=== PATIENT | female | born 1965 | race Caucasian/White ===

== ENCOUNTER → 2016-05-25 | Outpatient (CLI) | payer BC ==
[~2016-05-25] MED LIST: BUPRTAB51 PO; CALC-214 PO; CHOL100010 PO; CYAN10005 PO; L-ME1CAP PO; OMEGCAP2 PO; SERT-234 PO
== END | disposition home or self-care (01) ==
LOC: C.CPL 16:17
DX: Z01.810 Encounter for preprocedural cardiovascular examination (principal)

== ENCOUNTER 2023-12-31 00:50 | Observation (INO) ==
[2023-12-31] MEDS: ONDANSETRON INJ 2 MG/ML 2 ML VIAL IV STA (01:24)
[2023-12-31] MEDS: SODIUM CHLORIDE 0.9% 1,000 ML IV ONE (01:25)
[2023-12-31 01:30] LABS: Basophils # (auto) 0.04 K/uL (0.00-0.20); Basophils % (auto) 0.4 %; Eosinophils # (auto) 0.04 K/uL (0.00-0.50); Eosinophils % (auto) 0.4 %; Hematocrit (blood only) 39.4 % (37.0-47.0); Hemoglobin 13.7 g/dl (12.0-16.0); Immature Granulocytes # (auto) 0.07 K/uL (0.01-0.20); Immature Granulocytes % (auto) 0.7 %; Lymphocytes # (auto) 1.06 K/uL (1.20-3.40); Lymphocytes % (auto) 10.1 %; Mean Corpuscular Hemoglobin 31.4 pg (25.0-34.0); Mean Corpuscular Hgb Conc 34.8 g/dL (32.0-36.0); Mean Corpuscular Volume 90.2 fL (80.0-100.0); Mean Platelet Volume 9.2 fL (9.4-12.4); Monocytes # (auto) 0.48 K/uL (0.11-0.59); Monocytes % (auto) 4.6 %; Neutrophils # (auto) 8.78 K/uL (1.40-6.50); Neutrophils % (auto) 83.8 %; Platelet Count 319 K/uL (130-400); RDW Coefficient of Variation 12.2 % (11.5-14.5); RDW Standard Deviation 40.6 fL (36.4-46.3); Red Blood Count 4.37 M/uL (4.20-5.40); White Blood Count 10.47 K/ul (4.8-10.8)
--- NOTE | 2023-12-31 01:42 | Emergency Department Note ---
History of Present Illness General Chief complaint: Vomiting Stated complaint: VOMITING Time Seen by Provider: 12/31/23 01:26 History of Present Illness Maximum Pain Intensity: 10 This 58-year-old female presents ER complaining of severe abdominal pain for the past few hours after eating white chili. Patient did make this herself. She has had a gastric bypass 14 years ago. No other abdominal surgeries. She has had vomiting without diarrhea. Patient denies chest pain, dyspnea, fever, cough, congestion, flulike illness. Home Medications Medication Instructions Recorded Confirmed Type cyanocobalamin (vitamin B-12) 1,000 mcg PO QAM 12/07/18 12/31/23 History 1,000 mcg tablet (Vitamin B-12) cholecalciferol (vitamin D3) 1,250 50,000 unit PO WK #12 caps 01/18/23 12/31/23 Rx mcg (50,000 unit) capsule bupropion HCl 150 mg tablet,12 hr 150 mg PO BID #180 ea 01/20/23 12/31/23 Rx sustained-release citalopram 20 mg tablet 20 mg PO HS #90 tabs 01/20/23 12/31/23 Rx Allergies Allergy/AdvReac Type Severity Reaction Status Date / Time hydrocodone Allergy Mild ITCHING Verified 03/23/23 08:57 Past Med/Surg History Problem List (Updated 12/31/23 @ 04:00 by Judie Garcia PA-C) Nausea & vomiting (Acute) Abdominal pain, acute (Acute) Acute hyponatremia (Acute) Chronic knee pain after total replacement of both knee joints Obesity, Class II, BMI 35-39.9 Vitamin D deficiency Restless legs syndrome Depression with anxiety Stress incontinence Hyperlipidemia Obese Iron deficiency Reactive airway disease (Acute) Vitamin D deficiency (Chronic) Depression with anxiety (Chronic) Medical History Sleep apnea Iron deficiency anemia Fibromyalgia Osteoarthritis Depression Anxiety Restless leg syndrome Surgical History History of trigger finger left hand middle finger History of arthroplasty of finger of right hand thumb joint History of arthroscopy of right knee History of total left knee replacement (TKR) History of total right knee replacement (TKR) History of gastric bypass History of esophagogastroduodenoscopy (EGD) History of tooth extraction History of wisdom tooth extraction Family History Grandmother (Maternal) Family hx of colon cancer Colorectal cancer Mother Atrial fibrillation Father COPD (chronic obstructive pulmonary disease) Sister Obesity Brother Arthritis Grandmother (Maternal) Colorectal cancer Other No family history of adverse response to anesthesia Denies family history of Ovarian cancer Breast cancer Social History Smoking Status: Never smoker Second Hand Exposure: Yes (father smoked); Do You Dip or Chew Tobacco: No; Hx Alcohol Use: Yes Alcohol type: beer, wine and hard liquor Alcohol Intake Frequency: Monthly or Less Hx Substance Use: No Preferred Language: Lithuanian Communication Ability: Effective Human Resources Clerk Required: No Beliefs That Will Affect Care: None marital status: Current Living Situation: Spouse current occupational status: employed current occupation: [employer] How many Children do You have: 1 Feels Safe at Home: Yes Childhood Exposure to Second-Hand Smoke: Yes Diet: regular caffeine: Yes Dental Care, Regularly: Yes Physical Activity Frequency: 1-2 Times per Week Seatbelt Use: always Sunscreen Use: No Assistive Devices: Contacts Review of Systems A total of 10 systems reviewed and were otherwise negative Physical Exam Vital Signs Vital Signs - 24 hr 12/31/23 00:52 12/31/23 01:08 12/31/23 01:09 Temperature 36.6 C Temperature Source Temporal Artery Scan Pulse Rate 60 56 L Pulse Rate [Apical] 59 L Respiratory Rate 24 19 17 Respiratory Effort / Characteristics Non-Labored Spontaneous Respiratory Depth Normal Respiratory Pattern Blood Pressure 164/92 H Blood Pressure [Left Arm] 158/118 H Blood Pressure Mean 116 Blood Pressure Mean [Left Arm] 131 Blood Pressure Position [Left Arm] Pulse Oximetry 100 100 100 Oxygen Delivery Method Room Air Room Air Room Air Sepsis Recent Fever Within 48 Hours No Sepsis New/Unexplained Change in Mental Status N/A Sepsis Action Taken by Nursing No Action Required 12/31/23 03:00 Temperature Temperature Source Pulse Rate Pulse Rate [Apical] 57 L Respiratory Rate 18 Respiratory Effort / Characteristics Non-Labored Spontaneous Respiratory Depth Normal Respiratory Pattern Regular Blood Pressure Blood Pressure [Left Arm] 152/90 H Blood Pressure Mean Blood Pressure Mean [Left Arm] 110 Blood Pressure Position [Left Arm] Sitting Pulse Oximetry 96 Oxygen Delivery Method Room Air Sepsis Recent Fever Within 48 Hours Sepsis New/Unexplained Change in Mental Status Sepsis Action Taken by Nursing VITALS: Vitals are noted on the nurse's note and reviewed by myself. Vital signs stable. GENERAL: Pleasant patient, in no acute distress, nondiaphoretic, well-developed well-nourished. SKIN: Capillary reflex less than 2 seconds. HEENT: Normocephalic. PERRLA. EOMI. Nares patent. Mucous membranes moist. Neck is supple without nuchal rigidity. HEART: Regular rate and rhythm LUNGS: Clear to auscultation bilaterally without wheezes, rales or rhonchi. No retractions or accessory muscle use. ABDOMEN: Positive bowel sounds x 4. Normal tympanic percussion. Soft, tender to palpation mid abdomen, without masses or organomegaly. Giles sign negative. No guarding or rebound tenderness. no CVA tenderness MUSCULOSKELETAL: No gross musculoskeletal defects. NEURO: Patient was alert and oriented to person place and time. No focal neurological deficits. Course Administered Medications Sodium Chloride (Nss) 1,000 mls @ 125 mls/hr IV .Q8H JENN Stop: 01/30/24 03:14 Last Admin: 12/31/23 03:47 Dose: 125 mls/hr Documented By: ANTHONY Discontinued Medications Dicyclomine HCl (Dicyclomine Hcl 10 Mg/Ml 2 Ml Amp/Vial) 20 mg IM NOW ONE Stop: 12/31/23 01:36 Last Admin: 12/31/23 02:07 Dose: 20 mg Documented By: JED Sodium Chloride (Nss) 1,000 mls @ 999 mls/hr IV .Q1H1M ONE Stop: 12/31/23 02:20 Last Infusion: 12/31/23 02:57 Dose: Infused Documented By: Admin: 12/31/23 01:25 Dose: 999 mls/hr Documented By: JED Famotidine (Pepcid 20mg Iv Push) 20 mg in 5 mls @ 2.5 mls/min IV NOW STA Stop: 12/31/23 01:36 Last Admin: 12/31/23 02:07 Dose: 2.5 mls/min Documented By: JED Acetaminophen (Ofirmev) 1,000 mg in 100 mls @ 400 mls/hr IV NOW STA Stop: 12/31/23 01:49 Last Infusion: 12/31/23 02:17 Dose: Infused Documented By: Admin: 12/31/23 02:07 Dose: 400 mls/hr Documented By: JED Ioversol (Optiray 320 100ml) 100 ml IV ONCE ONE Stop: 12/31/23 02:06 Last Admin: 12/31/23 02:06 Dose: 93 ml Documented By: ALYSON Ondansetron HCl (Ondansetron Inj 2 Mg/Ml 2 Ml Vial) 4 mg IV NOW STA Stop: 12/31/23 01:21 Last Admin: 12/31/23 01:24 Dose: 4 mg Documented By: JED Medical Decision Making Medical Records Attestation: I reviewed the patient's medical records. Home Medications Current Medication List: was personally reviewed by me Laboratory Data Attestation: I reviewed the patient's lab results. 12/31/23 01:13 12/31/23 01:13 Lab Results 12/31/23 12/31/23 12/31/23 Range/Units 01:12 01:13 03:35 WBC 10.47 (4.8-10.8) K/ul RBC 4.37 (4.20-5.40) M/uL Hgb 13.7 (12.0-16.0) g/dl Hct 39.4 (37.0-47.0) % MCV 90.2 (80.0-100.0) fL MCH 31.4 (25.0-34.0) pg MCHC 34.8 (32.0-36.0) g/dL RDW Std Deviation 40.6 (36.4-46.3) fL RDW Coeff of Zahida 12.2 (11.5-14.5) % Plt Count 319 (130-400) K/uL MPV 9.2 L (9.4-12.4) fL Immature Gran % (Auto) 0.7 % Neut % (Auto) 83.8 % Lymph % (Auto) 10.1 % Forrest % (Auto) 4.6 % Eos % (Auto) 0.4 % Baso % (Auto) 0.4 % Neut # (Auto) 8.78 H (1.40-6.50) K/uL Lymph # (Auto) 1.06 L (1.20-3.40) K/uL Forrest # (Auto) 0.48 (0.11-0.59) K/uL Eos # (Auto) 0.04 (0.00-0.50) K/uL Baso # (Auto) 0.04 (0.00-0.20) K/uL Immature Gran # (Auto) 0.07 (0.01-0.20) K/uL Sodium 130 L (136-145) mmol/L Potassium 3.7 (3.5-5.1) mmol/L Chloride 93 L (98-107) mmol/L Carbon Dioxide 24 (21-32) mmol/L Anion Gap 13 H (3-11) BUN 13 (6-23) mg/dl Creatinine 0.66 (0.6-1.2) mg/dl Est Cr Clr Drug Dosing 101.4 ml/min Est GFR ( Amer) 112.9 ml/min Est GFR (Non-Af Amer) 97.4 ml/min BUN/Creatinine Ratio 19.7 (10-20) Glucose 141 H (70-99(Fasting)) mg/dl Osmolality 273 L (280-300) mOsm/kg Lactate 0.9 (0.4-2.0) mmol/L Calcium 10.3 (8.6-10.3) mg/dl Magnesium 1.9 (1.7-2.4) mg/dl Total Bilirubin 0.7 (0.2-1.0) mg/dl AST 25 (13-39) U/L ALT 18 (7-52) U/L Alkaline Phosphatase 127 H (34-104) U/L Total Protein 7.9 (6.0-8.3) gm/dl Albumin 5.0 (3.4-5.0) gm/dl Globulin 2.9 (2.5-4.0) gm/dl Albumin/Globulin Ratio 1.7 (0.9-2) Lipase 20 (11-82) U/L HCG, Qual Negative (Negative) Urine Color Urine Appearance (Clear) Urine pH (4.5-7.5) Ur Specific [place] (1.000-1.030) Urine Protein (Negative) Urine Glucose (UA) (Negative) Urine Ketones (Negative) Urine Blood (Negative) Urine Nitrite (Negative) Urine Bilirubin (Negative) Urine Urobilinogen (Negative) Ur Leukocyte Esterase (Negative) 12/31/23 Range/Units 03:44 WBC (4.8-10.8) K/ul RBC (4.20-5.40) M/uL Hgb (12.0-16.0) g/dl Hct (37.0-47.0) % MCV (80.0-100.0) fL MCH (25.0-34.0) pg MCHC (32.0-36.0) g/dL RDW Std Deviation (36.4-46.3) fL RDW Coeff of Zahida (11.5-14.5) % Plt Count (130-400) K/uL MPV (9.4-12.4) fL Immature Gran % (Auto) % Neut % (Auto) % Lymph % (Auto) % Forrest % (Auto) % Eos % (Auto) % Baso % (Auto) % Neut # (Auto) (1.40-6.50) K/uL Lymph # (Auto) (1.20-3.40) K/uL Forrest # (Auto) (0.11-0.59) K/uL Eos # (Auto) (0.00-0.50) K/uL Baso # (Auto) (0.00-0.20) K/uL Immature Gran # (Auto) (0.01-0.20) K/uL Sodium (136-145) mmol/L Potassium (3.5-5.1) mmol/L Chloride (98-107) mmol/L Carbon Dioxide (21-32) mmol/L Anion Gap (3-11) BUN (6-23) mg/dl Creatinine (0.6-1.2) mg/dl Est Cr Clr Drug Dosing ml/min Est GFR ( Amer) ml/min Est GFR (Non-Af Amer) ml/min BUN/Creatinine Ratio (10-20) Glucose (70-99(Fasting)) mg/dl Osmolality (280-300) mOsm/kg Lactate (0.4-2.0) mmol/L Calcium (8.6-10.3) mg/dl Magnesium (1.7-2.4) mg/dl Total Bilirubin (0.2-1.0) mg/dl AST (13-39) U/L ALT (7-52) U/L Alkaline Phosphatase (34-104) U/L Total Protein (6.0-8.3) gm/dl Albumin (3.4-5.0) gm/dl Globulin (2.5-4.0) gm/dl Albumin/Globulin Ratio (0.9-2) Lipase (11-82) U/L HCG, Qual (Negative) Urine Color Yellow Urine Appearance Clear (Clear) Urine pH 8.5 H (4.5-7.5) Ur Specific [place] 1.017 (1.000-1.030) Urine Protein Negative (Negative) Urine Glucose (UA) Negative (Negative) Urine Ketones 1+ H (Negative) Urine Blood Negative (Negative) Urine Nitrite Negative (Negative) Urine Bilirubin Negative (Negative) Urine Urobilinogen Negative (Negative) Ur Leukocyte Esterase Negative (Negative) Imaging Data Attestation: I personally reviewed and interpreted this imaging study as follows: Radiologist's Impression: Abdomen/Pelvis CT 12/31/23 01:35 Exam(s): CT ABDOMEN + PELVIS With Contrast IV Amt: 93 MLOPTIRAY 320 EXAM: CT Abdomen and Pelvis With Intravenous Contrast CLINICAL HISTORY: Reason for exam: mid abd pain. TECHNIQUE: Axial computed tomography images of the abdomen and pelvis with intravenous contrast. CTDI is 27.28 mGy and DLP is 1366.12 mGy-cm. Automated exposure control was utilized for the study. A dose lowering technique was utilized adhering to the principles of ALARA. CONTRAST: Patient received 93 ML OPTIRAY 320 of IV contrast COMPARISON: No relevant prior studies available. FINDINGS: Lung bases: No consolidation. There are calcifications noted the lung bases compatible with old granulomatous disease. The heart is not enlarged but contains coronary artery calcifications. ABDOMEN: Liver: No mass. Gallbladder and bile ducts: No calcified stones. No ductal dilation. Pancreas: No mass. No ductal dilation. Spleen: No splenomegaly. Adrenals: No mass. Kidneys and ureters: No solid mass. No hydronephrosis. Stomach and bowel: There are postoperative changes involving the bowel. There is thickening of the distal esophageal wall. There is a small hiatal hernia. Stomach is distended containing fluid. There are distended loops of proximal and mid small bowel containing air and fluid. There is air and stool noted in the colon.. PELVIS: Appendix: Unremarkable CT scan appearance noted the appendix.. Bladder: No calculi are noted within the bladder.. Reproductive: Unremarkable as visualized. ABDOMEN and PELVIS: Intraperitoneal space: No free air. No significant fluid collection. Bones/joints: There are degenerative changes in the spine.. Soft tissues: Unremarkable. Vasculature: No abdominal aortic aneurysm. Lymph nodes: No enlarged lymph nodes. IMPRESSION: Stomach is distended containing fluid. There are distended loops of proximal and mid small bowel containing air and fluid. There is a small hiatal hernia. There is thickening of the distal esophageal wall. See discussion above. Electronically signed by: Justen Aly MD 12/31/23 03:47 AM MDM Narrative Prior records/ancillary studies reviewed. Triage Nursing notes reviewed. Additional history obtained from family. The patient's history was concerning for abdominal pain. Differential diagnosis: Etiologies such as appendicitis, diverticulitis, PUD, biliary pathology, UTI, pancreatitis, obstruction, mesenteric ischemia, aortic pathology, infections, inflammatory bowel disease, renal colic, as well as others were entertained. Physical examination findings: As above. ER treatment provided: An order was placed for continuous cardiac monitoring. The monitor shows a rate of 60-100 with a sinus rhythm per my Independent interpretation. IV fluids, Pepcid, Zofran, Bentyl and Tylenol were ordered On reassessment the patient felt better. Diagnostics interpreted by me: The labs Independently Interpreted by myself revealed hyponatremia and osmolarity levels were ordered No worrisome leukocytosis, stable H&H Negative lactic Imaging studies: CT was reviewed and read by radiology as above Consultation: A consultation was placed with the surgeon. The case was discussed and diagnostics were reviewed. He recommends medical admission Medicine was consulted and the case is discussed. Patient will be admitted to the medical service. Exam and history seem consistent with possible partial small bowel obstruction. Surgery and medicine were consulted. Surgery recommends medical admission. Medicine was consulted and case discussed. Patient will be admitted to the medical service. Patient was not vomiting so no NG tube was placed. Stable labs. She is agreeable treatment plan of admission. By the evaluation outlined above emergent etiologies such as appendicitis, diverticulitis, PUD, biliary pathology, UTI, pancreatitis, mesenteric ischemia, aortic pathology, inflammatory bowel disease, renal colic, as well as others were deemed relatively unlikely. The pt informed about the findings as listed above. All questions were answered and pleased with the treatment. The chart was completed utilizing [employer] voice recognition software. Grammatical errors, random word insertions, pronoun errors, and incomplete sentences are an occassional consequence of this system due to software limitations, ambient noise, and hardware issues. Any formal questions or concerns about the content, text, or information contained within the body of this dictation should be directly addressed to the physician industrial hire sales assistant for clarification. Impression & Plan Abdominal pain, acute, Acute hyponatremia, Nausea & vomiting Discharge Plan Visit Data Chief Complaint: Vomiting Stated Complaint: VOMITING ED Provider: Bobby Camarena ED Midlevel Provider: Judie Garcia Discharge Problem: Abdominal pain, acute, Acute hyponatremia, Nausea & vomiting Patient Disposition: Admitted As Inpatient Condition: Good Forms Stand Alone Forms: My [employer] Prescriptions Prescriptions: No Action cholecalciferol (vitamin D3) 1,250 mcg (50,000 unit) capsule 50,000 unit PO WK Qty: 12 3RF bupropion HCl 150 mg tablet sustained-release 12 hr 150 mg PO BID Qty: 180 3RF citalopram 20 mg tablet 20 mg PO HS Qty: 90 3RF cyanocobalamin (vitamin B-12) [Vitamin B-12] 1,000 mcg Tablet 1,000 mcg PO QAM Referrals Referrals: Sanjeev Weinberg MD [Primary Care Provider] -
[2023-12-31 01:47] LABS: Albumin Globulin Ratio 1.7 (0.9-2); BUN Creatinine Ratio 19.7 (10-20); Bilirubin,Total 0.7 mg/dl (0.2-1.0); Calcium 10.3 mg/dl (8.6-10.3); Creatinine Clr Calc Pharmacy 101.4 ml/min; Est GFR (African American) 112.9 ml/min; Est GFR (Non-African American) 97.4 ml/min; Globulin 2.9 gm/dl (2.5-4.0); Potassium 3.7 mmol/L (3.5-5.1); Total Protein 7.9 gm/dl (6.0-8.3)
[2023-12-31 01:48] LABS: Pregnancy Test, Serum Negative (Negative)
[2023-12-31 01:54] LABS: Magnesium 1.9 mg/dl (1.7-2.4)
[2023-12-31] MEDS: OPTIRAY 320 100ml IV ONE (02:06)
[2023-12-31] MEDS: FAMOTIDINE 20MG IV PUSH 20 MG/5 ML SYR IV STA (02:07)
[2023-12-31] MEDS: ACETAMINOPHEN 1,000 MG/100 ML VIAL IV STA (02:07)
[2023-12-31] MEDS: DICYCLOMINE HCL 10 MG/ML 2 ML AMP/VIAL IM ONE (02:07)
[2023-12-31] MEDS: SODIUM CHLORIDE 0.9% 1,000 ML IV SCH (03:47)
--- NOTE | 2023-12-31 03:48 | CT Scan Report ---
Exam(s): CT ABDOMEN + PELVIS With Contrast IV Amt: 93 MLOPTIRAY 320 EXAM: CT Abdomen and Pelvis With Intravenous Contrast CLINICAL HISTORY: Reason for exam: mid abd pain. TECHNIQUE: Axial computed tomography images of the abdomen and pelvis with intravenous contrast. CTDI is 27.28 mGy and DLP is 1366.12 mGy-cm. Automated exposure control was utilized for the study. A dose lowering technique was utilized adhering to the principles of ALARA. CONTRAST: Patient received 93 ML OPTIRAY 320 of IV contrast COMPARISON: No relevant prior studies available. FINDINGS: Lung bases: No consolidation. There are calcifications noted the lung bases compatible with old granulomatous disease. The heart is not enlarged but contains coronary artery calcifications. ABDOMEN: Liver: No mass. Gallbladder and bile ducts: No calcified stones. No ductal dilation. Pancreas: No mass. No ductal dilation. Spleen: No splenomegaly. Adrenals: No mass. Kidneys and ureters: No solid mass. No hydronephrosis. Stomach and bowel: There are postoperative changes involving the bowel. There is thickening of the distal esophageal wall. There is a small hiatal hernia. Stomach is distended containing fluid. There are distended loops of proximal and mid small bowel containing air and fluid. There is air and stool noted in the colon.. PELVIS: Appendix: Unremarkable CT scan appearance noted the appendix.. Bladder: No calculi are noted within the bladder.. Reproductive: Unremarkable as visualized. ABDOMEN and PELVIS: Intraperitoneal space: No free air. No significant fluid collection. Bones/joints: There are degenerative changes in the spine.. Soft tissues: Unremarkable. Vasculature: No abdominal aortic aneurysm. Lymph nodes: No enlarged lymph nodes. IMPRESSION: Stomach is distended containing fluid. There are distended loops of proximal and mid small bowel containing air and fluid. There is a small hiatal hernia. There is thickening of the distal esophageal wall. See discussion above. Electronically signed by: Justen Aly MD 12/31/23 03:47 AM
[2023-12-31 03:56] LABS: Appearance Urine Clear (Clear); Bilirubin Urine Negative (Negative); Blood Urine Negative (Negative); Color Urine Yellow; Glucose Urine UA Negative (Negative); Ketones Urine 1+ (Negative); Leukocyte Esterase Urine Negative (Negative); Nitrite Urine Negative (Negative); Protein Urine Negative (Negative); Specific Gravity Urine 1.017 (1.000-1.030); Urobilinogen Urine Negative (Negative); pH Urine 8.5 (4.5-7.5)
--- NOTE | 2023-12-31 04:12 | History & Physical Report ---
Date of Service December 31, 2023 Assessment & Plan (1) Small bowel obstruction: Plan: -Patient with nausea vomiting after a couple hours of eating white chili. She also is having abdominal pain. The symptoms resolved with Zofran, Bentyl, and IV Tylenol. -Abdominal pelvis CT showed distended loops of proximal and mid small bowel containing air-fluid. Small hiatal hernia. Thickening of the distal esophageal wall -ED provider reached out to surgery who recommends medical admit. -Surgery consulted. -Do not see the need for NG tube at this time as patient's nausea vomiting is stopped. -Zofran as needed. IV Tylenol for pain, has an allergy to hydrocodone, will hold off on any as patient's abdominal pain is stable at time of admission. -Strict n.p.o. -LR at 125. (2) Vitamin D deficiency: Plan: -Holding home medication due to n.p.o. status. (3) Depression with anxiety: Plan: -Holding home medication due to n.p.o. status (4) Acute hyponatremia: Plan: -Sodium of 130 in the ED. -Patient did state that she sometimes has short-term memory issues, though this has been worked up by her PCP and had neuropsych testing which was negative. -Continue on LR. -CMP on morning labs. Plan Fluids: LR at 125 Nutrition: N.p.o. Code status: full code DVT ppx: SCDs Consults: Surgery Dispo: med/surg History of Present Illness Chief Complaint: abd pain, poss SBO Primary Care Provider: Sanjeev Weinberg MD Patient is a 58-year-old with past medical history of depression, obesity, iron deficiency, and vitamin D deficiency, and history of gastric bypass 14 years ago who presents to the hospital with abdominal pain and possible small bowel obstruction. Patient was eating white chili for dinner and started to have diffuse abdominal pain with nausea and vomiting. This started to occur around 730 p.m. Patient then took some Tums which helped slightly. Her last bowel movement was formed at 10:30 PM. Denies any hematochezia or hematemesis. States that this was a large formed bowel movement. Denies any diarrhea. Denies any fevers, chills, chest pain, dysuria. Patient does state that she has some trouble remembering some episodes. She has had some memory issues in the past that has been worked up by her PCP with neuropsych testing being negative. Allergies Allergy/AdvReac Type Severity Reaction Status Date / Time hydrocodone Allergy Mild ITCHING Verified 03/23/23 08:57 Home Medications Medication Instructions Recorded Confirmed Type cyanocobalamin (vitamin B-12) 1,000 mcg PO QAM 12/07/18 12/31/23 History 1,000 mcg tablet (Vitamin B-12) cholecalciferol (vitamin D3) 1,250 50,000 unit PO WK #12 caps 01/18/23 12/31/23 Rx mcg (50,000 unit) capsule bupropion HCl 150 mg tablet,12 hr 150 mg PO BID #180 ea 01/20/23 12/31/23 Rx sustained-release citalopram 20 mg tablet 20 mg PO HS #90 tabs 01/20/23 12/31/23 Rx Past Med/Surg History Problem List (Updated 12/31/23 @ 04:42 by Charlie Scott, DO) Small bowel obstruction Nausea & vomiting (Acute) Abdominal pain, acute (Acute) Acute hyponatremia (Acute) Chronic knee pain after total replacement of both knee joints Obesity, Class II, BMI 35-39.9 Vitamin D deficiency Restless legs syndrome Depression with anxiety Stress incontinence Hyperlipidemia Obese Iron deficiency Reactive airway disease (Acute) Vitamin D deficiency (Chronic) Depression with anxiety (Chronic) Medical History Sleep apnea Iron deficiency anemia Fibromyalgia Osteoarthritis Depression Anxiety Restless leg syndrome Surgical History History of trigger finger left hand middle finger History of arthroplasty of finger of right hand thumb joint History of arthroscopy of right knee History of total left knee replacement (TKR) History of total right knee replacement (TKR) History of gastric bypass History of esophagogastroduodenoscopy (EGD) History of tooth extraction History of wisdom tooth extraction Family History Grandmother (Maternal) Family hx of colon cancer Colorectal cancer Mother Atrial fibrillation Father COPD (chronic obstructive pulmonary disease) Sister Obesity Brother Arthritis Grandmother (Maternal) Colorectal cancer Other No family history of adverse response to anesthesia Denies family history of Ovarian cancer Breast cancer Social History Smoking Status: Never smoker Second Hand Exposure: Yes (father smoked); Do You Dip or Chew Tobacco: No; Hx Alcohol Use: Yes Alcohol type: beer, wine and hard liquor Alcohol Intake Frequency: Monthly or Less Hx Substance Use: No Preferred Language: Slovenian Communication Ability: Effective Director Process Engineering Required: No Beliefs That Will Affect Care: None marital status: Current Living Situation: Spouse current occupational status: employed current occupation: [employer] How many Children do You have: 1 Feels Safe at Home: Yes Childhood Exposure to Second-Hand Smoke: Yes Diet: regular caffeine: Yes Dental Care, Regularly: Yes Physical Activity Frequency: 1-2 Times per Week Seatbelt Use: always Sunscreen Use: No Assistive Devices: Contacts Review of Systems Review of Systems: All systems reviewed & are unremarkable except as noted in Subjective Physical Exam Physical Exam: Constitutional: well-appearing, no acute distress HEENT: NCAT, no conjunctival injection CV: regular rhythm, no murmur appreciated, extremities well-perfused, no LE edema Resp: CTABL, no wheezes/rales/rhonchi appreciated, no increased work of breathing GI: soft, nondistended, diffuse abdominal tenderness, BS normoactive MSK: no gross deformities appreciated Skin: warm, dry, no rash appreciated Neuro: alert, oriented, no focal neurologic deficit appreciated Results & Data Results & Data Vital Signs (Past 12 Hours) Vital Signs Temp Pulse Pulse Resp BP BP Pulse Ox 12/31/23 03:00 57 L 18 152/90 H 96 12/31/23 01:09 59 L 17 158/118 H 100 12/31/23 01:08 56 L 19 100 12/31/23 00:52 36.6 C 60 24 164/92 H 100 O2 Del Method 12/31/23 03:00 Room Air 12/31/23 01:09 Room Air 12/31/23 01:08 Room Air 12/31/23 00:52 Room Air Supervising Physician Co-Signing Physician Notes Attending addendum: I have physically seen this patient, have supervised the medical residents activities, and agree with the H&P unless as otherwise noted. Assessment and Plan: Small bowel obstruction/severe abdominal pain/distended stomach with fluid/history of gastric bypass 14 years ago- NPO Zofran 4 mg IV every 6 hours as needed Acetaminophen 1 g IV every 8 hours as needed for mild pain or fever LR at 125 mL/h Status post normal saline 1 L bolus from the ED From the ED also received the following: Zofran 4 mg IV, famotidine 20 mg IV, Bentyl 20 mg IM, and Tylenol 1 g IV Pantoprazole 40 mg IV daily to address thickening of the distal esophageal wall Consult general surgery Hyponatremia- Sodium 130 on admission Likely associated with decreased oral intake IV fluids as noted above, recheck laboratories in the a.m. Depression with anxiety- For now, while n.p.o., hold bupropion and citalopram If any issues develop, could be given individual dosings of lorazepam 0.5 mg IV Resident Activity Tracking Resident Involvement: Resident Care Provided Care Provided: Adult Hospital Medicine
--- NOTE | 2023-12-31 06:00 | Billing Data ---
Date of Service December 31, 2023 Coding Level of Care Code 25966 INT INP/OBS CARE
[2023-12-31] MEDS: LACTATED RINGER'S 1,000 ML IV SCH (06:04)
[2023-12-31] MEDS: ONDANSETRON INJ 2 MG/ML 2 ML VIAL IV PRN (06:13)
[2023-12-31] MEDS: ACETAMINOPHEN 1,000 MG/100 ML VIAL IV PRN (06:42)
[2023-12-31] MEDS: PANTOprazole 40 MG in SYRINGE 0 ML IV SCH (10:37)
--- NOTE | 2023-12-31 13:47 | Surgery Consultation ---
Date of Consultation December 31, 2023 Assessment & Plan (1) Small bowel obstruction: History of Ale-en-Y gastric bypass, now with partial small bowel obstruction. She appears to be feeling better and is feeling hungry. We will wait till she has better return of bowel function before advancing her diet. No surgical intervention at this time If she starts to have more meaningful return of bowel function, we may advance her to clear liquids KUB tomorrow Surgical follow, call with questions or concerns (2) History of gastric bypass: (3) Obese: (4) Hyperlipidemia: History of Present Illness Attending Physician: Saravanan Martinez MD History of Present Illness 58-year-old female with history of Ale-en-Y gastric bypass presented with abdominal pain. Started after eating homemade white chicken chili for lunch and for dinner. She thought maybe the sour cream was old. She started having nausea and vomiting and felt bloated. This is not happened to her before. No history of other bowel obstructions or internal hernia. Allergies Allergy/AdvReac Type Severity Reaction Status Date / Time hydrocodone Allergy Mild ITCHING Verified 03/23/23 08:57 Home Medications Medication Instructions Recorded Confirmed Type cyanocobalamin (vitamin B-12) 1,000 mcg PO QAM 12/07/18 12/31/23 History 1,000 mcg tablet (Vitamin B-12) cholecalciferol (vitamin D3) 1,250 50,000 unit PO WK #12 caps 01/18/23 12/31/23 Rx mcg (50,000 unit) capsule bupropion HCl 150 mg tablet,12 hr 150 mg PO BID #180 ea 01/20/23 12/31/23 Rx sustained-release citalopram 20 mg tablet 20 mg PO HS #90 tabs 01/20/23 12/31/23 Rx Patient History Medical History Sleep apnea Iron deficiency anemia Fibromyalgia Osteoarthritis Depression Anxiety Restless leg syndrome Surgical History History of trigger finger left hand middle finger History of arthroplasty of finger of right hand thumb joint History of arthroscopy of right knee History of total left knee replacement (TKR) History of total right knee replacement (TKR) History of gastric bypass History of esophagogastroduodenoscopy (EGD) History of tooth extraction History of wisdom tooth extraction Family History Grandmother (Maternal) Family hx of colon cancer Colorectal cancer Mother Atrial fibrillation Father COPD (chronic obstructive pulmonary disease) Sister Obesity Brother Arthritis Grandmother (Maternal) Colorectal cancer Other No family history of adverse response to anesthesia Denies family history of Ovarian cancer Breast cancer Social History Smoking Status: Never smoker Second Hand Exposure: No; Do You Dip or Chew Tobacco: No; Hx Alcohol Use: Yes Alcohol type: beer, wine and hard liquor Alcohol Intake Frequency: Monthly or Less Hx Substance Use: No Preferred Language: Vietnamese Communication Ability: Effective Automation Specialist Required: No Beliefs That Will Affect Care: None marital status: Current Living Situation: Spouse current occupational status: employed current occupation: [employer] How many Children do You have: 1 Feels Safe at Home: Yes Childhood Exposure to Second-Hand Smoke: Yes Diet: regular caffeine: Yes Dental Care, Regularly: Yes Physical Activity Frequency: 1-2 Times per Week Seatbelt Use: always Sunscreen Use: No Assistive Devices: Contacts Review of Systems Review of Systems: All systems reviewed & are unremarkable except as noted in HPI & below Physical Exam Constitutional: WD/WN, vitals as above Respiratory: normal respiratory effort, lungs clear to auscultation Cardiovascular: RRR, no murmur, no edema Gastrointestinal (Abdomen): normal bowel sounds, soft, nontender, no hepatosplenomegaly Inspection/Auscultation: + abdominal surgical scar Results & Data Vital Signs (Past 12 Hours) Vital Signs Temp Pulse Pulse Resp BP Pulse Ox O2 Del Method 12/31/23 09:10 Room Air 12/31/23 07:16 36.7 C 61 20 113/71 95 Room Air 12/31/23 05:55 36.9 C 60 18 164/93 H 95 Room Air 12/31/23 05:55 36.9 C 60 18 164/93 H 95 Room Air 12/31/23 05:00 61 18 141/79 H 92 Room Air 12/31/23 03:00 57 L 18 152/90 H 96 Room Air Diagnostic Findings Personally viewed and interpreted the CT scan agree with the assessment of possible small bowel obstruction. This appears to involve the remnant stomach. There is no obvious evidence of internal hernia on the CT. Exam(s): CT ABDOMEN + PELVIS With Contrast IV Amt: 93 MLOPTIRAY 320 EXAM: CT Abdomen and Pelvis With Intravenous Contrast CLINICAL HISTORY: Reason for exam: mid abd pain. TECHNIQUE: Axial computed tomography images of the abdomen and pelvis with intravenous contrast. CTDI is 27.28 mGy and DLP is 1366.12 mGy-cm. Automated exposure control was utilized for the study. A dose lowering technique was utilized adhering to the principles of ALARA. CONTRAST: Patient received 93 ML OPTIRAY 320 of IV contrast COMPARISON: No relevant prior studies available. FINDINGS: Lung bases: No consolidation. There are calcifications noted the lung bases compatible with old granulomatous disease. The heart is not enlarged but contains coronary artery calcifications. ABDOMEN: Liver: No mass. Gallbladder and bile ducts: No calcified stones. No ductal dilation. Pancreas: No mass. No ductal dilation. Spleen: No splenomegaly. Adrenals: No mass. Kidneys and ureters: No solid mass. No hydronephrosis. Stomach and bowel: There are postoperative changes involving the bowel. There is thickening of the distal esophageal wall. There is a small hiatal hernia. Stomach is distended containing fluid. There are distended loops of proximal and mid small bowel containing air and fluid. There is air and stool noted in the colon.. PELVIS: Appendix: Unremarkable CT scan appearance noted the appendix.. Bladder: No calculi are noted within the bladder.. Reproductive: Unremarkable as visualized. ABDOMEN and PELVIS: Intraperitoneal space: No free air. No significant fluid collection. Bones/joints: There are degenerative changes in the spine.. Soft tissues: Unremarkable. Vasculature: No abdominal aortic aneurysm. Lymph nodes: No enlarged lymph nodes. IMPRESSION: Stomach is distended containing fluid. There are distended loops of proximal and mid small bowel containing air and fluid. There is a small hiatal hernia. There is thickening of the distal esophageal wall. See discussion above. Electronically signed by: Justen Aly MD 12/31/23 03:47 AM PG Care Time/CCT Total # of Minutes Spent Total Time Spent with Patient: Total time spent is greater than 50% in coordination of care (as documented) at patient's floor/unit and/or counseling patient: Coding Level of Care Code 90500 OFFICE CONSULT LVL M Diagnoses Small bowel obstruction K56.609 History of gastric bypass Z98.84 Class 2 obesity due to excess calories without serious comorbidity with body mass index (BMI) of 36.0 to 36.9 in adult E66.09; Z68.36 Obesity type: due to excess calories Obesity classification: adult class 2 (BMI 35 - 39.9) Serious obesity comorbidity presence: without serious comorbidity Body mass index: BMI 36.0-36.9 Pure hypercholesterolemia E78.00 Hyperlipidemia type: pure hypercholesterolemia (3) Obese Obesity type: due to excess calories Obesity classification: adult class 2 (BMI 35 - 39.9) Serious obesity comorbidity presence: without serious comorbidity Body mass index: BMI 36.0-36.9 Qualified Code(s): E66.09 - Other obesity due to excess calories; Z68.36 - Body mass index [BMI] 36.0-36.9, adult (4) Hyperlipidemia Hyperlipidemia type: pure hypercholesterolemia Qualified Code(s): E78.00 - Pure hypercholesterolemia, unspecified
[2023-12-31] MEDS: HYDROmorphone INJ 0.5 MG/0.5 ML SYR IV STA (14:23)
[2023-12-31] MEDS: buPROPion HCl 75 MG TABLET PO ONE (15:09)
--- NOTE | 2023-12-31 17:36 | Hospitalist Progress Note ---
Date of Service December 31, 2023 Assessment & Plan (1) Small bowel obstruction: Plan: Patient with nausea vomiting after a couple hours of eating white chili. She also is having abdominal pain. The symptoms resolved with Zofran, Bentyl, and IV Tylenol. - History of Ale-en-Y gastric bypass surgery approximately 16 years ago. - Abdominal pelvis CT showed distended loops of proximal and mid small bowel containing air-fluid. Small hiatal hernia. Thickening of the distal esophageal wall - Will defer NG tube placement at this time given nausea/vomiting resolved - General Surgery consulted > No surgical intervention at this time. > Continue n.p.o. status until more meaningful return of bowel function, and then advance to clear liquids. > KUB scheduled for 12/31 - Zofran as needed. IV Tylenol for pain, has an allergy to hydrocodone, will hold off on any as patient's abdominal pain is stable. - Continue IV fluids at 125 mls/hr (2) Vitamin D deficiency: Plan: Takes vitamin D3 and vitamin B12 supplementation at home -Continue to hold while n.p.o. status (3) Depression with anxiety: Plan: Takes bupropion and citalopram at home -Resumed bupropion per patient's request -Continue to hold citalopram until diet is advanced to clear liquids (4) Acute hyponatremia: Plan: Sodium of 130 in the ED. -Patient did state that she sometimes has short-term memory issues, though this has been worked up by her PCP and had neuropsych testing which was negative. -Continue on LR. -CMP on morning labs. Plan Updated multiple family members at bedside Resumed bupropion DVT ppx: SCDs CODE STATUS: Full code Admission and Anticipated Discharge Date Admission Date: December 31, 2023 Supervising Physician Co-Signing Physician Notes Attending Attestation - Chart reviewed, care plan d/w MANUELA Carrillo. I agree w/ the katz components of her documentation. SBO - appreciate gen surg input & recs. Cont conservative Rx. Saravanan Martinez MD Subjective Patient seen and evaluated at bedside with multiple family members. She reports that she is hungry and has a minor headache which she attributes to being hungry. She denies any abdominal pain, nausea, vomiting. She denies passing any gas or having a bowel movement at this time. We discussed maintaining n.p.o. status for today and waiting to advance to clear liquids until more bowel function returns. She is agreeable. She asked for her Wellbutrin to be resumed. No additional complaints or concerns at this time. Physical Exam Physical Exam: General: No acute distress, nondiaphoretic, well-developed, well-nourished. Skin: The skin was without rashes, erythema, edema, or bruising. Cardiac: Regular rate and rhythm without murmurs gallops or rubs. Pulm: Clear to auscultation bilaterally without wheezes, rales or rhonchi. No respiratory distress. 94% on room air. Abdominal: Soft, nontender, nondistended. Hypoactive bowel sounds. Neuro: A&O x3. No focal neurological deficits. Results & Data Results & Data Vital Signs (Past 12 Hours) Vital Signs Temp Pulse Resp BP Pulse Ox O2 Del Method 12/31/23 16:26 98.8 F 71 18 125/80 94 Room Air 12/31/23 09:10 Room Air 12/31/23 07:16 98.1 F 61 20 113/71 95 Room Air 12/31/23 05:55 98.4 F 60 18 164/93 H 95 Room Air 12/31/23 05:55 98.4 F 60 18 164/93 H 95 Room Air Laboratory Results Reviewed CBC Reviewed CMP Reviewed UA Diagnostic Findings Abdomen/Pelvis CT 12/31/23 01:35 Exam(s): CT ABDOMEN + PELVIS With Contrast IV Amt: 93 MLOPTIRAY 320 EXAM: CT Abdomen and Pelvis With Intravenous Contrast CLINICAL HISTORY: Reason for exam: mid abd pain. TECHNIQUE: Axial computed tomography images of the abdomen and pelvis with intravenous contrast. CTDI is 27.28 mGy and DLP is 1366.12 mGy-cm. Automated exposure control was utilized for the study. A dose lowering technique was utilized adhering to the principles of ALARA. CONTRAST: Patient received 93 ML OPTIRAY 320 of IV contrast COMPARISON: No relevant prior studies available. FINDINGS: Lung bases: No consolidation. There are calcifications noted the lung bases compatible with old granulomatous disease. The heart is not enlarged but contains coronary artery calcifications. ABDOMEN: Liver: No mass. Gallbladder and bile ducts: No calcified stones. No ductal dilation. Pancreas: No mass. No ductal dilation. Spleen: No splenomegaly. Adrenals: No mass. Kidneys and ureters: No solid mass. No hydronephrosis. Stomach and bowel: There are postoperative changes involving the bowel. There is thickening of the distal esophageal wall. There is a small hiatal hernia. Stomach is distended containing fluid. There are distended loops of proximal and mid small bowel containing air and fluid. There is air and stool noted in the colon.. PELVIS: Appendix: Unremarkable CT scan appearance noted the appendix.. Bladder: No calculi are noted within the bladder.. Reproductive: Unremarkable as visualized. ABDOMEN and PELVIS: Intraperitoneal space: No free air. No significant fluid collection. Bones/joints: There are degenerative changes in the spine.. Soft tissues: Unremarkable. Vasculature: No abdominal aortic aneurysm. Lymph nodes: No enlarged lymph nodes. IMPRESSION: Stomach is distended containing fluid. There are distended loops of proximal and mid small bowel containing air and fluid. There is a small hiatal hernia. There is thickening of the distal esophageal wall. See discussion above. Electronically signed by: Justen Aly MD 12/31/23 03:47 AM PG Care Time/CCT Total # of Minutes Spent Total Time Spent with Patient: Total time spent is greater than 50% in coordination of care (as documented) at patient's floor/unit and/or counseling patient: Coding Level of Care Code 91861 SUB INP/OBS CARE 3/50MIN Diagnoses Small bowel obstruction K56.609 Vitamin D deficiency E55.9 Depression with anxiety F41.8 Acute hyponatremia E87.1
[2023-12-31] MEDS: buPROPion SR 150 MG TABCR PO SCH (20:06)
[2023-12-31] MEDS: SENNA 8.6 MG TAB PO ONE (20:07)
[2023-12-31] MEDS: KETOROLAC TROMETHAMINE 15 MG/ML VIAL IV ONE (21:47)
[2023-12-31] MEDS: PROCHLORPERAZINE 5 MG in SYRINGE 4 ML IV ONE (22:25)
[2024-01-01 06:11] LABS: Basophils # (auto) 0.02 K/uL (0.00-0.20); Basophils % (auto) 0.3 %; Eosinophils # (auto) 0.16 K/uL (0.00-0.50); Eosinophils % (auto) 2.5 %; Hematocrit (blood only) 33.3 % (37.0-47.0); Hemoglobin 11.1 g/dl (12.0-16.0); Immature Granulocytes # (auto) 0.03 K/uL (0.01-0.20); Immature Granulocytes % (auto) 0.5 %; Lymphocytes # (auto) 1.41 K/uL (1.20-3.40); Lymphocytes % (auto) 22.4 %; Mean Corpuscular Hemoglobin 31.5 pg (25.0-34.0); Mean Corpuscular Hgb Conc 33.3 g/dL (32.0-36.0); Mean Corpuscular Volume 94.6 fL (80.0-100.0); Mean Platelet Volume 9.3 fL (9.4-12.4); Monocytes # (auto) 0.41 K/uL (0.11-0.59); Monocytes % (auto) 6.5 %; Neutrophils # (auto) 4.26 K/uL (1.40-6.50); Neutrophils % (auto) 67.8 %; Platelet Count 251 K/uL (130-400); RDW Coefficient of Variation 12.7 % (11.5-14.5); RDW Standard Deviation 43.6 fL (36.4-46.3); Red Blood Count 3.52 M/uL (4.20-5.40); White Blood Count 6.29 K/ul (4.8-10.8)
[2024-01-01 06:33] LABS: Albumin Globulin Ratio 1.7 (0.9-2); Albumin Level 3.6 gm/dl (3.4-5.0); BUN Creatinine Ratio 17.2 (10-20); Bilirubin,Total 0.5 mg/dl (0.2-1.0); Calcium 8.6 mg/dl (8.6-10.3); Creatinine Clr Calc Pharmacy 113.8 ml/min; Est GFR (African American) 117.8 ml/min; Est GFR (Non-African American) 101.6 ml/min; Globulin 2.1 gm/dl (2.5-4.0); Magnesium 1.8 mg/dl (1.7-2.4); Potassium 4.2 mmol/L (3.5-5.1); Total Protein 5.7 gm/dl (6.0-8.3)
--- NOTE | 2024-01-01 09:00 | Hospitalist Progress Note ---
Date of Service January 01, 2024 Assessment & Plan (1) Small bowel obstruction: Plan: Patient with nausea vomiting after a couple hours of eating white chili. She also is having abdominal pain. The symptoms resolved with Zofran, Bentyl, and IV Tylenol. - History of Ale-en-Y gastric bypass surgery approximately 16 years ago. - Abdominal pelvis CT showed distended loops of proximal and mid small bowel containing air-fluid. Small hiatal hernia. Thickening of the distal esophageal wall - Will defer NG tube placement at this time given nausea/vomiting resolved - General Surgery consulted > No surgical intervention at this time. > KUB 12/31 consistent with partial small bowel obstruction. > Continues to clinically improve. Was advanced to full liquid diet and has been well tolerating this. - Zofran as needed. IV Tylenol for pain, has an allergy to hydrocodone, will hold off on any as patient's abdominal pain is stable. - Patient reports lower abdominal gas pains. This is likely benign and just from her bowels waking back up. RN reported that she had an episode of emesis in the evening. Patient began complaining of abdominal pain and nausea again. Toradol and Compazine x1 ordered. Diet downgraded to clear liquids. If abdomi nal pain, nausea, or vomiting persists, further downgrade to NPO. (2) Vitamin D deficiency: Plan: Takes vitamin D3 and vitamin B12 supplementation at home (3) Depression with anxiety: Plan: Continue bupropion and citalopram (4) Acute hyponatremia: Plan: Sodium of 130 on admission. -Patient did state that she sometimes has short-term memory issues, though this has been worked up by her PCP and had neuropsych testing which was negative. -Continue on LR while NPO -Acute hyponatremia resolved, suspect secondary to decreased PO intake/emesis prior to admission Plan Updated at bedside Ordered Toradol and Compazine Downgraded diet to clears Resumed citalopram DVT ppx: SCDs CODE STATUS: Full code Admission and Anticipated Discharge Date Admission Date: December 31, 2023 Supervising Physician Co-Signing Physician Notes Attending Attestation - Chart reviewed, care plan d/w MANUELA Carrillo. I agree w/ the katz components of her documentation. Again appreciate general surgery recommendations & assistance. Not tolerating diet advancement unfortunately. Cont conservative Rx. Saravanan Martinez MD Subjective Patient seen and evaluated in bedside chair with her present. She has been advanced to full liquid diet and reports to be tolerating it okay. She reported some increased gas/bloating, but denies any abdominal pain, nausea, or vomiting. She notes that she walked laps around the hallways which did help alleviate her bloating sensation. She did have a bowel movement yesterday and continues to pass gas. No additional complaints or concerns at this time. Physical Exam Physical Exam: General: No acute distress, nondiaphoretic, well-developed, well-nourished. Skin: The skin was without rashes, erythema, edema, or bruising. Cardiac: Regular rate and rhythm without murmurs gallops or rubs. Pulm: Clear to auscultation bilaterally without wheezes, rales or rhonchi. No respiratory distress. 95% on room air. Abdominal: Soft, nontender, nondistended. Bowel sounds present. Neuro: A&O x3. No focal neurological deficits. Results & Data Results & Data Vital Signs (Past 12 Hours) Vital Signs Temp Pulse Pulse Resp BP Pulse Ox O2 Del Method 01/01/24 08:51 Room Air 01/01/24 07:51 98.8 F 67 14 135/85 97 Room Air 01/01/24 07:12 98.6 F 62 16 144/81 H 95 Room Air 12/31/23 22:26 138/85 Laboratory Results Reviewed CBC Reviewed CMP PG Care Time/CCT Total # of Minutes Spent Total Time Spent with Patient: Total time spent is greater than 50% in coordination of care (as documented) at patient's floor/unit and/or counseling patient: Coding Level of Care Code 71879 SUB INP/OBS CARE 3/50MIN Diagnoses Small bowel obstruction K56.609 Vitamin D deficiency E55.9 Depression with anxiety F41.8 Acute hyponatremia E87.1
--- NOTE | 2024-01-01 10:41 | XRay Report ---
XR KUB/Abdomen 1 view CLINICAL HISTORY: eval bowel/gas pattern TECHNIQUE: 1 view of the abdomen was obtained. Comparison: Comparison is made to CT abdomen pelvis 12/31/2023 FINDINGS: Lung bases are unremarkable. Degenerative changes are seen in the visualized skeleton. Gas dilated lo ops of small bowel measure up to 50 mm. A moderate amount of stool is noted within the large bowel. IMPRESSION: Findings compatible with small bowel obstruction versus ileus. ACT 112: Negative or not required by law. Electronically signed by: Kota Hanna M.D. 01/01/2024 10:40 AM
--- NOTE | 2024-01-01 10:59 | Surgery Progress Note ---
Date of Service January 01, 2024 Assessment & Plan (1) Small bowel obstruction: Plan: Pt with history of RYGB here with concern for SBO WBC 6.2, Vitals stable Reports feeling improvement in pain Did experience nausea yesterday s/p dinner, but tolerating clears this AM thus far KUB read as ongoing SBO vs ileus Continue on clears for now, if worsening n/v back down to npo Admission and Anticipated Discharge Date Admission Date: December 31, 2023 Supervising Physician Co-Signing Physician Notes Patient seen and examined, labs and imaging reviewed, agree with above. History of Ale-en-Y gastric bypass, admitted with small bowel obstruction. She has had a bowel movement and is passing flatus. She had 1 episode of cramping yesterday after clear liquids but this is improved. She is now tolerating clear liquids without incident. On exam she is afebrile with stable vitals, abdomen soft, nondistended, nontender. KUB personally viewed and interpreted agree with the assessment of dilated small bowel up to 4.5 cm consistent with a partial small bowel obstruction. At this point she is clinically improving, we will advance her to full liquids and see how she does. Subjective Patient feeling well this AM. Had an episode of nausea yesterday after dinner, but feels better this AM and tolerated bfast without issues. + BM documented Physical Exam Physical Exam: awake/alert, no distress Gastrointestinal (Abdomen): Inspection/Auscultation: abdomen not distended Percussion/Palpation: abdomen soft; abdomen nontender Results & Data Vital Signs (Past 12 Hours) Vital Signs Temp Pulse Pulse Resp BP Pulse Ox O2 Del Method 01/01/24 08:51 Room Air 01/01/24 07:51 98.8 F 67 14 135/85 97 Room Air 01/01/24 07:12 98.6 F 62 16 144/81 H 95 Room Air PG Care Time/CCT Total # of Minutes Spent Total Time Spent with Patient: Total time spent is greater than 50% in coordination of care (as documented) at patient's floor/unit and/or counseling patient: Coding Level of Care Code 31112 SUB INP/OBS CARE 1/25MIN Diagnoses Small bowel obstruction K56.609
[2024-01-01] MEDS: ACETAMINOPHEN 325 MG TAB PO PRN (14:18)
[2024-01-01] MEDS: KETOROLAC TROMETHAMINE 15 MG/ML VIAL IV ONE (18:33)
[2024-01-01] MEDS: PROCHLORPERAZINE 5 MG in SYRINGE 4 ML IV ONE (20:08)
[2024-01-01] MEDS: CITALOPRAM 20 MG TAB PO SCH (20:19)
[2024-01-02 06:50] LABS: Hematocrit (blood only) 33.3 % (37.0-47.0); Hemoglobin 11.1 g/dl (12.0-16.0); Mean Corpuscular Hemoglobin 31.6 pg (25.0-34.0); Mean Corpuscular Hgb Conc 33.3 g/dL (32.0-36.0); Mean Corpuscular Volume 94.9 fL (80.0-100.0); Mean Platelet Volume 9.1 fL (9.4-12.4); Platelet Count 231 K/uL (130-400); RDW Coefficient of Variation 12.5 % (11.5-14.5); Red Blood Count 3.51 M/uL (4.20-5.40); White Blood Count 6.94 K/ul (4.8-10.8)
[2024-01-02 07:27] LABS: BUN Creatinine Ratio 15.5 (10-20); Calcium 8.4 mg/dl (8.6-10.3); Creatinine Clr Calc Pharmacy 113.8 ml/min; Est GFR (African American) 117.8 ml/min; Est GFR (Non-African American) 101.6 ml/min; Potassium 4.1 mmol/L (3.5-5.1)
--- NOTE | 2024-01-02 10:16 | Surgery Progress Note ---
Date of Service January 02, 2024 Assessment & Plan (1) Small bowel obstruction: Plan: History of Ale-en-Y gastric bypass, with partial small bowel obstruction. She seems to continue to be improving, however given these intermittent episodes she may have an internal hernia that causes intermittent obstruction. We will see how she does, if her symptoms continue to repeatedly recur, she may need diagnostic laparoscopy. If they occur as an outpatient, and she can follow-up with her bariatric surgeon Continue clear liquids, can trial full liquids this afternoon if she tolerates No surgical intervention indicated at this time Surgery will follow (2) History of gastric bypass: Admission and Anticipated Discharge Date Admission Date: December 31, 2023 Subjective History of Ale-en-Y gastric bypass admitted with partial small bowel obstruction. She tolerated clears and full liquids for lunch, however after dinner of full liquids and andrzej roxana she developed retching. She is improved this morning and is trialing clears. No pain. Physical Exam Constitutional: WD/WN, vitals as above Gastrointestinal (Abdomen): normal bowel sounds, soft, nontender, no hepatosplenomegaly Inspection/Auscultation: + abdominal surgical scar Results & Data Vital Signs (Past 12 Hours) Vital Signs Temp Pulse Pulse Resp BP Pulse Ox O2 Del Method 01/02/24 07:40 36.7 C 60 14 133/81 95 Room Air 01/02/24 07:19 37.1 C 60 16 137/84 96 Room Air PG Care Time/CCT Total # of Minutes Spent Total Time Spent with Patient: Total time spent is greater than 50% in coordination of care (as documented) at patient's floor/unit and/or counseling patient: Coding Level of Care Code 91671 SUB INP/OBS CARE 2/35MIN Diagnoses Small bowel obstruction K56.609 History of gastric bypass Z98.84
--- NOTE | 2024-01-02 11:03 | Hospitalist Progress Note ---
Date of Service January 02, 2024 Assessment & Plan (1) Small bowel obstruction: Plan: Patient with nausea vomiting after a couple hours of eating white chili. She also is having abdominal pain. The symptoms resolved with Zofran, Bentyl, and IV Tylenol. - History of Ale-en-Y gastric bypass surgery approximately 16 years ago. - Abdominal pelvis CT showed distended loops of proximal and mid small bowel containing air-fluid. Small hiatal hernia. Thickening of the distal esophageal wall - Will defer NG tube placement at this time given nausea/vomiting resolved - KUB 12/31 consistent with partial small bowel obstruction. - Patient well-tolerated advancement to full liquids for lunch 12/31, however in the evening developed abdominal pain and had 1 episode of emesis. Diet downgraded to clear liquids at that time. - Continue clear liquid diet for now. If abdominal pain, nausea, or vomiting persist, further downgrade to NPO. - General Surgery on consult - No surgical intervention at this time. > Seems to be improving, however given these intermittent episodes she may have an internal hernia that causes intermittent obstruction. > If her symptoms continue to repeatedly recur, she may need diagnostic laparoscopy. If they occur as an outpatient, then she can follow-up with her bariatric surgeon. - Zofran as needed. IV Tylenol for pain, has an allergy to hydrocodone, will hold off on any as patient's abdominal pain is stable. (2) Vitamin D deficiency: Plan: Takes vitamin D3 and vitamin B12 supplementation at home (3) Depression with anxiety: Plan: Continue bupropion and citalopram (4) Acute hyponatremia: Plan: Sodium of 130 on admission. -Patient did state that she sometimes has short-term memory issues, though this has been worked up by her PCP and had neuropsych testing which was negative. -Continue on LR while NPO -Acute hyponatremia resolved, suspect secondary to decreased PO intake/emesis prior to admission Plan Updated at bedside Diet advanced back to full liquids DVT ppx: SCDs CODE STATUS: Full code Admission and Anticipated Discharge Date Admission Date: December 31, 2023 Supervising Physician Co-Signing Physician Notes Attending Attestation - Chart reviewed, care plan d/w MANUELA Carrillo. I agree w/ the katz components of her documentation. Appreciate general surgery recommendations & assistance. Defer SBO management to them. Labs/vitals remain stable. Saravanan Martinez MD Subjective Patient seen and evaluated at bedside with her . She reports that she is feeling better today. She well tolerated full liquids for lunch yesterday, however in the evening she began experiencing abdominal pain and had 1 episode of emesis. She was downgraded to clear liquids at that time. She was evaluated by general surgery this morning, who advanced her diet back to full liquids for lunch today. Will monitor how it is tolerated. She denies any abdominal pain, bloating, nausea, vomiting currently. No additional complaints or concerns at t his time. Physical Exam Physical Exam: General: No acute distress, nondiaphoretic, well-developed, well-nourished. Skin: The skin was without rashes, erythema, edema, or bruising. Cardiac: Regular rate and rhythm without murmurs gallops or rubs. Pulm: Clear to auscultation bilaterally without wheezes, rales or rhonchi. No respiratory distress. 98% on room air. Abdominal: Soft, nontender, nondistended. Bowel sounds present. Neuro: A&O x3. No focal neurological deficits. Results & Data Results & Data Vital Signs (Past 12 Hours) Vital Signs Temp Pulse Pulse Resp BP Pulse Ox O2 Del Method 01/02/24 07:40 98.1 F 60 14 133/81 95 Room Air 01/02/24 07:19 98.8 F 60 16 137/84 96 Room Air Laboratory Results Reviewed CBC Reviewed BMP PG Care Time/CCT Total # of Minutes Spent Total Time Spent with Patient: Total time spent is greater than 50% in coordination of care (as documented) at patient's floor/unit and/or counseling patient: Coding Level of Care Code 73333 SUB INP/OBS CARE 2/35MIN Diagnoses Small bowel obstruction K56.609 Vitamin D deficiency E55.9 Depression with anxiety F41.8 Acute hyponatremia E87.1
[2024-01-03 07:04] LABS: Hemoglobin 11.6 g/dl (12.0-16.0); Mean Corpuscular Hemoglobin 31.4 pg (25.0-34.0); Mean Corpuscular Hgb Conc 33.1 g/dL (32.0-36.0); Mean Corpuscular Volume 94.6 fL (80.0-100.0); Mean Platelet Volume 9.4 fL (9.4-12.4); Platelet Count 255 K/uL (130-400); RDW Coefficient of Variation 12.4 % (11.5-14.5); RDW Standard Deviation 43.4 fL (36.4-46.3); White Blood Count 6.52 K/ul (4.8-10.8)
[2024-01-03 07:27] LABS: BUN Creatinine Ratio 9.2 (10-20); Calcium 8.6 mg/dl (8.6-10.3); Creatinine Clr Calc Pharmacy 101.6 ml/min; Est GFR (African American) 113.4 ml/min; Est GFR (Non-African American) 97.9 ml/min; Potassium 3.7 mmol/L (3.5-5.1)
--- NOTE | 2024-01-03 10:57 | Surgery Progress Note ---
Date of Service January 03, 2024 Assessment & Plan (1) Small bowel obstruction: Plan: History of Ale-en-Y gastric bypass, with partial small bowel obstruction. She seems to continue to be improving, however given these intermittent episodes she may have an internal hernia that causes intermittent obstruction. We will see how she does, if her symptoms continue to repeatedly recur, she may need diagnostic laparoscopy. If they occur as an outpatient, and she can follow-up with her bariatric surgeon Advance to low fiber diet No surgical intervention indicated at this time Surgery will follow (2) History of gastric bypass: Admission and Anticipated Discharge Date Admission Date: December 31, 2023 Subjective History of Ale-en-Y gastric bypass admitted with partial small bowel obstruction. She tolerated full liquids yesterday, no abdominal cramping, continues to have flatus and bowel movements. Physical Exam Constitutional: WD/WN, vitals as above Respiratory: normal respiratory effort, lungs clear to auscultation Cardiovascular: RRR, no murmur, no edema Gastrointestinal (Abdomen): normal bowel sounds, soft, nontender, no hepatosplenomegaly Inspection/Auscultation: + abdominal surgical scar Results & Data Vital Signs (Past 12 Hours) Vital Signs Temp Pulse Resp BP Pulse Ox O2 Del Method 01/03/24 08:07 Room Air 01/03/24 07:58 37.4 C 74 18 146/85 H 97 Room Air PG Care Time/CCT Total # of Minutes Spent Total Time Spent with Patient: Total time spent is greater than 50% in coordination of care (as documented) at patient's floor/unit and/or counseling patient: Coding Level of Care Code 18184 SUB INP/OBS CARE 2/35MIN Diagnoses Small bowel obstruction K56.609 History of gastric bypass Z98.84
--- NOTE | 2024-01-03 11:52 | Hospitalist Progress Note ---
Date of Service January 03, 2024 Assessment & Plan (1) Small bowel obstruction: Plan: Patient with nausea vomiting after a couple hours of eating white chili. She also is having abdominal pain. The symptoms resolved with Zofran, Bentyl, and IV Tylenol. - History of Ale-en-Y gastric bypass surgery approximately 16 years ago. - Abdominal pelvis CT showed distended loops of proximal and mid small bowel containing air-fluid. Small hiatal hernia. Thickening of the distal esophageal wall - Will defer NG tube placement at this time given nausea/vomiting resolved - KUB 12/31 consistent with partial small bowel obstruction. - Patient well-tolerated advancement to full liquids for lunch 12/31, however in the evening developed abdominal pain and had 1 episode of emesis. Diet downgraded to clear liquids at that time. - Advance to low fiber diet 01/02. If abdominal pain, nausea, or vomiting occurs, downgrade to liquids. > Continue inpatient hospitalization overnight for further monitoring given lack of tolerance for diet advancement previously during this hospital stay. > If low fiber diet is well-tolerated for lunch and dinner, patient can be discharged home 01/03. - Continues to have flatus and bowel movements (last BM 01/01). - General Surgery on consult - No surgical intervention at this time. > Seems to be improving, however given these intermittent episodes she may have an internal hernia that causes intermittent obstruction. > If her symptoms continue to repeatedly recur, she may need diagnostic laparoscopy. If they occur as an outpatient, then she can follow-up with her bariatric surgeon. - Zofran as needed. IV Tylenol for pain, has an allergy to hydrocodone, will hold off on any as patient's abdominal pain is stable. (2) Vitamin D deficiency: Plan: Takes vitamin D3 and vitamin B12 supplementation at home (3) Depression with anxiety: Plan: Continue bupropion and citalopram (4) Acute hyponatremia: Plan: Sodium of 130 on admission. -Patient did state that she sometimes has short-term memory issues, though this has been worked up by her PCP and had neuropsych testing which was negative. -Continue on LR while NPO -Acute hyponatremia resolved, suspect secondary to decreased PO intake/emesis prior to admission Plan Diet advanced back to low fiber DVT ppx: SCDs CODE STATUS: Full code Admission and Anticipated Discharge Date Admission Date: December 31, 2023 Supervising Physician Co-Signing Physician Notes Attending Attestation - Chart reviewed, care plan d/w MANUELA Carrillo. I agree w/ the katz components of her documentation. Diet advanced to low fiber. Discharge hopefully tomorrow. Saravanan Martinez MD Subjective Patient seen and evaluated at bedside. She reports that she is feeling well. She well tolerated the full liquid diet yesterday. She did have a bowel movement yesterday and continues to pass gas. Denies any abdominal pain, nausea, bloating at this time. She does note that she had some nausea last evening, which was alleviated with Zofran. Her diet has been advanced to low fiber for lunch today. We discussed even if this is well-tolerated, continue inpatient stay overnight to monitor given her lack of tolerance with diet advancement previously and this hospital stay. She is agreeable to this. If diet is well-tolerated for lunch and dinner tonight, she can be discharged t omorrow morning. No additional complaints or concerns at this time. Physical Exam Physical Exam: General: No acute distress, nondiaphoretic, well-developed, well-nourished. Skin: The skin was without rashes, erythema, edema, or bruising. Cardiac: Regular rate and rhythm without murmurs gallops or rubs. Pulm: Clear to auscultation bilaterally without wheezes, rales or rhonchi. No respiratory distress. 97% on room air. Abdominal: Soft, nontender, nondistended. Bowel sounds present. Neuro: A&O x3. No focal neurological deficits. Results & Data Results & Data Vital Signs (Past 12 Hours) Vital Signs Temp Pulse Resp BP Pulse Ox O2 Del Method 01/03/24 08:07 Room Air 01/03/24 07:58 99.3 F 74 18 146/85 H 97 Room Air Laboratory Results Reviewed CBC Reviewed BMP PG Care Time/CCT Total # of Minutes Spent Total Time Spent with Patient: Total time spent is greater than 50% in coordination of care (as documented) at patient's floor/unit and/or counseling patient: Coding Level of Care Code 10977 SUB INP/OBS CARE 2/35MIN Diagnoses Small bowel obstruction K56.609 Vitamin D deficiency E55.9 Depression with anxiety F41.8 Acute hyponatremia E87.1
[2024-01-04 05:48] LABS: Hematocrit (blood only) 35.4 % (37.0-47.0); Mean Corpuscular Hemoglobin 32.3 pg (25.0-34.0); Mean Corpuscular Hgb Conc 33.9 g/dL (32.0-36.0); Mean Corpuscular Volume 95.2 fL (80.0-100.0); Mean Platelet Volume 9.1 fL (9.4-12.4); Platelet Count 259 K/uL (130-400); RDW Coefficient of Variation 12.5 % (11.5-14.5); RDW Standard Deviation 43.7 fL (36.4-46.3); Red Blood Count 3.72 M/uL (4.20-5.40); White Blood Count 7.67 K/ul (4.8-10.8)
[2024-01-04 06:02] LABS: BUN Creatinine Ratio 14.5 (10-20); Calcium 8.8 mg/dl (8.6-10.3); Creatinine Clr Calc Pharmacy 86.9 ml/min; Est GFR (African American) 100.2 ml/min; Est GFR (Non-African American) 86.5 ml/min; Potassium 3.9 mmol/L (3.5-5.1)
[2024-01-04 07:43] VITALS: BP 159/98; PULSE 72; RESP 16; TEMP 99.3; O2SAT 95
--- NOTE | 2024-01-04 08:38 | Hospitalist Progress Note ---
Date of Service January 04, 2024 Assessment & Plan (1) Small bowel obstruction: Plan: Patient with nausea vomiting after a couple hours of eating white chili. She also is having abdominal pain. The symptoms resolved with Zofran, Bentyl, and IV Tylenol. - History of Ale-en-Y gastric bypass surgery approximately 16 years ago. - Abdominal pelvis CT showed distended loops of proximal and mid small bowel containing air-fluid. Small hiatal hernia. Thickening of the distal esophageal wall - Will defer NG tube placement at this time given nausea/vomiting resolved - KUB 12/31 consistent with partial small bowel obstruction. - Patient well-tolerated advancement to full liquids for lunch 12/31, however in the evening developed abdominal pain and had 1 episode of emesis. Diet downgraded to clear liquids at that time. - Advance to low fiber diet 01/02. If abdominal pain, nausea, or vomiting occurs, downgrade to liquids. > Continue inpatient hospitalization overnight for further monitoring given lack of tolerance for diet advancement previously during this hospital stay. > If low fiber diet is well-tolerated for lunch and dinner, patient can be discharged home 01/03. - Continues to have flatus and bowel movements (last BM 01/01). - General Surgery on consult - No surgical intervention at this time. > Seems to be improving, however given these intermittent episodes she may have an internal hernia that causes intermittent obstruction. > If her symptoms continue to repeatedly recur, she may need diagnostic laparoscopy. If they occur as an outpatient, then she can follow-up with her bariatric surgeon. - Zofran as needed. IV Tylenol for pain, has an allergy to hydrocodone, will hold off on any as patient's abdominal pain is stable. EValuated this morning, washed up in the bathroom. Had some lower cramping last night but dissappated. Continues passing gas, ambulating. Seen by general surgery, discussed possible dc today and low fiber diet. She reports has been having blueberries/strawberries and increased salads-- to hold off for now x 2 weeks, then advance as tolerated. Will discuss w/ supervising provider and possible dc if no issues after lunch with outpatient GI follow up. She reports hasn't had issues w/ gastric bypass in ~17 yrs and was to have c-scope in Dec which was cancelled and she doesn't rememebr who with. Will contact navigator to assist with arranging but discussed possible dc after lunch if no issues. (2) Vitamin D deficiency: Plan: Takes vitamin D3 and vitamin B12 supplementation at home (3) Depression with anxiety: Plan: Continue bupropion and citalopram (4) Acute hyponatremia: Plan: Sodium of 130 on admission. -Patient did state that she sometimes has short-term memory issues, though this has been worked up by her PCP and had neuropsych testing which was negative. -Continue on LR while NPO -Acute hyponatremia resolved, suspect secondary to decreased PO intake/emesis prior to admission Plan Diet advanced back to low fiber DVT ppx: SCDs CODE STATUS: Full code Admission and Anticipated Discharge Date Admission Date: December 31, 2023 Subjective EValuated this morning, washed up in the bathroom. Had some lower cramping last night but dissappated. Continues passing gas, ambulating. Seen by general surgery, discussed possible dc today and low fiber diet. She reports has been having blueberries/strawberries and increased salads-- to hold off for now x 2 weeks, then advance as tolerated. Will discuss w/ supervising provider and possible dc if no issues after lunch with outpatient GI follow up. She reports hasn't had issues w/ gastric bypass in ~17 yrs and was to have c-scope in Dec which was cancelled and she doesn't rememebr who with. Will contact navigator to assist with arranging but discussed possible dc after lunch if no issues. Results & Data Results & Data Vital Signs (Past 12 Hours) Vital Signs Temp Pulse Resp BP BP Pulse Ox O2 Del Method 01/04/24 07:43 37.4 C 72 16 159/98 H 95 Room Air 01/03/24 21:50 37.0 C 58 L 18 149/91 H 98 Room Air PG Care Time/CCT Total # of Minutes Spent Total Time Spent with Patient: Total time spent is greater than 50% in coordination of care (as documented) at patient's floor/unit and/or counseling patient: Coding Diagnoses Small bowel obstruction K56.609 Vitamin D deficiency E55.9 Depression with anxiety F41.8 Acute hyponatremia E87.1
--- NOTE | 2024-01-04 08:57 | Surgery Progress Note ---
Date of Service January 04, 2024 Assessment & Plan (1) Small bowel obstruction: Plan: pt reports feeling full/bloating tolerating low fiber no n/v +flatus , has had 2 BMs while here but none for past 2 days encouraged ambulation continue low fiber diet should f/u o/p with a bariatric surgeon on d/c general surgery will sign off at this time, stable for d/c from our standpoint call with questions /concerns Admission and Anticipated Discharge Date Admission Date: December 31, 2023 Supervising Physician Co-Signing Physician Notes this case was discussed with the surgical [employer]AM[employer]ANT [employer]RO[employer], I agree with this plan Subjective pt reports some bloating but no n/v and tolerating low fiber passing flatus no BM Review of Systems Gastrointestinal: + bloating; no abdominal pain, no nausea and no vomiting Physical Exam Constitutional: cooperative and comfortable; no acute distress Respiratory: normal respiratory effort and able to speak in complete sentences; no respiratory distress Gastrointestinal (Abdomen): Inspection/Auscultation: abdomen not distended Percussion/Palpation: abdomen soft; abdomen nontender and no guarding Results & Data Vital Signs (Past 12 Hours) Vital Signs Temp Pulse Resp BP BP Pulse Ox O2 Del Method 01/04/24 07:43 99.3 F 72 16 159/98 H 95 Room Air 01/03/24 21:50 98.6 F 58 L 18 149/91 H 98 Room Air Results CBC w Diff Results: RBC 3.72 M/uL (4.20-5.40) L 01/04/24 WBC 7.67 K/ul (4.8-10.8) 01/04/24 Hgb 12.0 g/dl (12.0-16.0) 01/04/24 Hct 35.4 % (37.0-47.0) L 01/04/24 MCV 95.2 fL (80.0-100.0) 01/04/24 MCH 32.3 pg (25.0-34.0) 01/04/24 MCHC 33.9 g/dL (32.0-36.0) 01/04/24 RDW Standard Deviation 43.7 fL (36.4-46.3) 01/04/24 RDW Coefficient of Variation 12.5 % (11.5-14.5) 01/04/24 Plt Count 259 K/uL (130-400) 01/04/24 MPV 9.1 fL (9.4-12.4) L 01/04/24 Neutrophils (%) (Auto) 67.8 % 01/01/24 Lymphocytes (%) (Auto) 22.4 % 01/01/24 Monocytes # (Auto) 0.41 K/uL (0.11-0.59) 01/01/24 Eosinophils # (Auto) 0.16 K/uL (0.00-0.50) 01/01/24 Immature Granulocyte % (Auto) 0.5 % 01/01/24 Neutrophils # (Auto) 4.26 K/uL (1.40-6.50) 01/01/24 Lymphocytes # (Auto) 1.41 K/uL (1.20-3.40) 01/01/24 Monocytes # (Auto) 0.41 K/uL (0.11-0.59) 01/01/24 Eosinophils # (Auto) 0.16 K/uL (0.00-0.50) 01/01/24 Basophils # (Auto) 0.02 K/uL (0.00-0.20) 01/01/24 Immature Granulocyte # (Auto) 0.03 K/uL (0.01-0.20) 4 PG Care Time/CCT Total # of Minutes Spent Total Time Spent with Patient: Total time spent is greater than 50% in coordination of care (as documented) at patient's floor/unit and/or counseling patient: Coding Level of Care Code 25180 SUB INP/OBS CARE 05/13MIN Diagnoses Small bowel obstruction K56.609
--- NOTE | 2024-01-04 11:00 | XRay Report ---
KUB HISTORY: Small bowel obstruction. Follow-up. COMPARISON: KUB 01/01/2024. FINDINGS: Persistent dilatation of the small bowel within the midabdomen measuring up to 5 cm in diam eter. This is similar to the prior study. [id number] fecal retention is noted. Suture material within the left upper quadrant again noted. No renal calculi. No ureteral calculi. Calcifications in the deep pelvis likely represent phleboliths. No pneumoperitoneum or pneumatosis. IMPRESSION: No significant change in the dilated loops of small bowel consistent with a persistent small bowel ob struction. ACT 112: Negative or not required by law. Electronically signed by: Jacky Walter M.D. 01/04/2024 10:59 AM
--- NOTE | 2024-01-04 11:19 | Discharge Summary ---
Discharge Summary Date of Service January 04, 2024 Principal Dx & Hospital Course #1 = Principal Diagnosis (1) Small bowel obstruction: Patient with nausea vomiting after a couple hours of eating white chili and thought maybe she had food poisoning and improvement in abdominal discomfort with vomiting. History of Ale-en-Y gastric bypass surgery approximately 16-17 yrs ago at [facility] (reports has not required any follow up) Sx resolved with Zofran, Bentyl, and IV Tylenol on admission CTAP abdomen/pelvis obtained and noted distended loops of proximal and mid small bowel containing air-fluid. Small hiatal hernia. Thickening of the distal esophageal wall Given n/v resolved at time of admission, NGT deferred KUB 12/31 consistent with partial SBO General surgery consulted, conservative treatment IVF, bowel rest, pain control and patient advanced to low fiber diet 01/02 with tolerance and +BS throughout however no BM since 01/01 however did discuss given KUB appears w/ distended loops but again patient w/ good bowel sounds/no pain and able to discharge on low fiber diet. Given intermittent episodes could have internal hernia that causes intermittent obstruction and recs to have outpt f/u with bariatric surgeon Patient was already prior liz for c-scope with Dr Puga this month which was cancelled and rec'd to have her re-schedule and can have outpt ref to bariatric in follow up (or sooner if navigator able to arrange at discharge) Patient had been eating lots of blueberries, strawberries, salads recently as well and was encouraged to continue low fiber diet x 2 weeks, ambulation and OTC softener to prevent issues. Discussed s/sx to return to ER sooner if needed (2) Vitamin D deficiency: Vitamin D3 and vitamin B12 supplementation at home (3) Depression with anxiety: Continued bupropion and citalopram (4) Acute hyponatremia: Sodium of 130 on admission, LR continued and hyponatremia resolved Apparently w/ short term memory issues -- consideration to check TSH in f/u if not obtained recently but apparently has been worked up by PCP and neuropsych testing whichw as negative Notes For Next Care Provider Consider outpt ref to bariatric surgeon if needed for intermittent/possible internal hernia Consideration for TSH check if not done recently Ensure re-scheduled for c-scope Medication Changes From Visit None Admission HPI Per Admitting Provider Patient is a 58-year-old with past medical history of depression, obesity, iron deficiency, and vitamin D deficiency, and history of gastric bypass 14 years ago who presents to the hospital with abdominal pain and possible small bowel obstruction. Patient was eating white chili for dinner and started to have diffuse abdominal pain with nausea and vomiting. This started to occur around 730 p.m. Patient then took some Tums which helped slightly. Her last bowel movement was formed at 10:30 PM. Denies any hematochezia or hematemesis. States that this was a large formed bowel movement. Denies any diarrhea. Denies any fevers, chills, chest pain, dysuria. Patient does state that she has some trouble remembering some episodes. She has had some memory issues in the past that has been worked up by her PCP with neuropsych testing being negative. Admission Exam Per Admitting Provider Constitutional: well-appearing, no acute distress HEENT: NCAT, no conjunctival injection CV: regular rhythm, no murmur appreciated, extremities well-perfused, no LE edema Resp: CTABL, no wheezes/rales/rhonchi appreciated, no increased work of breathing GI: soft, nondistended, diffuse abdominal tenderness, BS normoactive MSK: no gross deformities appreciated Skin: warm, dry, no rash appreciated Neuro: alert, oriented, no focal neurologic deficit appreciated Discharge Exam General: 58yo female sitting up in chair HEENT: head atraumatic, normocephalic, mmm, trachea midline Resp: even/unlabored, no w/c/r, on room air CV: RRR, no significant m/r/g, no pitting edema GI: +BS throughout (maybe SLIGHTLY hypoactive LUQ) but soft, NONTENDER : no javed MSK/Neuro: nonfocal, no slurred speech/confusion, answering questions appropriately Psych: AOx3, cooperative with exam Discharge Plan Discharge Items Patient Disposition: Home - Self-Care Reason For Visit: ABD PAIN, POSS SBO Discharge Diagnosis: Small bowel obstruction Condition on Discharge: Good Goals: You have been hospitalized for an acute medical problem. During your stay at [facility], we have made an effort to correct the problem that brought you to the hospital while keeping you as comfortable as possible. Medications were used to bring your condition under control and your discharge instructions will include directions for any medications you should take after leaving the hospital. Please make sure you see your Primary Care Provider as part of your follow up plan. Activity: As commented below Non-emergency contact: Primary Care Provider, Specialist and Soil Expert Call non-emergency contact if: you have any medication questions, your symptoms worsen, your pain is concerning for you, you have a fever and your temperature is above 101.5 Follow-up/Referrals: Arik Puga DO [Physician] - Sanjeev Weinberg MD [Primary Care Provider] - 01/13/24 2:00 pm Diet: Low Fiber Addtl Attending Provider Instructions: You have been hospitalized for abdominal pain and found to have evidence for small bowel obstruction. General surgery was consulted and we were able to manage conservatively with bowel rest and slow advancement to low fiber diet and should be continued on low fiber diet along with over the counter once daily stool softener/laxative like miralax to help keep you regular. You should have outpatient follow up with GI for colonoscopy and we are working on sending information for referral for outpatient bariatric follow up but may be needing to be completed by GI/primary care if not able to arrange prior to discharge for any ongoing issues regarding prior gastric bypass and hiatal hernia. Please avoid high fiber foods like fruits/veggies/salads for now and then can advance as tolerated once bowels back to baseline. Please follow up with primary care in the next 7-10 days to monitor your progress. Please return to the ER with any increased abdominal pain, fever/chills, inability to keep up with oral hydration or for any other symptoms concerning for you. It has been a pleasure being a part of the medical team providing for you while you have been in the hospital. Take care! Pending Studies at Discharge: No Stand-Alone Forms: My [facility] EATON, Smoking Cessation Medications and DC Order Prescriptions: Continued cholecalciferol (vitamin D3) 1,250 mcg (50,000 unit) capsule 50,000 unit PO WK Qty: 12 3RF bupropion HCl 150 mg tablet sustained-release 12 hr 150 mg PO BID Qty: 180 3RF citalopram 20 mg tablet 20 mg PO HS Qty: 90 3RF cyanocobalamin (vitamin B-12) [Vitamin B-12] 1,000 mcg Tablet 1,000 mcg PO QAM Discharge Orders: Discharge Order (Routine); Ordered 09/17/24 Ordered By: Marilyn Hoover/Other Patient Handouts: Low-Fiber Diet Admission Data Admit Date/Time: 12/31/23 04:36 Attending Provider: Stella Lau Admit Provider: Charlie Scott Primary Care Provider: Sanjeev Weinberg Other Providers: Arian Coleman; David Lane; Garry Richter; Michel Mancilla; Dain Paredes; Kamala Rajan; Yandel Rod; Jer Dey; Princess Jason; Eladio Coelho; Antonio Muñoz; Tejinder Hennessy Other Interventions: Discharge Summary Assessment (RN) Last Done: 01/04/24 12:18 Hospital Stay Data Consultations 12/31/23 03:54 ED Decision to Admit Stat 12/31/23 05:54 Consult General Surgery Routine Diagnostic Imagining Performed Abdomen/Pelvis CT 12/31/23 01:35 Exam(s): CT ABDOMEN + PELVIS With Contrast IV Amt: 93 MLOPTIRAY 320 EXAM: CT Abdomen and Pelvis With Intravenous Contrast CLINICAL HISTORY: Reason for exam: mid abd pain. TECHNIQUE: Axial computed tomography images of the abdomen and pelvis with intravenous contrast. CTDI is 27.28 mGy and DLP is 1366.12 mGy-cm. Automated exposure control was utilized for the study. A dose lowering technique was utilized adhering to the principles of ALARA. CONTRAST: Patient received 93 ML OPTIRAY 320 of IV contrast COMPARISON: No relevant prior studies available. FINDINGS: Lung bases: No consolidation. There are calcifications noted the lung bases compatible with old granulomatous disease. The heart is not enlarged but contains coronary artery calcifications. ABDOMEN: Liver: No mass. Gallbladder and bile ducts: No calcified stones. No ductal dilation. Pancreas: No mass. No ductal dilation. Spleen: No splenomegaly. Adrenals: No mass. Kidneys and ureters: No solid mass. No hydronephrosis. Stomach and bowel: There are postoperative changes involving the bowel. There is thickening of the distal esophageal wall. There is a small hiatal hernia. Stomach is distended containing fluid. There are distended loops of proximal and mid small bowel containing air and fluid. There is air and stool noted in the colon.. PELVIS: Appendix: Unremarkable CT scan appearance noted the appendix.. Bladder: No calculi are noted within the bladder.. Reproductive: Unremarkable as visualized. ABDOMEN and PELVIS: Intraperitoneal space: No free air. No significant fluid collection. Bones/joints: There are degenerative changes in the spine.. Soft tissues: Unremarkable. Vasculature: No abdominal aortic aneurysm. Lymph nodes: No enlarged lymph nodes. IMPRESSION: Stomach is distended containing fluid. There are distended loops of proximal and mid small bowel containing air and fluid. There is a small hiatal hernia. There is thickening of the distal esophageal wall. See discussion above. Electronically signed by: Justen Aly MD 12/31/23 03:47 AM KUB X-Ray 01/01/24 06:00 XR KUB/Abdomen 1 view CLINICAL HISTORY: eval bowel/gas pattern TECHNIQUE: 1 view of the abdomen was obtained. Comparison: Comparison is made to CT abdomen pelvis 12/31/2023 FINDINGS: Lung bases are unremarkable. Degenerative changes are seen in the visualized skeleton. Gas dilated loops of small bowel measure up to 50 mm. A moderate amount of stool is noted within the large bowel. IMPRESSION: Findings compatible with small bowel obstruction versus ileus. ACT 112: Negative or not required by law. Electronically signed by: Kota Hanna M.D. 01/01/2024 10:40 AM KUB X-Ray 01/04/24 09:02 KUB HISTORY: Small bowel obstruction. Follow-up. COMPARISON: KUB 01/01/2024. FINDINGS: Persistent dilatation of the small bowel within the midabdomen measuring up to 5 cm in diameter. This is similar to the prior study. [id number] fecal retention is noted. Suture material within the left upper quadrant again noted. No renal calculi. No ureteral calculi. Calcifications in the deep pelvis likely represent phleboliths. No pneumoperitoneum or pneumatosis. IMPRESSION: No significant change in the dilated loops of small bowel consistent with a persistent small bowel obstruction. ACT 112: Negative or not required by law. Electronically signed by: Jacky Walter M.D. 01/04/2024 10:59 AM Discharge Instructions Given to Patient (Per Discharging Provider) You have been hospitalized for abdominal pain and found to have evidence for small bowel obstruction. General surgery was consulted and we were able to manage conservatively with bowel rest and slow advancement to low fiber diet and should be continued on low fiber diet along with over the counter once daily stool softener/laxative like miralax to help keep you regular. You should have outpatient follow up with GI for colonoscopy and we are working on sending information for referral for outpatient bariatric follow up but may be needing to be completed by GI/primary care if not able to arrange prior to discharge for any ongoing issues regarding prior gastric bypass and hiatal hernia. Please avoid high fiber foods like fruits/veggies/salads for now and then can advance as tolerated once bowels back to baseline. Please follow up with primary care in the next 7-10 days to monitor your progress. Please return to the ER with any increased abdominal pain, fever/chills, inability to keep up with oral hydration or for any other symptoms concerning for you. It has been a pleasure being a part of the medical team providing for you while you have been in the hospital. Take care! Total Time Total Time Spent Total Time Spent (In Minutes): 40 Coding Level of Care Code 94640 INP/OBS DISCH >30 MIN Diagnoses Small bowel obstruction K56.609 Vitamin D deficiency E55.9 Depression with anxiety F41.8 Acute hyponatremia E87.1
== END 2024-01-04 14:14 | disposition home or self-care (01) | DRG 389 ==
LOC: ED 00:50 → INTOOBSV 04:36 → SUATTDRO 04:36 → 3E 04:36

== ENCOUNTER 2024-06-09 08:06 | Observation (INO) ==
--- NOTE | 2024-05-09 14:03 | PAT Medication Instructions ---
Medication Instructions Date of Service May 09, 2024 Home Medications Medication Instructions Recorded citalopram 20 mg tablet 20 mg PO HS #90 tabs 02/09/24 bupropion HCl 150 mg tablet,12 hr 150 mg PO BID #180 ea 04/13/24 sustained-release acetaminophen 325 mg tablet 975 mg PO Q6H PRN Pain thiamine HCl (vitamin B1) 50 mg tablet 100 mg PO QAM citalopram 20 mg tablet 20 mg PO HS phytonadione (vitamin K1) 100 mcg tablet 100 mcg PO QAM vitamin A palmitate 3,000 mcg (10,000 unit) tablet 3,000 mcg PO QAM zinc 10 mg tablet 10 mg PO QAM bupropion HCl 150 mg tablet,12 hr sustained-release 150 mg PO BID ascorbic acid (vitamin C) 1,000 mg tablet (Vitamin C) 1 g PO DAILY PRN Cold Symptoms calcium 600 mg capsule 600 mg PO QAM cholecalciferol (vitamin D3) 1,250 mcg (50,000 unit) tablet 1,250 mcg PO Q7D cyanocobalamin (vitamin B-12) 1,000 mcg tablet (Vitamin B-12) 1,000 mcg PO Q3D ferrous sulfate 325 mg (65 mg iron) tablet (Iron (ferrous sulfate)) 325 mg PO QAM hydroxychloroquine 200 mg tablet 200 mg PO BID levomefolate calcium 15 mg tablet 15 mg PO QAM magnesium 1 tab PO QAM ASK your prescriber and surgeon hydroxychloroquine 200 mg tablet 200 mg PO BID STOP taking 2 weeks before surgery (or as soon as possible if surgery is within 2 weeks) phytonadione (vitamin K1) 100 mcg tablet 100 mcg PO QAM DO NOT take the morning of surgery thiamine HCl (vitamin B1) 50 mg tablet 100 mg PO QAM vitamin A palmitate 3,000 mcg (10,000 unit) tablet 3,000 mcg PO QAM zinc 10 mg tablet 10 mg PO QAM ascorbic acid (vitamin C) 1,000 mg tablet (Vitamin C) 1 g PO DAILY PRN Cold Symptoms calcium 600 mg capsule 600 mg PO QAM cholecalciferol (vitamin D3) 1,250 mcg (50,000 unit) tablet 1,250 mcg PO Q7D cyanocobalamin (vitamin B-12) 1,000 mcg tablet (Vitamin B-12) 1,000 mcg PO Q3D ferrous sulfate 325 mg (65 mg iron) tablet (Iron (ferrous sulfate)) 325 mg PO QAM levomefolate calcium 15 mg tablet 15 mg PO QAM magnesium 1 tab PO QAM Take morning of surgery With a small sip of water, OTHERWISE NOTHING TO EAT OR DRINK AFTER MIDNIGHT: acetaminophen 325 mg tablet 975 mg PO Q6H PRN Pain (if needed) bupropion HCl 150 mg tablet,12 hr sustained-release 150 mg PO BID Take evening before surgery acetaminophen 325 mg tablet 975 mg PO Q6H PRN Pain (if needed) citalopram 20 mg tablet 20 mg PO HS bupropion HCl 150 mg tablet,12 hr sustained-release 150 mg PO BID ascorbic acid (vitamin C) 1,000 mg tablet (Vitamin C) 1 g PO DAILY PRN Cold Symptoms (if needed) Other Notes If you have any questions please call us at [phone] or [phone] or [phone] or [phone]
--- NOTE | 2024-05-15 08:34 | Anesthesiology Consultation ---
Date of Service May 15, 2024 Assessment & Plan (1) Encounter for pre-operative examination: - Infectious disease screening: Per assessment on 05/15/24- No known recent infectious disease contacts or current infectious disease symptoms. - Outpatient joint assessment: Pt currently scheduled for inpatient pathway. If surgeon requests review for outpatient joint pathway, patient is not recommended candidate for outpatient joint program from anesthesia standpoint based on available information. Chart Review Chart Review: Acceptable Risk for Surgery and Patient seen in Pre Admission Testing Teaching & Discussion Pre-Anesthesia Teaching/Discussion Notes: Instructed NPO after midnight before surgery,except medications with 15 cc of water. Medication instructions provided according to the PAT guidelines. History Surgery Operation Date: 06/09/24 08:50 Proposed Procedures p Right Total Knee Revision - Brett Nelson MD Height/Weight Height: 5 ft 2 in Weight: 81.9 kg Allergies Allergy/AdvReac Type Severity Reaction Status Date / Time hydrocodone Allergy Mild Itching Verified 05/10/24 12:39 Medications Home Medications Medication Instructions Recorded Confirmed Last Taken acetaminophen 325 mg tablet 975 mg PO Q6H PRN Pain 01/17/24 05/01/24 Unknown thiamine HCl (vitamin B1) 50 mg 100 mg PO QAM 01/17/24 05/01/24 Unknown tablet phytonadione (vitamin K1) 100 mcg 100 mcg PO QAM 02/09/24 05/01/24 Unknown tablet vitamin A palmitate 3,000 mcg 3,000 mcg PO QAM 02/09/24 05/01/24 Unknown (10,000 unit) tablet zinc 10 mg tablet 10 mg PO QAM 03/13/24 05/01/24 Unknown bupropion HCl 150 mg tablet,12 hr 150 mg PO BID #180 ea 04/13/24 05/01/24 Unknown sustained-release ascorbic acid (vitamin C) 1,000 mg 1 g PO DAILY PRN Cold Symptoms 05/01/24 05/01/24 Unknown tablet (Vitamin C) calcium 600 mg capsule 600 mg PO QAM 05/01/24 05/01/24 Unknown cholecalciferol (vitamin D3) 1,250 1,250 mcg PO Q7D 05/01/24 05/01/24 Unknown mcg (50,000 unit) tablet cyanocobalamin (vitamin B-12) 1,000 mcg PO Q3D 05/01/24 05/01/24 Unknown 1,000 mcg tablet (Vitamin B-12) ferrous sulfate 325 mg (65 mg 325 mg PO QAM 05/01/24 05/01/24 Unknown iron) tablet (Iron (ferrous sulfate)) hydroxychloroquine 200 mg tablet 200 mg PO BID 05/01/24 05/01/24 Unknown levomefolate calcium 15 mg tablet 15 mg PO QAM 05/01/24 05/01/24 Unknown magnesium 1 tab PO QAM 05/01/24 05/01/24 Unknown duloxetine 30 mg capsule,delayed 30 mg PO DAILY 05/15/24 05/15/24 Unknown release (Cymbalta) Past Medical History Medical History Anxiety Chronic knee pain after total replacement of both knee joints Depression Fibromyalgia History of COVID-19 2019, no residual symptoms History of reactive airway disease No issues x years, no recent issues or inhalers Hx of colonic polyps Hx of hyperlipidemia Iron deficiency anemia Obesity, Class II, BMI 35-39.9 Osteoarthritis Restless leg syndrome Rheumatoid arthritis Recently started Plaquenil Sleep apnea Possible remote hx, "believe to have it prior to gastric bypass, after testing felt her issues were from restless legs, never had to have a device" Small bowel obstruction Hx (12/2023) Exercise / Class Metabolic Activity III < 4 Walking/Shop/Light housework Past Family History Family History Grandmother (Maternal) Family hx of colon cancer Colorectal cancer Mother Atrial fibrillation Father COPD (chronic obstructive pulmonary disease) Sister Obesity Brother Arthritis Grandmother (Maternal) Colorectal cancer Other No family history of adverse response to anesthesia Denies family history of Ovarian cancer Breast cancer Past Surgical History Surgical History History of arthroplasty of finger of left hand left thumb History of arthroplasty of finger of right hand thumb joint History of arthroscopy of right knee History of esophagogastroduodenoscopy (EGD) History of tooth extraction History of total left knee replacement (TKR) History of total right knee replacement (TKR) History of trigger finger left hand middle finger History of wisdom tooth extraction Hx of colonoscopy Hx of gastric bypass 2007, Ale-en-Y bypass S/P small bowel resection + umbilical hernia repair, [facility] (12/2023) Past Anesthesia History No Family Hx of Anesthesia Complications and Other (Awareness with previous knee replacements) History of PONV No Hx of PONV and No Hx of Motion Sickness Social History Smoking Status: Never smoker Do You Dip or Chew Tobacco: No Hx Alcohol Use: Yes Alcohol type: beer, wine and hard liquor alcohol intake frequency: holidays/special occasions only Hx Substance Use: No substance use type: does not use Review of Systems Patient denies chest pain, shortness of breath, fever, chills, cough, wheezing, palpitations. Physical Exam Vital Signs BP 106/62 P 81 TEMP 98.8 SP02 99%RA RESP 16 Physical Full cervical extension range of motion. Full TMJ range of motion. TMD > 3.5 finger breaths Mallampati Score I Dentition: missing sides, + crown Lungs: clear throughout to auscultation Cardiac: regular rate and rhythm, no murmurs noted Spine: normal Carotid arteries: negative bruit Extremities: no LE edema Lab Results Anesthesia Preop Results Results Anesthesia Widget: WBC 4.93 K/ul (4.8-10.8) 05/15/24 Hgb 12.6 g/dl (12.0-16.0) 05/15/24 Hct 38.9 % (37.0-47.0) 05/15/24 Plt 301 K/uL (130-400) 05/15/24 Na 139 mmol/L (136-145) 05/15/24 K 4.8 mmol/L (3.5-5.1) 05/15/24 Cl 106 mmol/L (98-107) 05/15/24 CO2 30 mmol/L (21-32) 05/15/24 BUN 10 mg/dl (6-23) 05/15/24 Creat 0.76 mg/dl (0.6-1.2) 05/15/24 Glucose Level 67 mg/dl (70-99(Fasting)) L 05/15/24 PT 10.6 Seconds (9.0-12.0) 05/15/24 PTT 26 Seconds (21-31) 05/15/24 INR 1.0 (0.9-1.1) 05/15/24 Blood Type A Negative 05/15/24 Antibody Screen NEGATIVE 05/15/24 Testing Electrocardiogram Date: 01/13/24 NSR at 91bpm. Leftward axis. Poor R wave progression. Cannot r/o anterior infarct, age undetermined. (PRWP noted on comparison ECG from 01/16/2019). Chest X-Ray Date: 05/15/24 FINDINGS: Lung volumes are normal. Lungs are clear. There is no pneumothorax or pleural effusion. Cardiac size is normal. Mediastinal contours are normal. There is no evidence for pulmonary edema. Suspected distal right clavicular resection. IMPRESSION: No acute cardiopulmonary findings. Cervical Spine X-ray Date: 05/15/24 FINDINGS: Lung volumes are normal. Lungs are clear. There is no pneumothorax or pleural effusion. Cardiac size is normal. Mediastinal contours are normal. There is no evidence for pulmonary edema. Suspected distal right clavicular resection.
--- NOTE | 2024-06-02 13:59 | History & Physical Report ---
Date of Service June 02, 2024 Assessment & Plan (1) Chronic knee pain after total replacement of both knee joints: 58-year-old female status post bilateral knee replacements in 2006 with fairly obvious loosening of the tibial tray is in both knees. There is just developed over the past year. There is no signs of infection. She has had gastric bypass surgery in the relatively recent bowel obstruction but recovered from this. Her symptoms been progressive over the past year. Plan: We discussed treatment options with the patient and she is would like to proceed with revision surgery. I think she is probably getting both knees revised in the future but the right knee is the worst. Organ to take her to the operating room do right revision arthroplasty. We may just revise the tibia depending on what we find but most likely will revise both implants. There is cements of revision arthroplasty were explained and patient understands. Informed consent was obtained. Likely put some vancomycin in her cement. She is planning on being discharged to home with home health using [facility] program. Will use aspirin for DVT prophylaxis. (2) Aseptic loosening of prosthetic knee: (3) Loose total knee arthroplasty: History of Present Illness Chief Complaint: . Bilateral knee pain and discomfort after total knee replacement Primary Care Provider: Sanjeev Weinberg MD . The patient is a 58-year-old female who presents for follow-up and treatment of her knees. She had both of her knees replaced by Dr. Decker shot back in 2006. She did quite well until just about a year ago when she did start develop increased pain discomfort in both knees right side a bit worse than the left. She saw Dr. Mukherjee and had an extensive evaluation which she really did not show much. 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 She had a bone scan which showed a slightly increased uptake in the right compared to the left. I had seen her back then and the x-rays look pretty normal. Over time she has had persistent pain discomfort and swelling. X-rays now show obvious loosening of the tibial tray is in the right side worse than the left. She presents for definitive treatment. Pains become more disabling. She has an infectious workup which has been negative. Patient does have history of gastric bypass surgery many years ago and lost some weight and then gained some back. She had a bowel obstruction about 5 months ago and now recovered from this. No history of infection. Allergies Allergy/AdvReac Type Severity Reaction Status Date / Time hydrocodone Allergy Mild Itching Verified 05/10/24 12:39 Home Medications Medication Instructions Recorded Confirmed Type acetaminophen 325 mg tablet 975 mg PO Q6H PRN Pain 01/17/24 05/01/24 History thiamine HCl (vitamin B1) 50 mg 100 mg PO QAM 01/17/24 05/01/24 History tablet phytonadione (vitamin K1) 100 mcg 100 mcg PO QAM 02/09/24 05/01/24 History tablet vitamin A palmitate 3,000 mcg 3,000 mcg PO QAM 02/09/24 05/01/24 History (10,000 unit) tablet zinc 10 mg tablet 10 mg PO QAM 03/13/24 05/01/24 History bupropion HCl 150 mg tablet,12 hr 150 mg PO BID #180 ea 04/13/24 05/01/24 Rx sustained-release ascorbic acid (vitamin C) 1,000 mg 1 g PO DAILY PRN Cold Symptoms 05/01/24 05/01/24 History tablet (Vitamin C) calcium 600 mg capsule 600 mg PO QAM 05/01/24 05/01/24 History cholecalciferol (vitamin D3) 1,250 1,250 mcg PO Q7D 05/01/24 05/01/24 History mcg (50,000 unit) tablet cyanocobalamin (vitamin B-12) 1,000 mcg PO Q3D 05/01/24 05/01/24 History 1,000 mcg tablet (Vitamin B-12) ferrous sulfate 325 mg (65 mg 325 mg PO QAM 05/01/24 05/01/24 History iron) tablet (Iron (ferrous sulfate)) hydroxychloroquine 200 mg tablet 200 mg PO BID 05/01/24 05/01/24 History levomefolate calcium 15 mg tablet 15 mg PO QAM 05/01/24 05/01/24 History magnesium 1 tab PO QAM 05/01/24 05/01/24 History duloxetine 30 mg capsule,delayed 30 mg PO DAILY 05/15/24 05/15/24 History release (Cymbalta) Past Med/Surg History Problem List (Updated 06/03/24 @ 08:55 by Brett Nelson MD) 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 Acute hyponatremia (Acute) Chronic knee pain after total replacement of both knee joints Restless legs syndrome Hyperlipidemia Iron deficiency Reactive airway disease (Acute) Vitamin D deficiency (Chronic) Depression with anxiety (Chronic) Encounter for pre-operative examination Medical History Hx of colonic polyps Obesity, Class II, BMI 35-39.9 History of COVID-19 2019, no residual symptoms History of reactive airway disease No issues x years, no recent issues or inhalers Hx of hyperlipidemia Chronic knee pain after total replacement of both knee joints Rheumatoid arthritis Recently started Plaquenil Small bowel obstruction Hx (12/2023) Sleep apnea Possible remote hx, "believe to have it prior to gastric bypass, after testing felt her issues were from restless legs, never had to have a device" Iron deficiency anemia Fibromyalgia Osteoarthritis Depression Anxiety Restless leg syndrome Surgical History Hx of colonoscopy Hx of gastric bypass 2007, Ale-en-Y bypass S/P small bowel resection + umbilical hernia repair, [facility] (12/2023) History of arthroplasty of finger of left hand left thumb History of trigger finger left hand middle finger History of arthroplasty of finger of right hand thumb joint History of arthroscopy of right knee History of total left knee replacement (TKR) History of total right knee replacement (TKR) History of esophagogastroduodenoscopy (EGD) History of tooth extraction History of wisdom tooth extraction Family History Grandmother (Maternal) Family hx of colon cancer Colorectal cancer Mother Atrial fibrillation Father COPD (chronic obstructive pulmonary disease) Sister Obesity Brother Arthritis Grandmother (Maternal) Colorectal cancer Other No family history of adverse response to anesthesia Denies family history of Ovarian cancer Breast cancer Social History Smoking Status: Never smoker Second Hand Exposure: Yes (hx growing up); Do You Dip or Chew Tobacco: No; Tobacco Cessation Education Requested by Patient: No Hx Alcohol Use: Yes Alcohol type: beer, wine and hard liquor Alcohol Intake Frequency: Monthly or Less Hx Substance Use: No Preferred Language: Turkish Communication Ability: Effective Hand Booked Folder And Stitcher Required: No Beliefs That Will Affect Care: None marital status: Current Living Situation: Spouse current occupational status: employed current occupation: [employer] How many Children do You have: 1 Other Information That Helps Us Care for You: No Feels Safe at Home: Yes Safety Concerns: Feels Safe At This Time Childhood Exposure to Second-Hand Smoke: Yes Diet: regular caffeine: Yes Dental Care, Regularly: Yes Physical Activity Frequency: 1-2 Times per Week Seatbelt Use: always Sunscreen Use: No Assistive Devices: Contacts Review of Systems All systems reviewed & are unremarkable except as noted in HPI & below. Physical Exam . Physical examination reveals a pleasant middle-age female but looks to be in reasonably good health. Examination of both knees reveal patient walks with a bit of a antalgic gait. She limps clearly on the right side more so than the left. Examination of the right knee reveals a well-healed incision. Got a moderate- sized soft tissue envelope. Small to moderate-sized knee effusion. Range of motion 0-1 20. No gross instability. No pain with hip motion. Examination left knee reveals a similar soft tissue envelope. Fairly neutral alignment to her knee. Equivocal effusion. Range of motion 0-1 20. No instability. Constitutional WD/WN, vitals as above Neck trachea midline, no thyromegaly Respiratory normal respiratory effort, lungs clear to auscultation Cardiovascular RRR, no murmur, no edema Gastrointestinal (Abdomen) normal bowel sounds, soft, nontender, no hepatosplenomegaly Results & Data Results & Data Laboratory Results . He did pretty extensive lab workup. Her white cell count is normal. Hemoglobin hematocrit are normal. Sed rate is normal at 8 and CRP is less than 0.50 We did aspirate her knee back in March. White cell count was 1166 with 58% polys. Crystal analysis was negative. Cultures are negative. Diagnostic Findings . [facility] scan [facility] was reviewed from July 07 of last year. It shows increased uptake in the tibia on both knees right side a bit worse than the left. Otherwise not too specific. X-rays of both knees were reviewed. She has obvious positioning of the tibia x- rays more so in the right than the left. This is progressed over the past year compared to previous films at [facility]. Femoral implants look to be still be a fixed PG Care Time/CCT Total # of Minutes Spent Total Time Spent with Patient: Total time spent is greater than 50% in coordination of care (as documented) at patient's floor/unit and/or counseling patient: Coding Level of Care Code None Diagnoses Chronic knee pain after total replacement of both knee joints M25.561; M25.562; G89.28; Z96.653 Aseptic loosening of prosthetic knee T84.038A; Z96.659 Loose total knee arthroplasty T84.038A; Z96.659
[~2024-06-09 08:06] MED LIST changes: +BUPIVACAINE 0.25% PF 30 ML VIAL ONE; +BUPIVACAINE 0.5 % 5 MG/1 ML PF 10ML VIAL ONE; -BUPRTAB51 PO; -CALC-214 PO; -CHOL100010 PO; -CYAN10005 PO; -L-ME1CAP PO; -OMEGCAP2 PO; -SERT-234 PO
--- NOTE | 2024-06-09 08:36 | History & Physical Bridge Note ---
Date of Service June 09, 2024 History & Physical Bridge Note I have examined the patient, reviewed the History & Physical and in the interval since the performance of the History & Physical I have noted the following changes of clinical significance: no changes noted
[2024-06-09] MEDS: dexAMETHasone**PF** 10 MG/ML VIAL IV SCH (09:11)
[2024-06-09] MEDS: ACETAMINOPHEN 500 MG TAB PO SCH ×2 (09:11→22:10)
[2024-06-09] MEDS: METOCLOPRAMIDE HCL 10 MG TABLET PO SCH (09:11)
[2024-06-09] MEDS: CeleBREX 200 MG CAP PO SCH (09:11)
[2024-06-09] MEDS: LR 500ML BOLUS, THEN 15ML/HR IV SCH (09:11)
[2024-06-09] MEDS: FAMOTIDINE 20 MG TAB PO SCH (09:11)
[2024-06-09] MEDS: LR 60ML/HR IV SCH (09:12)
[2024-06-09] MEDS ORDERED: MIDAZOLAM HCL 1 MG/ML 2ML VIAL ONE ×3 (09:34→12:21)
[2024-06-09] MEDS ORDERED: fentaNYL citrate PF 100 MCG/2 ML VIAL ONE ×2 (09:35→13:36)
[2024-06-09] MEDS ORDERED: ePHEDrine sulfate 50 MG/ML AMP ONE (09:36)
[2024-06-09] MEDS ORDERED: PROPOFOL IV EMULSION 10 MG/ML 20 ML VIAL IV ONE ×4 (09:37→13:53)
[2024-06-09] MEDS ORDERED: LIDOCAINE 2% 2 ML VIAL/AMP(20MG/ML) INFIL ONE (09:37)
[2024-06-09] MEDS ORDERED: ONDANSETRON INJ 2 MG/ML 2 ML VIAL ONE (09:37)
[2024-06-09] MEDS ORDERED: ePHEDrine sulfate 50 MG/ML AMP IV PRN (10:57)
[2024-06-09] MEDS ORDERED: fentaNYL citrate PF 100 MCG/2 ML VIAL IV PRN (10:57)
[2024-06-09] MEDS ORDERED: ATROPINE SULFATE 0.1 MG/ML 10ML SYR IV PRN (10:57)
[2024-06-09] MEDS ORDERED: ONDANSETRON INJ 2 MG/ML 2 ML VIAL IV PRN (10:57)
[2024-06-09] MEDS: TRANEXAMIC ACID 1,000 MG **IV Intra-op IV SCH (11:18)
[2024-06-09] MEDS: ceFAZolin 2000MG 2,000 MG/15 ML SYR IV SCH ×2 (11:33→20:02)
[2024-06-09] MEDS: VANCOMYCIN HCL 1000MG/20ML VIAL ONE (12:24)
[2024-06-09] MEDS: ORTHO JOINT ANESTHETIC ONE (12:24)
[2024-06-09] MEDS ORDERED: DexMEDEtomidine HCL IV 100 MCG/ML VIAL IV ONE (13:40)
[2024-06-09] MEDS: ROPIV 0.5% 246mg, Ketorolac 30mg, EPINEPHrine 0.5mg in NSS INFIL SCH (13:46)
--- NOTE | 2024-06-09 14:44 | Operative Report ---
PG Post Operative Report Pre & Post Diagnosis Operation Date: 06/09/24 10:40 Pre-Op Diagnosis: Aseptic loosening of right total knee replacement. Post-Op Diagnosis: Aseptic loosening of right total knee replacement. I identified the patient and participated in the time-out.: Yes Procedure Operation Date: 06/09/24 10:40 Actual Procedures p Right Total Knee Revision(Right) - Brett Nelson MD Surgeon Brett Nelson MD Pyrometer Temperature Regulator Paco Singh PA-C Estimated Blood Loss 100 Findings Consistent with Post-Op Diagnosis Operative findings revealed severe extensive synovitis. She had obvious gross loosening of the tibial tray. The femoral component was not grossly loose. Some moderate polyethylene wear. Patella was well-fixed. There was some slight wear in the patella but not felt bad enough to revise. Specimens Right knee synovium sent for frozen section which revealed 0 polys per high- power field. Synovium also sent for pathology. Joint fluid sent for stat Gram stain aerobic anaerobic culture. Anesthesia Type Spinal MAC Complications none Disposition Accompanied Patient To Recovery: No Indications Patient is a 58-year-old female who is now about 17 years out from bilateral knee replacement. She did quite well until about a year ago when she started developing pain discomfort and swelling of both knees. She went through extensive evaluation. There is no signs of infection. Over time it became obvious that her tibial tray was loose on the right side and likely on the left as well. She underwent an infectious workup which was negative. The patient indicated for revision knee arthroplasty. Description of Procedure Operative implants consists of: 1 Biomet Vanguard 360 size 62.5 right posterior stabilized revision femoral component with a 17 mm x 80 mm offset stem with a 2.5 mm offset with 5 mm distal augments on both sides and 5 mm posterior augments on both sides. 2. Biomet Vanguard 360 size 67 tibial revision tray with a 13 mm x 80 mm offset stem with a 5 mm offset and a small cruciate wing. 3. 22 mm posterior stabilized polyethylene bearing. Patient was taken the operating, identified, placed on the operating table in the supine position. All conductors were appropriately padded. IV antibiotics fibra anesthesia team. A spinal anesthetic been implemented holding area. Grier catheter was placed in sterile fashion. Right Tetrick was then placed to the right lower extremity was then prepped and draped in usual sterile fashion. The right leg was elevated and exsanguinated with use of an Esmarch and a turn was placed at 300 mmHg. An anterior approach to the right knee was then performed using the previous incision site. Sharp dissection was Through subcutaneous tissue directly down to the extensor mechanism. A medial parapatellar arthrotomy incision was made. We did sample the fluid and sent it off for stat Gram stain aerobic anaerobic culture. Subperiosteal dissection was carried out medially. I did an extensive synovectomy of the entire knee joint. She had extensive synovitis. The synovium was sent for a frozen section which revealed 0 polys per high-power field. We elected proceed with revision surgery. The patella was subluxated laterally and the knee was flexed. The polyethylene was removed. The tibial tray was grossly loose and removed without difficulty. With the use of osteotomes as well as the anterior cruciate ligament saw blade the femur was loosened from the distal femur and then removed without incident. I examined the patella was well-fixed. There was some wear but I did not think it was bad enough to warrant revision. We elected to proceed with revision beginning with the tibia. His cement was very Carefully chipped away from the proximal tibia and tibial metaphyseal region. I then reamed up to a size 13. The IM cutting guide was placed in the tibia was then sized to a size 67 and prepared for a 13 mm offset stem with a 5 mm offset. This was assembled and sit nicely. Side limit probably medial side we excepted that. Attention drawn the femur. This femur was entered with a sharp drill. Intramedullary canal was suction. I then reamed up to a size 17. Reamer was left in place and the distal femoral cutting block was placed. We are cut to make a freshen up cut on both sides of the distal femur. The femur was then sized to a size 62.5. The AP cutting block was pinned in place. The anterior cut, anterior chamfer, posterior cut, posterior chamfer cuts were made. The femur was then assembled and placed on the distal femur. The box cutting guide was used and the box cut was made. After trialing the with different inserts we elect to place a 5 mm augment distally on both sides of the femur as well as posterior 5 mm augments. With these in place the knee was well-balanced in flexion extension with a 22 mm insert. We elect to place these implants. All trial implants were removed. A triple batch of Palacos G cement was mixed with 2 g of vancomycin. We then cemented the implants in place. A 22 mm insert was placed. The knee was brought out into full extension till cement hardened. Final cement check was then performed. The pericapsular tissues were injected with 100 cc of Ortho mix. The tourniquet was let down for final tourniquet time 124 minutes. Hemostasis assured use electrocautery. Extensor Meclomen closed with combination 1 PDS suture #1 Vicryl suture in a [id number] fashion. Extensor Meclomen checked found to be intact with subcutaneous tissue then closed with 2-0 Dexon suture in a buried interrupted fashion skin was closed skin caryn. Leg was then cleaned and dried and a sterile dressing with Xeroform, 4 fours, sterile cast padding, Kevin bandage were applied. Patient then transferred to the recovery room in stable condition. Patient tolerated procedure well and there were no complications. Paco Singh, my physician drug safety assistant, was present for the entire procedure. His assistance was essential and required for appropriate patient positioning, prepping and draping, surgical exposure, performing the technical details of the operation, placement the implants, closure of the wound, and placement of the sterile bandage. I attest to the content of the Intraoperative Record and any orders documented therein. Any exceptions are noted below.
--- NOTE | 2024-06-09 15:00 | Anesthesiology Progress Note ---
Date of Service June 09, 2024 Anesthesia Post Procedure Vital Signs Vital Signs: Temp Pulse Pulse Resp BP BP Pulse Ox 06/09/24 14:55 74 17 125/72 97 06/09/24 14:45 81 18 128/77 93 06/09/24 14:35 37.1 C 85 16 114/75 96 06/09/24 09:08 37.3 C 71 20 147/87 H 96 O2 Del Method O2 Flow Rate 06/09/24 14:55 Room Air 06/09/24 14:45 Room Air 06/09/24 14:35 Oxymask 4 06/09/24 09:08 Room Air Transfer of Care Handoff Completed per policy Notes Mental Status: alert / awake / arousable Patient Amnestic to Procedure: Yes Nausea / Vomiting: adequately controlled Pain: adequately controlled Airway Patency, RR, SpO2: stable & adequate BP & HR: stable & adequate Hydration State: stable & adequate Neuraxial Anesthesia: was administered and sensory block is resolving Anesthetic Complications: no major complications apparent and Pt Satisfied with anesthetic care
--- NOTE | 2024-06-09 15:44 | XRay Report ---
XR knee RT 1 or 2V routine CLINICAL HISTORY: Postoperative evaluation. COMPARISON: Right knee radiograph April 06, 2024. FINDINGS: Alignment of the revision right knee arthroplasty is anatomic. There is no periprosthetic fracture or unexpected radiopaque foreign body. There are skin caryn. IMPRESSION: Expected findings following revision right knee arthroplasty. ACT 112: Negative or not required by law. Electronically signed by: Bret Soto M.D. 06/09/2024 3:43 PM
[2024-06-09] MEDS ORDERED: HYDROmorphone INJ 0.5 MG/0.5 ML SYR IV PRN (16:02)
[2024-06-09] MEDS ORDERED: bisacodyL 10 MG SUPP PR PRN (16:02)
[2024-06-09] MEDS ORDERED: NON-FORMULARY MEDICATION (Ascorbic Acid (Vitamin C) [Vitamin C] 1,000 mg Tablet) PO PRN (16:02)
[2024-06-09] MEDS ORDERED: NO NSAIDS SCH (16:02)
[2024-06-09] MEDS ORDERED: NALOXONE HCL 0.4 MG/1 ML VIAL/CARP IV PRN (16:02)
[2024-06-09] MEDS ORDERED: ALUMINUM/MAGNESIUM SUSP 30 ML UDC PO PRN (16:02)
[2024-06-09] MEDS: ASCORBIC ACID 500 MG TAB PO SCH (17:26)
[2024-06-09] MEDS: oxyCODONE HCL IR 5 MG TAB (IMMEDIATE RELEASE) PO PRN (19:32)
[2024-06-09] MEDS: TRANEXAMIC ACID / 0.7% NACL 1,000 MG/100 ML BAG IV SCH (20:02)
[2024-06-09] MEDS: DOCUSATE SODIUM 100 MG CAP PO SCH (20:02)
[2024-06-09] MEDS: buPROPion SR 150 MG TABCR PO SCH (20:02)
[2024-06-09] MEDS: SENNA 8.6 MG TAB PO SCH (20:02)
[2024-06-09] MEDS: ASPIRIN 81 MG ECTAB PO SCH (20:02)
[2024-06-09] MEDS: HYDROXYCHLOROQUINE SULFATE 200 MG TAB PO SCH (20:02)
[2024-06-09] MEDS ORDERED: SENNA 8.6 MG TAB PO SCH (21:00)
[2024-06-10] MEDS: LACTATED RINGER'S 500 ML IV ONE (06:57)
[2024-06-10 07:00] LABS: Hematocrit (blood only) 26.9 % (37.0-47.0); Hemoglobin 8.9 g/dl (12.0-16.0); Mean Corpuscular Hemoglobin 29.6 pg (25.0-34.0); Mean Corpuscular Hgb Conc 33.1 g/dL (32.0-36.0); Mean Corpuscular Volume 89.4 fL (80.0-100.0); Mean Platelet Volume 9.8 fL (9.4-12.4); Platelet Count 275 K/uL (130-400); RDW Coefficient of Variation 16.4 % (11.5-14.5); RDW Standard Deviation 53.9 fL (36.4-46.3); Red Blood Count 3.01 M/uL (4.20-5.40); White Blood Count 12.06 K/ul (4.8-10.8)
[2024-06-10 07:10] LABS: BUN Creatinine Ratio 17.3 (10-20); Calcium 8.4 mg/dl (8.6-10.3); Creatinine Clr Calc Pharmacy 74.9 ml/min; Potassium 3.9 mmol/L (3.5-5.1)
--- NOTE | 2024-06-10 07:44 | Orthopedic Progress Note ---
Date of Service June 10, 2024 Assessment & Plan (1) Status post revision of total replacement of right knee: Plan: 58-year-old female postop day 1 from a revision arthroplasty for aseptic loosening. That she is doing quite well. She is a bit hypotensive when she first got up but I think this will improve as time goes on. Her pain is well- controlled. She is neurologically intact. There is not much blood loss. She is slightly anemic but currently acutely anemic. She is healthy and should not need blood transfusion. Encourage p.o. intake. Plan: 1. DVT prophylaxis including thigh-high teds, SCDs, baby aspirin twice a day. 2. PT/OT. Weightbearing as tolerated. Right lower extremity. 3. Pain control doing well with current pain regimen. 4. Disposition. Plan to discharge to home with some home health. (2) Aseptic loosening of prosthetic knee: (3) Loose total knee arthroplasty: Admission and Anticipated Discharge Date Admission Date: June 09, 2024 Subjective 58-year-old female postop day 1 from revision right total knee arthroplasty for aseptic loosening. She is doing well this morning. Got a little dizzy when she first got up and was a bit hypotensive. They given some fluid. She is feeling fine now. No chest pain or shortness of breath. Knee pain is well-controlled. Physical Exam Physical Exam: Physical examination was a pleasant middle-age female. Lying bed looks completely comfortable. Examination of the right leg reveals the dressing be clean dry and intact. She can dorsiflex and plantarflex her foot appropriately. She can do a good straight leg raise. Respiratory: normal respiratory effort, lungs clear to auscultation Cardiovascular: RRR, no murmur, no edema Gastrointestinal (Abdomen): normal bowel sounds, soft, nontender, no hepatosplenomegaly Results & Data Vital Signs (Past 12 Hours) Vital Signs Temp Pulse Resp BP Pulse Ox O2 Del Method 06/10/24 06:58 36.6 C 53 L 16 83/53 L 99 Room Air 06/10/24 06:54 87/54 L 06/10/24 06:43 86/55 L 06/10/24 06:36 67/45 L 06/10/24 03:00 36.6 C 71 16 109/63 95 Room Air 06/09/24 23:00 36.7 C 65 16 110/68 96 Room Air Laboratory Results Hemoglobin is 8.9 hematocrit is 26.9. Electrolytes are stable.
[2024-06-10] MEDS ORDERED: VITAMIN A PALMITATE PO SCH (09:00)
[2024-06-10] MEDS ORDERED: NON-FORMULARY MEDICATION (Calcium 600 mg Capsule) PO SCH (09:00)
[2024-06-10] MEDS ORDERED: NON-FORMULARY MEDICATION (Zinc 10 mg Tablet) PO SCH (09:00)
[2024-06-10] MEDS ORDERED: LEVOMEFOLATE CALCIUM 15 MG PO SCH (09:00)
[2024-06-10] MEDS ORDERED: NON-FORMULARY MEDICATION (Magnesium Tablet) PO SCH (09:00)
[2024-06-10] MEDS ORDERED: PHYTONADIONE 100 MCG PO SCH (09:00)
[2024-06-10] MEDS: CYANOCOBALAMIN (B-12) 500 MCG TABLET PO SCH (09:22)
[2024-06-10] MEDS: DULoxetine HCL 30 MG CAP PO SCH (09:22)
[2024-06-10] MEDS: THIAMINE HCL 100 MG TAB PO SCH (09:22)
[2024-06-10] MEDS: FERROUS SULFATE 325 MG TAB PO SCH (09:22)
[2024-06-10] MEDS: MULTIVITAMIN TAB PO SCH (09:23)
[2024-06-10] MEDS: ONDANSETRON INJ 2 MG/ML 2 ML VIAL IV PRN (22:01)
--- NOTE | 2024-06-11 07:46 | Orthopedic Progress Note ---
Date of Service June 11, 2024 Assessment & Plan (1) Status post revision of total replacement of right knee: Plan: 58-year-old female postop day 2 from a revision knee arthroplasty. And generally she is doing quite well. Pains controlled. She is neurologically intact. Biggest issue is just trouble mobilizing. She has been getting a little hypotensive and dizzy. Hemoglobin and hematocrit are fine. Asymptomatic otherwise. This should clear with time. Plan: 1. DVT prophylaxis including thigh-high teds, SCDs, aspirin twice a day. 2. PT/OT. Weight-bear as tolerated. Right total knee protocol. 3. Pain control. Doing fine with current pain regimen. 4. Hypotension/dizziness. Will continue to try and mobilize her today. Encourage p.o. intake. This should clear up over time. 5. Disposition. Plan to discharge home with some home health once medically stable. Admission and Anticipated Discharge Date Admission Date: June 09, 2024 Subjective 58-year-old female postop day 2 from revision total knee arthroplasty. She has had some problems with mobilizing. She is been getting lightheaded and hypotensive with mobilization. Really did not do too well in therapy yesterday. Pains controlled. Otherwise doing fine. No chest pain or shortness of breath. Not feeling dizzy or lightheaded currently. Only struggling when going from lying to a standing position. Physical Exam Physical Exam: Physical exam shows a pleasant middle-aged female. She is lying in bed looks completely comfortable. Examination of the right leg reveals leg to be well aligned. Dressings clean dry and intact. She can dorsiflex and plantarflex her foot appropriately. She can do a good straight leg raise. Results & Data Vital Signs (Past 12 Hours) Vital Signs Temp Pulse Resp BP Pulse Ox O2 Del Method 06/11/24 07:33 37.4 C 77 18 97/68 L 97 Room Air Laboratory Results Culture results. No growth
[2024-06-11] MEDS: METOCLOPRAMIDE HCL INJ 5 MG/ML 2 ML VIAL IV PRN (12:33)
[2024-06-11] MEDS: MAGNESIUM HYDROXIDE SUSP 30 ML UDC PO PRN (12:37)
[2024-06-11] MEDS ORDERED: ONDANSETRON INJ 2 MG/ML 2 ML VIAL IV PRN (19:35)
--- NOTE | 2024-06-11 19:52 | Hospitalist Consultation ---
Date of Consultation June 11, 2024 Assessment & Plan (1) Abdominal pain: (2) Nausea & vomiting: (3) Status post revision of total replacement of right knee: Plan 58 yo female PMHx RLS, HLD, anxiety/depression, gastric bypass, SOB s/p bowel resection, POD 2 s/p R total knee revision. #Abdominal Pain/Nausea/Vomiting STAT CT AP w/ IV con ordered - demonstrates repeat SBO CBC, CMP, Mag, Coags, lactate ordered - reassuring Zofran PRN Pain control per post-op regimen Maintain NPO status Can convert pain control to IV if unable to tolerate PO Surgery consulted - if N/V returns despite antiemetics, place NG tube Start LR @ 80cc/hr Feel appropriate to maintain med/surg level of care If patient were to decompensate and require surgical intervention would require transfer due to complex intra-abdominal pathology Otherwise continue management per primary team Please contact with questions Supervising Physician Co-Signing Physician Notes Attending addendum: I have physically seen this patient, have supervised the medical residents activities, and agree with the H&P unless as otherwise noted. Assessment and Plan: The patient is a 50-year-old female with past medical history including RLS, hyperlipidemia, anxiety with depression, gastric bypass, shortness of breath, status post bowel resection, who is postop day 2 status post right total knee revision. [facility] hospitalist service consulted due to concerns regarding orthostasis, nausea, vomiting abdominal pain. Pain began earlier in the day, and now is accompanied by nausea and vomiting Unable to tolerate oral intake throughout the day Patient does have flatulence, but no BM today History of SBO status post bowel resection last fall Patient notes dizziness upon standing\\ #Abdominal pain/nausea/vomiting- Stat CT scan abdomen pelvis with IV contrast ordered demonstrates repeat small bowel obstruction CBC with differential, chemistry profile, magnesium, coags and lactate ordered Zofran 4 mg IV every 6 hours as needed Minimize narcotics post op at this time Continue n.p.o. status Consult general surgery NG tube to low intermittent suction symptoms persistent LR 80 mL/h Antibiotics as noted History of Present Illness Reason for Consultation: orthostasis, nausea, vomiting, abdominal pain Requesting Physician: Dr. Nelson Attending Physician: Brett Nelson MD History of Present Illness 58 yo female PMHx RLS, HLD, anxiety/depression, gastric bypass, SOB s/p bowel resection POD 2 s/p R total knee revision. Hospitalist service is asked to evaluate the patient for orthostasis, nausea, vomiting and abdominal pain. Pt has had abdominal pain since earlier in the day today now accompanied by nausea and vomiting. She has largely been unable to tolerate her diet today. Does endorse flatulence but no bowel movement today. She has a history of SBO s/p bowel resection last fall and states this feels similar. She has been intermittenly hypotensive throughout the day, unable to stand without significant dizziness. She is able to sit up in bed without difficulty. At time of evaluation VSS, pt alert and oriented. Allergies Allergy/AdvReac Type Severity Reaction Status Date / Time hydrocodone Allergy Mild Itching Verified 06/09/24 09:03 Home Medications Medication Instructions Recorded Confirmed Type acetaminophen 325 mg tablet 975 mg PO Q6H PRN Pain 01/17/24 06/09/24 History thiamine HCl (vitamin B1) 50 mg 100 mg PO QAM 01/17/24 06/09/24 History tablet phytonadione (vitamin K1) 100 mcg 100 mcg PO QAM 02/09/24 06/09/24 History tablet vitamin A palmitate 3,000 mcg 3,000 mcg PO QAM 02/09/24 06/09/24 History (10,000 unit) tablet zinc 10 mg tablet 10 mg PO QAM 03/13/24 06/09/24 History bupropion HCl 150 mg tablet,12 hr 150 mg PO BID #180 ea 04/13/24 06/09/24 Rx sustained-release ascorbic acid (vitamin C) 1,000 mg 1 g PO DAILY PRN Cold Symptoms 05/01/24 06/09/24 History tablet (Vitamin C) calcium 600 mg capsule 600 mg PO QAM 05/01/24 06/09/24 History cholecalciferol (vitamin D3) 1,250 1,250 mcg PO Q7D 05/01/24 06/09/24 History mcg (50,000 unit) tablet cyanocobalamin (vitamin B-12) 1,000 mcg PO Q3D 05/01/24 06/09/24 History 1,000 mcg tablet (Vitamin B-12) ferrous sulfate 325 mg (65 mg 325 mg PO QAM 05/01/24 06/09/24 History iron) tablet (Iron (ferrous sulfate)) hydroxychloroquine 200 mg tablet 200 mg PO BID 05/01/24 06/09/24 History levomefolate calcium 15 mg tablet 15 mg PO QAM 05/01/24 06/09/24 History magnesium 1 tab PO QAM 05/01/24 06/09/24 History duloxetine 30 mg capsule,delayed 30 mg PO DAILY 05/15/24 06/09/24 History release (Cymbalta) acetaminophen 500 mg tablet 1,000 mg (2 x 500 mg) PO TID pain 06/07/24 06/09/24 Rx (Tylenol Extra Strength) 30 days #180 tabs aspirin 81 mg tablet,delayed 81 mg PO BID 45 days #90 tabs 06/07/24 06/09/24 Rx release (Kalli Low Dose Aspirin) cefadroxil 500 mg capsule 500 mg PO BID 7 days #14 caps 06/07/24 06/09/24 Rx ondansetron 4 mg disintegrating 4 mg PO Q8 PRN nausea #20 tabs 06/07/24 06/09/24 Rx tablet oxycodone 5 mg tablet 5 - 10 mg (1 - 2 x 5 mg) PO Q6 PRN 06/07/24 06/09/24 Rx pain #40 tabs sennosides 8.6 mg tablet (Senokot) 8.6 mg PO BID prevent constipation 06/07/24 06/09/24 Rx 14 days #28 tabs Patient History Medical History Hx of colonic polyps Obesity, Class II, BMI 35-39.9 History of COVID-19 2019, no residual symptoms History of reactive airway disease No issues x years, no recent issues or inhalers Hx of hyperlipidemia Chronic knee pain after total replacement of both knee joints Rheumatoid arthritis Recently started Plaquenil Small bowel obstruction Hx (12/2023) Sleep apnea Possible remote hx, "believe to have it prior to gastric bypass, after testing felt her issues were from restless legs, never had to have a device" Iron deficiency anemia Fibromyalgia Osteoarthritis Depression Anxiety Restless leg syndrome Surgical History Hx of colonoscopy Hx of gastric bypass 2007, Ale-en-Y bypass S/P small bowel resection + umbilical hernia repair, [facility] (12/2023) History of arthroplasty of finger of left hand left thumb History of trigger finger left hand middle finger History of arthroplasty of finger of right hand thumb joint History of arthroscopy of right knee History of total left knee replacement (TKR) History of total right knee replacement (TKR) History of esophagogastroduodenoscopy (EGD) History of tooth extraction History of wisdom tooth extraction Family History Grandmother (Maternal) Family hx of colon cancer Colorectal cancer Mother Atrial fibrillation Father COPD (chronic obstructive pulmonary disease) Sister Obesity Brother Arthritis Grandmother (Maternal) Colorectal cancer Other No family history of adverse response to anesthesia Denies family history of Ovarian cancer Breast cancer Social History Smoking Status: Never smoker Second Hand Exposure: Yes (hx growing up); Do You Dip or Chew Tobacco: No; Tobacco Cessation Education Requested by Patient: No Hx Alcohol Use: Yes Alcohol type: beer, wine and hard liquor Alcohol Intake Frequency: Monthly or Less Hx Substance Use: No Preferred Language: [place] Communication Ability: Effective Lens Maker Required: No Beliefs That Will Affect Care: None marital status: Current Living Situation: Spouse current occupational status: employed current occupation: [employer] How many Children do You have: 1 Other Information That Helps Us Care for You: No Feels Safe at Home: Yes Safety Concerns: Feels Safe At This Time Childhood Exposure to Second-Hand Smoke: Yes Diet: regular caffeine: Yes Dental Care, Regularly: Yes Physical Activity Frequency: 1-2 Times per Week Seatbelt Use: always Sunscreen Use: No Assistive Devices: Cane and Walker Review of Systems Review of Systems: reviewed, per HPI Physical Exam Physical Exam: Constitutional: well-appearing, no acute distress HEENT: NCAT, no conjunctival injection CV: extremities well-perfused, no LE edema Resp: no increased work of breathing GI: soft, nondistended, +TTP MSK: no gross deformities appreciated Skin: warm, dry, no rash appreciated Neuro: alert, oriented, no focal neurologic deficit appreciated Results & Data Results & Data Vital Signs (Past 12 Hours) Vital Signs Temp Pulse Resp BP Pulse Ox O2 Del Method 06/11/24 19:37 36.2 C L 70 20 162/92 H 98 Room Air 06/11/24 14:43 37.0 C 65 18 143/85 H 95 Room Air Resident Activity Tracking Resident Involvement: Resident Care Provided Care Provided: Adult Hospital Medicine
[2024-06-11 20:29] LABS: Basophils # (auto) 0.02 K/uL (0.00-0.20); Basophils % (auto) 0.2 %; Eosinophils # (auto) 0.06 K/uL (0.00-0.50); Eosinophils % (auto) 0.6 %; Hematocrit (blood only) 30.8 % (37.0-47.0); Hemoglobin 10.5 g/dl (12.0-16.0); Immature Granulocytes # (auto) 0.04 K/uL (0.01-0.20); Immature Granulocytes % (auto) 0.4 %; Lymphocytes % (auto) 6.5 %; Mean Corpuscular Hemoglobin 29.4 pg (25.0-34.0); Mean Corpuscular Hgb Conc 34.1 g/dL (32.0-36.0); Mean Corpuscular Volume 86.3 fL (80.0-100.0); Mean Platelet Volume 9.4 fL (9.4-12.4); Monocytes # (auto) 0.62 K/uL (0.11-0.59); Monocytes % (auto) 6.7 %; Neutrophils # (auto) 7.95 K/uL (1.40-6.50); Neutrophils % (auto) 85.6 %; Platelet Count 236 K/uL (130-400); Red Blood Count 3.57 M/uL (4.20-5.40); White Blood Count 9.29 K/ul (4.8-10.8)
[2024-06-11 20:45] LABS: Albumin Globulin Ratio 1.5 (0.9-2); Albumin Level 3.8 gm/dl (3.4-5.0); BUN Creatinine Ratio 19.3 (10-20); Bilirubin,Total 0.7 mg/dl (0.2-1.0); Calcium 9.4 mg/dl (8.6-10.3); Creatinine Clr Calc Pharmacy 106.4 ml/min; Globulin 2.6 gm/dl (2.5-4.0); Total Protein 6.4 gm/dl (6.0-8.3)
[2024-06-11 20:57] LABS: INR 0.9 (0.9-1.1); Prothrombin Time 10.3 Seconds (9.0-12.0)
[2024-06-11] MEDS: OPTIRAY 320 100ml IV ONE (21:54)
--- NOTE | 2024-06-11 23:40 | CT Scan Report ---
Exam(s): CT ABDOMEN + PELVIS With Contrast IV Amt: 93ml optiray 320 EXAM: CT Abdomen and Pelvis With Intravenous Contrast CLINICAL HISTORY: Abdominal pain, history of SBO s/p surgical interv. TECHNIQUE: Axial computed tomography images of the abdomen and pelvis with intravenous contrast. CTDI is 23.83 mGy and DLP is 1253.45 mGy-cm. Automated exposure control was utilized for the study. A dose lowering technique was utilized adhering to the principles of ALARA. CONTRAST: Patient received 93ml optiray 320 of IV contrast COMPARISON: 01/11/2024 FINDINGS: Lung bases: Unremarkable. No mass. No consolidation. ABDOMEN: Liver: Unchanged 1.6 cm irregular hypodense lesion right lobe of liver adjacent to the intrahepatic IVC, possibly a hemangioma. Gallbladder and bile ducts: Unremarkable. No calcified stones. No ductal dilation. Pancreas: Unremarkable. No mass. No ductal dilation. Spleen: Unremarkable. No splenomegaly. Adrenals: Unremarkable. No mass. Kidneys and ureters: No obstructive uropathy. No obstructing renal or ureteral calculi. No hydronephrosis or hydroureter. Stomach and bowel: Small hiatal hernia. Redemonstrated gastric sutures. Mildly distended stomach with air-fluid level. Diffuse proximal to mid small bowel dilatation with air-fluid levels. Loops of dilated small bowel in the mid abdomen have sutures compatible prior surgery are noted. Small bowel dilatation distal to the sutures. Transition in the mid right abdomen. No definite changes to suggest a volvulus. Distal small bowel and colon are normal in caliber. No evidence for diverticulitis. PELVIS: Appendix: No findings to suggest acute appendicitis. Bladder: Unremarkable. No mass. Reproductive: Uterus and ovaries are grossly unremarkable. ABDOMEN and PELVIS: Intraperitoneal space: No free air. Minimal pelvic free fluid. Bones/joints: No acute fracture. Degenerative changes of the spine. Soft tissues: Ventral abdominal and pelvic incision scar. Vasculature: Unremarkable. No abdominal aortic aneurysm. Lymph nodes: Unremarkable. No enlarged lymph nodes. IMPRESSION: Recurrent small bowel obstruction with dilated bowel to the mid abdomen. Possible transition right abdomen. Small amount of associated free fluid. Otherwise no change. Electronically signed by: Sacha Webb M.D. 06/11/24 23:39 PM
[2024-06-12] MEDS: LACTATED RINGER'S 1,000 ML IV SCH (00:25)
--- NOTE | 2024-06-12 00:26 | Surgery Consultation ---
Date of Consultation June 12, 2024 Assessment & Plan (1) Small bowel obstruction: I evaluated the patient in room 383 at approximately 12:00 AM on 06/12/2024. General surgery recommendations are as follows: Appears the patient has a small bowel obstruction on CT scan, and as noted previously this document interpreting radiologist specifically does not see any findings consistent with mesenteric swirling, internal hernia, or volvulus The patient is nontoxic-appearing at this time and does not have leukocytosis, tachycardia, hypotension, fever, or acute kidney injury. Therefore I feel conservative measures are warranted as outlined below Patient should have n.p.o. status implemented She should be hydrated IV fluids At the present time her abdomen is generally benign and she has not had any emesis in approximately 6 hours. I therefore feel we can hold on placing NG tube. I did discuss with the patient that if she has worsening of her abdominal exam or if she has any further emesis we may need to consider placing an NG tube and she is agreeable to this Serial labs should be followed Additional recommendations will be forthcoming based on her clinical course as it unfolds Addendum (6:10 AM) Patient revisited at bedside. I discussed with nursing staff as well. Patient has not had any further emesis throughout the evening and has not had emesis since approximately 6:00 PM on 06/11/2024. She does note that she is passing less flatus than before and has not had a bowel movement. On physical exam there is no change in her abdominal exam. The abdomen remains soft witho with minimal distention and is nonrigid. There is no rebound tenderness, guarding, or significant pain with palpation Will continue with plan as noted above History of Present Illness Reason for Consultation: Small bowel obstruction Attending Physician: Brett Nelson MD History of Present Illness This is a 58-year-old femal who was in the hospital for a right total knee revision. She underwent this operation e on 06/09/2024. Since the surgery the patient was doing well until the evening of 06/11/2024 when she began to develop some lower abdominal pain with associated nausea and vomiting. She notes that the symptoms began shortly after attempting to eat her evening meal on 06/11/2024. Since her symptoms began she has not had any further episodes of emesis (her most recent bout of emesis was approximately 6 hours prior to my evaluation which was at approximately 12:00 AM on 06/12/2024). She also notes that she is passing small amounts of flatus even since her symptoms began but she has not had a bowel movement since her surgery. She denies any fevers, shakes, or chills. Patient does have a complex abdominal history. Approximate 17 years ago the patient had a Ale-en-Y gastric bypass procedure. This was done at [facility]. Patient was doing well from that procedure for many years ho we she was admitted and December 2023 from the through with a small bowel obstruction. She was seen in consultation by general surgery was treated successfully in a conservative manner. The patient Barbara presented to emergency department on 01/11/2024 again secondary to abdominal pain at that time a CT scan showed the patient had a small bowel obstruction and concern for an internal hernia and mesenteric volvulus. Due to her history of gastric bypass she was transferred to [facility] and on 01/12/2024 she required an exploratory laparotomy at which time an internal hernia and a small bowel volvulus was identified. Patient did require small bowel resection and revision of her JJ anastomosis. Patient says that she was doing well from the surgery and has not had any abdominal issues until her above-noted symptomatology this admission. Patient does add that in December when she was transferred to [facility] her abdominal pain and symptoms were markedly worse than what she is experiencing at this time. Relevant imaging that the patient had was performed which I independently reviewed. This included a CT scan of the abdomen pelvis earlier this evening which showed the patient had evidence of a recurrent small bowel obstruction with dilatation of the bowel to the mid abdomen with a transition point in the right side of the abdomen. (I did specifically discuss with the interpreting radiologist and he specifically notes there is no evidence of mesenteric swirling or volvulus and does note that the obstruction appears to be distal to the identified anastomotic sutures). Most recent labs were from the evening of 06/11/2024 which include a CBC were white blood cell count platelet count were normal. Her hemoglobin and hematocrit were 10.5 and 30.8. Chemistry profile showed sodium is 132 with a normal potassium. BUN and creatinine were 11 and 0.5. At the time of my interview the patient was resting comfortably in bed and she was no distress. Allergies Allergy/AdvReac Type Severity Reaction Status Date / Time hydrocodone Allergy Mild Itching Verified 06/09/24 09:03 Home Medications Medication Instructions Recorded Confirmed Type acetaminophen 325 mg tablet 975 mg PO Q6H PRN Pain 01/17/24 06/09/24 History thiamine HCl (vitamin B1) 50 mg 100 mg PO QAM 01/17/24 06/09/24 History tablet phytonadione (vitamin K1) 100 mcg 100 mcg PO QAM 02/09/24 06/09/24 History tablet vitamin A palmitate 3,000 mcg 3,000 mcg PO QAM 02/09/24 06/09/24 History (10,000 unit) tablet zinc 10 mg tablet 10 mg PO QAM 03/13/24 06/09/24 History bupropion HCl 150 mg tablet,12 hr 150 mg PO BID #180 ea 04/13/24 06/09/24 Rx sustained-release ascorbic acid (vitamin C) 1,000 mg 1 g PO DAILY PRN Cold Symptoms 05/01/24 06/09/24 History tablet (Vitamin C) calcium 600 mg capsule 600 mg PO QAM 05/01/24 06/09/24 History cholecalciferol (vitamin D3) 1,250 1,250 mcg PO Q7D 05/01/24 06/09/24 History mcg (50,000 unit) tablet cyanocobalamin (vitamin B-12) 1,000 mcg PO Q3D 05/01/24 06/09/24 History 1,000 mcg tablet (Vitamin B-12) ferrous sulfate 325 mg (65 mg 325 mg PO QAM 05/01/24 06/09/24 History iron) tablet (Iron (ferrous sulfate)) hydroxychloroquine 200 mg tablet 200 mg PO BID 05/01/24 06/09/24 History levomefolate calcium 15 mg tablet 15 mg PO QAM 05/01/24 06/09/24 History magnesium 1 tab PO QAM 05/01/24 06/09/24 History duloxetine 30 mg capsule,delayed 30 mg PO DAILY 05/15/24 06/09/24 History release (Cymbalta) acetaminophen 500 mg tablet 1,000 mg (2 x 500 mg) PO TID pain 06/07/24 06/09/24 Rx (Tylenol Extra Strength) 30 days #180 tabs aspirin 81 mg tablet,delayed 81 mg PO BID 45 days #90 tabs 06/07/24 06/09/24 Rx release (Kalli Low Dose Aspirin) cefadroxil 500 mg capsule 500 mg PO BID 7 days #14 caps 06/07/24 06/09/24 Rx ondansetron 4 mg disintegrating 4 mg PO Q8 PRN nausea #20 tabs 06/07/24 06/09/24 Rx tablet oxycodone 5 mg tablet 5 - 10 mg (1 - 2 x 5 mg) PO Q6 PRN 06/07/24 06/09/24 Rx pain #40 tabs sennosides 8.6 mg tablet (Senokot) 8.6 mg PO BID prevent constipation 06/07/24 06/09/24 Rx 14 days #28 tabs Patient History Medical History Hx of colonic polyps Obesity, Class II, BMI 35-39.9 History of COVID-2019, no residual symptoms History of reactive airway disease No issues x years, no recent issues or inhalers Hx of hyperlipidemia Chronic knee pain after total replacement of both knee joints Rheumatoid arthritis Recently started Plaquenil Small bowel obstruction Hx (12/2023) Sleep apnea Possible remote hx, "believe to have it prior to gastric bypass, after testing felt her issues were from restless legs, never had to have a device" Iron deficiency anemia Fibromyalgia Osteoarthritis Depression Anxiety Restless leg syndrome Surgical History Hx of colonoscopy Hx of gastric bypass 2007, Ale-en-Y bypass S/P small bowel resection + umbilical hernia repair, [facility] (12/2023) History of arthroplasty of finger of left hand left thumb History of trigger finger left hand middle finger History of arthroplasty of finger of right hand thumb joint History of arthroscopy of right knee History of total left knee replacement (TKR) History of total right knee replacement (TKR) History of esophagogastroduodenoscopy (EGD) History of tooth extraction History of wisdom tooth extraction Family History Grandmother (Maternal) Family hx of colon cancer Colorectal cancer Mother Atrial fibrillation Father COPD (chronic obstructive pulmonary disease) Sister Obesity Brother Arthritis Grandmother (Maternal) Colorectal cancer Other No family history of adverse response to anesthesia Denies family history of Ovarian cancer Breast cancer Social History Smoking Status: Never smoker Second Hand Exposure: Yes (hx growing up); Do You Dip or Chew Tobacco: No; Tobacco Cessation Education Requested by Patient: No Hx Alcohol Use: Yes Alcohol type: beer, wine and hard liquor Alcohol Intake Frequency: Monthly or Less Hx Substance Use: No Preferred Language: Frisian Communication Ability: Effective Bundle Breaker Required: No Beliefs That Will Affect Care: None marital status: Current Living Situation: Spouse current occupational status: employed current occupation: [employer] How many Children do You have: 1 Other Information That Helps Us Care for You: No Feels Safe at Home: Yes Safety Concerns: Feels Safe At This Time Childhood Exposure to Second-Hand Smoke: Yes Diet: regular caffeine: Yes Dental Care, Regularly: Yes Physical Activity Frequency: 1-2 Times per Week Seatbelt Use: always Sunscreen Use: No Assistive Devices: Cane and Walker Review of Systems Review of Systems: All systems reviewed & are unremarkable except as noted in HPI & below Physical Exam Constitutional: WD/WN, vitals as above Eyes: no conjunctival abnormality ENMT: Ears: no hearing impairment and no external ear abnormality Mouth: no oropharynx abnormality Neck: trachea midline Respiratory: + respiratory distress Cardiovascular: Rate/Rhythm: regular rate and regular rhythm Gastrointestinal (Abdomen): At the time of my exam the patient's abdomen was soft with minimal distention. There is no rebound tenderness or guarding. Patient did have some vague/minor abdominal pain in the generalized fashion with palpation. I did not appreciate any hernias. The patient had multiple well-healed laparoscopic incisions and a well-healed midline incision. There were no signs of peritonitis Musculoskeletal: No calf tenderness Skin: no rashes Neurologic: moves all extremities Results & Data Vital Signs (Past 12 Hours) Vital Signs Temp Pulse Resp BP Pulse Ox O2 Del Method 06/11/24 19:37 36.2 C L 70 20 162/92 H 98 Room Air 06/11/24 14:43 37.0 C 65 18 143/85 H 95 Room Air PG Care Time/CCT Total # of Minutes Spent Total Time Spent with Patient: Total time spent is greater than 50% in coordination of care (as documented) at patient's floor/unit and/or counseling patient: Coding Level of Care Code 72688 IN/OBS CONSULT LVL 5,80M Diagnoses Small bowel obstruction K56.609
--- NOTE | 2024-06-12 10:08 | Surgery Progress Note ---
Date of Service June 12, 2024 Assessment & Plan (1) Nausea & vomiting: Plan: Her CT images and results were personally viewed and interpreted by myself She is passing a small amount of flatus, no BM since her knee surgery Sips today Await return of bowel function [facility] to assume care today (2) Abdominal pain: (3) Ileus: Admission and Anticipated Discharge Date Admission Date: June 09, 2024 Subjective Pt seen and examined. Passing a small amount of flatus. No BM. Some nausea, no emesis today. Hemodynamically stable. Review of Systems Constitutional: no fever and no chills Respiratory: no cough and no dyspnea Cardiovascular: no chest pain and no dyspnea on exertion Gastrointestinal: + abdominal pain and + nausea; no vomiti ng Genitourinary: no dysuria and no urinary urgency Musculoskeletal: no back pain and no neck pain Psychiatric: no behavioral changes and no depression Physical Exam Constitutional: WD/WN, vitals as above Respiratory: normal respiratory effort, lungs clear to auscultation Cardiovascular: RRR, no murmur, no edema Gastrointestinal (Abdomen): Inspection/Auscultation: abdomen normal to inspection and + abdomen distended (mild in upper abdomen) Percussion/Palpation: + abdomen tender (mild generalized) and abdomen soft; no guarding Skin: no rashes, warm and dry Neurologic: PERRL, EOMI, accommodation nl, no face palsy, no dysarthria Psychiatric: A+Ox3, euthymic affect Results & Data Vital Signs (Past 12 Hours) Vital Signs Temp Pulse Resp BP Pulse Ox O2 Del Method 06/12/24 07:24 37.1 C 70 18 138/87 93 Room Air PG Care Time/CCT Total # of Minutes Spent Total Time Spent with Patient: Total time spent is greater than 50% in coordination of care (as documented) at patient's floor/unit and/or counseling patient: Coding Level of Care Code 71559 SUB INP/OBS CARE /25MIN Diagnoses Nausea & vomiting R11.2 Abdominal pain R10.9 Ileus K56.7
--- NOTE | 2024-06-12 10:19 | Orthopedic Progress Note ---
Date of Service June 12, 2024 Assessment & Plan (1) Status post revision of total replacement of right knee: (2) Aftercare following left knee joint replacement surgery: Plan 58-year-old woman POD# 3 s/p revision right total knee replacement, doing well overall. Pain is well-controlled. Postop x-rays well-appearing. She is neurologically intact. Patient is dealing with both a small bowel obstruction, which does seem to be slowly resolving, as well as continued orthostatic hypotension. Plan: 1. DVT prophylaxis w/ TEDs, SCDs, ASA 81 mg BID. 2. PT/OT as tolerated. WBAT on the R LE. Encourage heel slides, SLR, full knee extension w/ quad sets. 3. Pain control doing well with current pain regimen. 4. Daily dry dressing changes with gauze over caryn and covered with HOLLY hose. Do not get dressing wet for 5 days postop. 5. Disposition - plan to D/C home w/ [email or web address], but first the SBO and orthostatic hypotension needs to be resolved. 6. F/u 2 weeks post-op w/ orthopedics (Dr. Nelson's team), or as previously scheduled, for first post-op visit. Subjective Patient is POD# 3 s/p revision right total knee arthroplasty by Dr. Nelson on 06/09/2024. Patient says her pain is well-controlled this morning. Denies CP, SOB, N/V, R LE paresthesia, but she is having issues with continued orthostatic hypotension. Additionally, it seems she has developed a small bowel obstruction, for which she has been NPO. She says she is improving a bit and thinks they will allow her to have sips of water soon. She wishes to return home at discharge; she has previously been referred to [email or web address] to receive home therapy. Review of Systems All systems reviewed & are unremarkable except as noted in HPI & below. Physical Exam GENERAL: AA&Ox3, NAD. Pleasant, affect is calm. Sitting on edge of bed and appears comfortable. RESPIRATORY: Normal respiratory effort with no signs of distress. CHEST/AXILLA: Chest movement symmetrical. No deformities noted. CARDIOVASCULAR: No edema noted. SKIN: [place], warm and dry. MS/EXTREMITY: Knee dressing mostly intact with dry gauze, but with some caryn exposed under the HOLLY hose and some mild dried serosanguineous saturation noted. HOLLY hose donned to contralateral LE. + ankle dorsi/plantarflexion. NVI distally. Calf soft/NT. PT/DP pulses intact, 2+. Able to SLR without assistance. Results & Data Results & Data Laboratory Results . 06/09/24 12:03 Gram Stain - Final Synovial Fluid Aerobic and Anaerobic Culture - Preliminary No growth to date. 06/12/24 06/11/24 10:51 20:16 WBC 8.72 9.29 RBC 3.12 L 3.57 L Hgb 9.3 L 10.5 L Hct 27.4 L 30.8 L MCV 87.8 86.3 MCH 29.8 29.4 MCHC 33.9 34.1 RDW Std Deviation 51.3 H 51.0 H RDW Coeff of Zahida 16.0 H 16.0 H Plt Count 233 236 MPV 9.2 L 9.4 Immature Gran % (Auto) 0.8 0.4 Neut % (Auto) 84.8 85.6 Lymph % (Auto) 7.5 6.5 [place] % (Auto) 6.7 6.7 Eos % (Auto) 0.1 0.6 Baso % (Auto) 0.1 0.2 Neut # (Auto) 7.40 H 7.95 H Lymph # (Auto) 0.65 L 0.60 L [place] # (Auto) 0.58 0.62 H Eos # (Auto) 0.01 0.06 Baso # (Auto) 0.01 0.02 Immature Gran # (Auto) 0.07 0.04 PT 10.3 INR 0.9 Sodium 134 L 132 L Potassium 4.7 4.0 Chloride 98 95 L Carbon Dioxide 32 30 Anion Gap 4 7 BUN 14 11 Creatinine 0.54 L 0.57 L Est Cr Clr Drug Dosing 112.3 106.4 eGFR 106.65 105.27 BUN/Creatinine Ratio 25.9 H 19.3 Glucose 121 H 142 H Lactate 1.1 Calcium 8.8 9.4 Phosphorus 3.9 Magnesium 2.1 2.0 Total Bilirubin 0.6 0.7 AST 19 19 ALT 10 10 Alkaline Phosphatase 94 105 H Total Protein 6.0 6.4 Albumin 3.6 3.8 Globulin 2.4 L 2.6 Albumin/Globulin Ratio 1.5 1.5 Diagnostic Findings . PG Care Time/CCT Total # of Minutes Spent Total Time Spent with Patient: Total time spent is greater than 50% in coordination of care (as documented) at patient's floor/unit and/or counseling patient: [place] [address] SUB INP/OBS CARE 2/35MIN Patient Type Established History Detailed Exam Expanded Problem Focused Medical Decision Making Low Complexity Diagnoses Status post revision of total replacement of right knee Z96.651 Aftercare following left knee joint replacement surgery Z47.1; Z96.652
[2024-06-12 11:06] LABS: Basophils # (auto) 0.01 K/uL (0.00-0.20); Basophils % (auto) 0.1 %; Eosinophils # (auto) 0.01 K/uL (0.00-0.50); Eosinophils % (auto) 0.1 %; Hematocrit (blood only) 27.4 % (37.0-47.0); Hemoglobin 9.3 g/dl (12.0-16.0); Immature Granulocytes # (auto) 0.07 K/uL (0.01-0.20); Immature Granulocytes % (auto) 0.8 %; Lymphocytes # (auto) 0.65 K/uL (1.20-3.40); Lymphocytes % (auto) 7.5 %; Mean Corpuscular Hemoglobin 29.8 pg (25.0-34.0); Mean Corpuscular Hgb Conc 33.9 g/dL (32.0-36.0); Mean Corpuscular Volume 87.8 fL (80.0-100.0); Mean Platelet Volume 9.2 fL (9.4-12.4); Monocytes # (auto) 0.58 K/uL (0.11-0.59); Monocytes % (auto) 6.7 %; Neutrophils % (auto) 84.8 %; Platelet Count 233 K/uL (130-400); RDW Standard Deviation 51.3 fL (36.4-46.3); Red Blood Count 3.12 M/uL (4.20-5.40); White Blood Count 8.72 K/ul (4.8-10.8)
[2024-06-12 11:24] LABS: Albumin Globulin Ratio 1.5 (0.9-2); Albumin Level 3.6 gm/dl (3.4-5.0); BUN Creatinine Ratio 25.9 (10-20); Bilirubin,Total 0.6 mg/dl (0.2-1.0); Calcium 8.8 mg/dl (8.6-10.3); Creatinine Clr Calc Pharmacy 112.3 ml/min; Globulin 2.4 gm/dl (2.5-4.0); Magnesium 2.1 mg/dl (1.7-2.4); Phosphorus 3.9 mg/dl (2.5-4.9); Potassium 4.7 mmol/L (3.5-5.1)
[2024-06-12] MEDS: cephALEXin 500 MG CAP PO SCH (17:16)
--- NOTE | 2024-06-12 19:07 | Hospitalist Progress Note ---
Date of Service June 12, 2024 Assessment & Plan (1) Small bowel obstruction: (2) Hypotension: (3) Hx of gastric bypass: (4) Status post revision of total replacement of right knee: Plan 58 yo female PMHx anxiety/depression, gastric bypass, SOB s/p bowel resection, POD 2 s/p R total knee revision. #SBO/H/o Gastric bypass-had acute onset of abd pain, nausea on 06/11--> CT AP w/ IV demonstrates repeat SBO. Had a SBO requiring surgery and repair of incisional hernia at [facility] in fall 2023. passing small amounts of flatus now, no BM. Surgery following, no NGT placed -advance diet to sips and chips -await return of bowel function but with good BS now, no tenderness, suspect will occur soon -continue LR maintenance fluids -check CBC, BMP, mag in AM -hold most po meds except psych meds -avid NSAIDs and ASA with gastric bypass #Orthostatic hypotension-related to hypovolemia and acute blood loss anemia-hgb dropped to 9 from 12, wasn't tolerating po from SBO. Now resolved after IVF bboluses -continue maintenance IVFs #Acute blood loss anemia-hgb down to 9.5 from 12.5, with hypotension now resolved -hold ferrous sulfate as can worsen ileus/constipation -follow CBC #Hyponatremia-Na+ 132 with hypovolemia/dehydration and now imprved to 134 after IVFs -follow BMP -continue IVFs #Depression/anxiety-no acute issues -contnue home bupropion and duloxetine #Knee revision of TKA/Inflammatory juajmaqtk-qtuw-hi care as per Ortho. Unclear diagnosis for why she is on Plaquenil but is prescribed by a Sports Book Board Attendant. No notes to review -recommend holding hydroxychloroquine until healed up from knee surgery -pain control, keflex as per Ortho -Mani Ryder, and will change ASA to Xarelto low dose (once out of [place] for surgery for SBO) for DVT prophylaxis-avoid ASA given h/o gastric bypass- discussed with Ortho DVT proph-Mani, Immanuel, dc ASA bid and add Xarelto likely tomorrow Dispo-continued stay, hospitalist service will follow Admission and Anticipated Discharge Date Admission Date: June 12, 2024 Subjective Passing small amount of flatus, no BM, denies abd pain or nausea. No CP,SPB, lightheadedness. Has been ambulating halls with PT and no hypotension. Pain in right knee controlled. I discussed her care with Dr. Nelson of Orthopedic surgery regarding her DVT prophylaxis Physical Exam Constitutional: WD/WN, vitals as above Respiratory: normal respiratory effort, lungs clear to auscultation Cardiovascular: RRR, no murmur, no edema Gastrointestinal (Abdomen): normal bowel sounds, soft, nontender, no hepatosplenomegaly Musculoskeletal: Extremities: + extremities abnormal to inspection (right knee dressing c/d/i, +effusion) Psychiatric: A+Ox3, euthymic affect Results & Data Results & Data Vital Signs (Past 12 Hours) Vital Signs Temp Pulse Resp BP Pulse Ox O2 Del Method 06/12/24 14:59 37.0 C 83 18 131/79 95 Room Air 06/12/24 07:24 37.1 C 70 18 138/87 93 Room Air Laboratory Results CBC, CMP, magnesium, phos reviewed PG Care Time/CCT Total # of Minutes Spent Total Time Spent with Patient: Total time spent is greater than 50% in coordination of care (as documented) at patient's floor/unit and/or counseling patient: Coding Level of Care Code 44359 SUB INP/OBS CARE 2/35MIN Diagnoses Small bowel obstruction K56.609 Hypotension I95.9 Hx of gastric bypass Z98.84 Status post revision of total replacement of right knee Z96.651
[2024-06-13] MEDS: LACTATED RINGER'S 1,000 ML IV SCH (00:47)
--- NOTE | 2024-06-13 05:08 | Billing Data ---
Date of Service June 13, 2024 Coding Level of Care Code 21391 IN/OBS CONSULT LVL 3,45M
[2024-06-13 07:19] LABS: Basophils # (auto) 0.02 K/uL (0.00-0.20); Basophils % (auto) 0.3 %; Eosinophils # (auto) 0.05 K/uL (0.00-0.50); Eosinophils % (auto) 0.7 %; Immature Granulocytes # (auto) 0.05 K/uL (0.01-0.20); Immature Granulocytes % (auto) 0.7 %; Lymphocytes # (auto) 0.87 K/uL (1.20-3.40); Lymphocytes % (auto) 12.5 %; Mean Corpuscular Hgb Conc 33.3 g/dL (32.0-36.0); Mean Corpuscular Volume 89.9 fL (80.0-100.0); Mean Platelet Volume 9.6 fL (9.4-12.4); Monocytes # (auto) 0.51 K/uL (0.11-0.59); Monocytes % (auto) 7.3 %; Neutrophils # (auto) 5.46 K/uL (1.40-6.50); Neutrophils % (auto) 78.5 %; Platelet Count 218 K/uL (130-400); RDW Standard Deviation 53.1 fL (36.4-46.3); Red Blood Count 2.67 M/uL (4.20-5.40); White Blood Count 6.96 K/ul (4.8-10.8)
[2024-06-13 07:33] LABS: BUN Creatinine Ratio 25.5 (10-20); Creatinine Clr Calc Pharmacy 129.1 ml/min; Magnesium 2.1 mg/dl (1.7-2.4); Phosphorus 3.6 mg/dl (2.5-4.9); Potassium 4.3 mmol/L (3.5-5.1)
--- NOTE | 2024-06-13 10:05 | Surgery Progress Note ---
Date of Service June 13, 2024 Assessment & Plan (1) Small bowel obstruction: (2) Ileus: Plan avss +flatus abdominal pain resolved Plan: Okay to advance to clear liquids ambulate continue medical management will follow along Discussed with Dr. De La Torre who agrees with above Admission and Anticipated Discharge Date Admission Date: June 12, 2024 Subjective feeling better passing more gas, slight smear of stool when wiping no n,v, belching, bloating feeling slightly hungry today ambulating no abdominal pain Physical Exam Constitutional: WD/WN, vitals as above cooperative and comfortable; no acute distress and not ill appearing Gastrointestinal (Abdomen): Inspection/Auscultation: abdomen normal to inspection and + abdominal surgical scar (midline laparotomy, laparoscopic); abdomen not distended Percussion/Palpation: abdomen soft; abdomen nontender, no guarding and abdomen not rigid Skin: no rashes, warm and dry Psychiatric: Orientation: alert and oriented x 3 Results & Data Vital Signs (Past 12 Hours) Vital Signs Temp Pulse Pulse Resp BP Pulse Ox O2 Del Method 06/13/24 07:47 36.5 C 71 16 132/80 96 Room Air 06/13/24 07:46 36.5 C 71 16 132/80 96 Room Air Laboratory Results 06/13/24 06/12/24 Range/Units 06:53 10:51 WBC 6.96 8.72 (4.8-10.8) K/ul RBC 2.67 L 3.12 L (4.20-5.40) M/uL Hgb 8.0 L 9.3 L (12.0-16.0) g/dl Hct 24.0 L 27.4 L (37.0-47.0) % MCV 89.9 87.8 (80.0-100.0) fL MCH 30.0 29.8 (25.0-34.0) pg MCHC 33.3 33.9 (32.0-36.0) g/dL RDW Std Deviation 53.1 H 51.3 H (36.4-46.3) fL RDW Coeff of Zahida 16.0 H 16.0 H (11.5-14.5) % Plt Count 218 233 (130-400) K/uL MPV 9.6 9.2 L (9.4-12.4) fL Immature Gran % (Auto) 0.7 0.8 % Neut % (Auto) 78.5 84.8 % Lymph % (Auto) 12.5 7.5 % [place] % (Auto) 7.3 6.7 % Eos % (Auto) 0.7 0.1 % Baso % (Auto) 0.3 0.1 % Neut # (Auto) 5.46 7.40 H (1.40-6.50) K/uL Lymph # (Auto) 0.87 L 0.65 L (1.20-3.40) K/uL [place] # (Auto) 0.51 0.58 (0.11-0.59) K/uL Eos # (Auto) 0.05 0.01 (0.00-0.50) K/uL Baso # (Auto) 0.02 0.01 (0.00-0.20) K/uL Immature Gran # (Auto) 0.05 0.07 (0.01-0.20) K/uL Sodium 135 L 134 L (136-145) mmol/L Potassium 4.3 4.7 (3.5-5.1) mmol/L Chloride 101 98 (98-107) mmol/L Carbon Dioxide 31 32 (21-32) mmol/L Anion Gap 3 4 (3-11) BUN 12 14 (6-23) mg/dl Creatinine 0.47 L 0.54 L (0.6-1.2) mg/dl Est Cr Clr Drug Dosing 129.1 112.3 ml/min eGFR 110.28 106.65 BUN/Creatinine Ratio 25.5 H 25.9 H (10-20) Glucose 94 121 H (70-99(Fasting)) mg/dl Calcium 8.0 L 8.8 (8.6-10.3) mg/dl Phosphorus 3.6 3.9 (2.5-4.9) mg/dl Magnesium 2.1 2.1 (1.7-2.4) mg/dl Total Bilirubin 0.6 (0.2-1.0) mg/dl AST 19 (13-39) U/L ALT 10 (7-52) U/L Alkaline Phosphatase 94 (34-104) U/L Total Protein 6.0 (6.0-8.3) gm/dl Albumin 3.6 (3.4-5.0) gm/dl Globulin 2.4 L (2.5-4.0) gm/dl Albumin/Globulin Ratio 1.5 (0.9-2)
--- NOTE | 2024-06-13 10:11 | Hospitalist Progress Note ---
Date of Service June 13, 2024 Assessment & Plan (1) Small bowel obstruction: (2) Acute blood loss anemia: (3) Status post revision of total replacement of right knee: (4) Rheumatoid arthritis: Plan 58 yo female PMHx anxiety/depression, gastric bypass, SOB s/p bowel resection, h ere s/p R total knee revision with recurrent SBO, hypotension. #SBO/H/o Gastric bypass-had acute onset of abd pain, nausea on 06/11--> CT AP w/ IV demonstrates repeat SBO. Had a SBO requiring surgery and repair of incisional hernia at [facility] in fall 2023. Continues to be passing flatus and had a smear of brown stool AM of 06/13. Surgery following, no NGT placed -advance diet to clears, await BM -continue ambulation -continue LR maintenance fluids through end of current bag and then stop -follow CBC, BMP, mag in AM and replace lytes as needed-none needed today -holding most po meds except psych meds and -avoid NSAIDs and ASA with gastric bypass #Orthostatic hypotension-related to hypovolemia and acute blood loss anemia-hgb dropped to 8 from 12, wasn't tolerating po from SBO. Now resolved after IVF boluses and BPs now normal, not lightheaded with ambulating -dc IVFs #Acute blood loss anemia on chronic anemia-hgb down further to 8.0 from preop 12.5, with hypotension now resolved. Hemodilutional now as no evidence of bleeding from anywhere and hemodynamically stable -hold ferrous sulfate as can worsen ileus/constipation. Has received IV iron in the past. With h/o gastric bypass, at risk for nutritional deficiencies. Also with RA and could have some anemia of chrnic disease -follow CBC -check B12, folate, Fe studies, TSH #Hyponatremia-Na+ 132 with hypovolemia/dehydration and now improved to 135 after IVFs -follow BMP -dc IVFs #Depression/anxiety-no acute issues -continue home bupropion and duloxetine #Knee revision of TKA/RA-post-op care as per Ortho. Started on Plaquenil by Imp[employer] Associate about 2 mo ago for new dx of RA and with plans to start MTX in future -recommend holding hydroxychloroquine until healed up from knee surgery-about 2 weeks -pain control, keflex as per Ortho -HOLLY agudelo, SCDs, and start low dose Xarelto for DVT prophylaxis-avoid ASA given h/o gastric bypass-discussed with Ortho DVT proph-SCDs, TEDs, Xarelto 10mg daily x 2 weeks Dispo-continued stay, hospitalist service will follow Admission and Anticipated Discharge Date Admission Date: June 12, 2024 Subjective Patient feeling better today. Denies nausea or abdominal pain. She is passing flatus and had a small smear of stool on her toilet paper this morning. Pain in knee is controlled. We discussed that she recently was diagnosed with rheumatoid arthritis and has been on hydroxychloroquine. Physical Exam Constitutional: WD/WN, vitals as above Respiratory: normal respiratory effort, lungs clear to auscultation Cardiovascular: RRR, no murmur, no edema Gastrointestinal (Abdomen): normal bowel sounds, soft, nontender, no hepatosplenomegaly Musculoskeletal: Extremities: + extremities abnormal to inspection (right knee dressing c/d/i, +effusion) Psychiatric: A+Ox3, euthymic affect Results & Data Results & Data Vital Signs (Past 12 Hours) Vital Signs Temp Pulse Pulse Resp BP Pulse Ox O2 Del Method 06/13/24 07:47 36.5 C 71 16 132/80 96 Room Air 06/13/24 07:46 36.5 C 71 16 132/80 96 Room Air Laboratory Results CBC, BMP, magnesium, phosphorus, synovial fluid culture reviewed PG Care Time/CCT Total # of Minutes Spent Total Time Spent with Patient: Total time spent is greater than 50% in coordination of care (as documented) at patient's floor/unit and/or counseling patient: Coding Level of Care Code 66062 SUB INP/OBS CARE 2/35MIN Diagnoses Small bowel obstruction K56.609 Acute blood loss anemia D62 Status post revision of total replacement of right knee Z96.651 Rheumatoid arthritis M06.9
[2024-06-13] MEDS: RIVAROXABAN 10 MG TABLET PO SCH (11:07)
--- NOTE | 2024-06-13 11:09 | Orthopedic Progress Note ---
Date of Service June 13, 2024 Assessment & Plan (1) Status post revision of total replacement of right knee: Plan: 58-year-old female now postop day 4 from a revision total knee arthroplasty complicated by an ileus. She seems to be improving. No further emesis. She is not feeling ill. Pains controlled. She is having some flatus. No bowel movement yet. Plan: She is going to continue physical therapy and medical management of for her ileus. This starting to advance her diet. Continue DVT prophylaxis including thigh-high teds, SCDs, and conversion likely to Xarelto. Will advance her diet hopefully today. Hopefully she will be ready for dischar ge tomorrow. She is anemic but without symptoms. No further signs of blood loss. Pains controlled on current pain regimen. Would really not take much at all in the way of narcotics. (2) Ileus: (3) Acute blood loss anemia: Admission and Anticipated Discharge Date Admission Date: June 12, 2024 Subjective 58-year-old female postop day 4 from a right total knee replacement revision. This been complicated by ileus/small bowel obstruction. She is doing quite bit better today. Has not had any emesis for couple days. The dizziness is resolved. No chest pain or shortness of breath. Really not have much knee pain. She is having some flatus. No bowel movement to date. Physical Exam Physical Exam: Physical nation was a pleasant middle-aged female. As she is lying in bed looks quite good this morning. Examination of the right leg reveals the dressing be clean dry and intact. Just slight bit of drainage. She can do a good straight leg raise. She can dorsiflex and plantarflex her foot appropriately. Results & Data Vital Signs (Past 12 Hours) Vital Signs Temp Pulse Pulse Resp BP Pulse Ox O2 Del Method 06/13/24 07:47 36.5 C 71 16 132/80 96 Room Air 06/13/24 07:46 36.5 C 71 16 132/80 96 Room Air Laboratory Results Hemoglobin is 8.0. Hematocrit is 24.0. Electrolytes are stable. Creatinine 0.47.
[2024-06-13 11:41] LABS: Thyroid Stimulating Hormone 1.542 uIu/ml (0.300-4.500)
[2024-06-13 11:47] LABS: Ferritin 258.9 ng/ml (8-388)
[2024-06-13 12:07] LABS: Folate (Folic Acid),Ser orPlas > 22.30 ng/ml (>5.38)
[2024-06-13 12:08] LABS: Vitamin B12 744 pg/ml (180-914)
[2024-06-14] MEDS: IRON SUCROSE 300 MG in SODIUM CHLORIDE 0.9% 250 ML IV SCH (07:32)
[2024-06-14 08:07] LABS: Basophils # (auto) 0.02 K/uL (0.00-0.20); Basophils % (auto) 0.4 %; Eosinophils % (auto) 1.8 %; Hematocrit (blood only) 24.4 % (37.0-47.0); Hemoglobin 8.1 g/dl (12.0-16.0); Immature Granulocytes # (auto) 0.04 K/uL (0.01-0.20); Immature Granulocytes % (auto) 0.7 %; Lymphocytes # (auto) 1.08 K/uL (1.20-3.40); Lymphocytes % (auto) 19.3 %; Mean Corpuscular Hemoglobin 29.6 pg (25.0-34.0); Mean Corpuscular Hgb Conc 33.2 g/dL (32.0-36.0); Mean Corpuscular Volume 89.1 fL (80.0-100.0); Mean Platelet Volume 9.2 fL (9.4-12.4); Monocytes # (auto) 0.36 K/uL (0.11-0.59); Monocytes % (auto) 6.4 %; Neutrophils % (auto) 71.4 %; Platelet Count 278 K/uL (130-400); RDW Coefficient of Variation 15.6 % (11.5-14.5); RDW Standard Deviation 49.9 fL (36.4-46.3); Red Blood Count 2.74 M/uL (4.20-5.40)
[2024-06-14 08:11] LABS: Calcium 7.9 mg/dl (8.6-10.3); Creatinine Clr Calc Pharmacy 127.5 ml/min; Potassium 3.7 mmol/L (3.5-5.1)
[2024-06-14] MEDS ORDERED: ERGOCALCIFEROL 1250 MCG (50,000 UNITS) CAP PO SCH (09:00)
[2024-06-14] MEDS: bisacodyL 10 MG SUPP PR STA (09:44)
--- NOTE | 2024-06-14 09:52 | Surgery Progress Note ---
Date of Service June 14, 2024 Assessment & Plan (1) Small bowel obstruction: (2) Ileus: Plan avss +flatus abdominal pain resolved slowly improving Plan: Dulcolax suppository today can likely advance to full liquids later today encouraged patient to ambulate more to increase GI motility. Discussed with patient that her examination is benign and no concern of bowel ischemia/volvus similar to her last SBO. She is very worried she is going to have to need another surgery or have bowel given her history as well as her sister have small bowel ischemia and required small bowel transplant. Discussed she likely has distal SBO due to scar tissue along with slight ileus due to her orthopedic surgery and her return of bowel function will likely be slower than if she were just being treated for SBO continue medical management will follow along Discussed with Dr. De La Torre who agrees with above Admission and Anticipated Discharge Date Admission Date: June 12, 2024 Subjective anxious, concerned/worried she is going to have same thing happen to her in December of last no abdominal pain no n,v feeling less bloated today tolerated clear liquids continuing to pass gas, no bowel movement yet, last bm Wednesday morning, usually goes every few days no fever, chills Physical Exam Constitutional: WD/WN, vitals as above cooperative and comfortable; no acute distress and not ill appearing Respiratory: normal respiratory effort; no respiratory distress Gastrointestinal (Abdomen): Inspection/Auscultation: abdomen normal to inspection and + abdominal surgical scar (midline laparotomy scar, laparoscopic scars); abdomen not distended Percussion/Palpation: abdomen soft; abdomen nontender, no guarding, abdomen not rigid and abdomen not firm Skin: no rashes, warm and dry Psychiatric: A+Ox3, euthymic affect Results & Data Vital Signs (Past 12 Hours) Vital Signs Temp Pulse Resp BP Pulse Ox O2 Del Method 06/14/24 08:00 36.8 C 70 16 122/75 95 Room Air Laboratory Results 06/14/24 06/13/24 Range/Units 07:21 06:53 WBC 5.60 (4.8-10.8) K/ul RBC 2.74 L (4.20-5.40) M/uL Hgb 8.1 L (12.0-16.0) g/dl Hct 24.4 L (37.0-47.0) % MCV 89.1 (80.0-100.0) fL MCH 29.6 (25.0-34.0) pg MCHC 33.2 (32.0-36.0) g/dL RDW Std Deviation 49.9 H (36.4-46.3) fL RDW Coeff of Zahida 15.6 H (11.5-14.5) % Plt Count 278 (130-400) K/uL MPV 9.2 L (9.4-12.4) fL Immature Gran % (Auto) 0.7 % Neut % (Auto) 71.4 % Lymph % (Auto) 19.3 % [place] % (Auto) 6.4 % Eos % (Auto) 1.8 % Baso % (Auto) 0.4 % Neut # (Auto) 4.00 (1.40-6.50) K/uL Lymph # (Auto) 1.08 L (1.20-3.40) K/uL [place] # (Auto) 0.36 (0.11-0.59) K/uL Eos # (Auto) 0.10 (0.00-0.50) K/uL Baso # (Auto) 0.02 (0.00-0.20) K/uL Immature Gran # (Auto) 0.04 (0.01-0.20) K/uL Sodium 137 (136-145) mmol/L Potassium 3.7 (3.5-5.1) mmol/L Chloride 102 (98-107) mmol/L Carbon Dioxide 31 (21-32) mmol/L Anion Gap 4 (3-11) BUN 8 (6-23) mg/dl Creatinine 0.47 L (0.6-1.2) mg/dl Est Cr Clr Drug Dosing 127.5 ml/min eGFR 109.60 BUN/Creatinine Ratio 17.0 (10-20) Glucose 91 (70-99(Fasting)) mg/dl Calcium 7.9 L (8.6-10.3) mg/dl Magnesium 2.0 (1.7-2.4) mg/dl Iron 16 L (35-150) mcg/dl TIBC 244 L (250-450) mcg/dl Transferrin 174 L (200-360) mg/dl Transferrin % Sat 7 L (15-50) % Ferritin 258.9 (8-388) ng/ml Vitamin B12 744 (180-914) pg/ml Folate > 22.30 (>5.38) ng/ml TSH 1.542 (0.300-4.500) uIu/ml
--- NOTE | 2024-06-14 17:48 | Hospitalist Progress Note ---
Date of Service June 14, 2024 Assessment & Plan (1) Small bowel obstruction: (2) Acute blood loss anemia: (3) Status post revision of total replacement of right knee: (4) Rheumatoid arthritis: Plan 58 yo female PMHx anxiety/depression, gastric bypass, SOB s/p bowel resection, h ere s/p R total knee revision with recurrent SBO, hypotension. #SBO/H/o Gastric bypass-had acute onset of abd pain, nausea on 06/11--> CT AP w/ IV demonstrates repeat SBO. Had a SBO requiring surgery and repair of incisional hernia at [facility] in fall 2023. Now having small BMs, passing flatus, no abd pain or nausea. Surgery following, no NGT placed -advance diet to full liquids and possibly to low fiber on 06/15 -add Miralax -continue ambulation -follow CBC, BMP, mag in AM and replace lytes as needed-none needed today -resume rest of home po meds -avoid NSAIDs and ASA with gastric bypass #Orthostatic hypotension-related to hypovolemia and acute blood loss anemia-hgb dropped to 8 from 12, wasn't tolerating po from SBO. Now resolved after IVF boluses and BPs now normal, not lightheaded with ambulating -dc IVFs #Acute blood loss anemia on chronic anemia-hgb down to 8.1 from preop 12.5, with hypotension now resolved. Hemodilutional now as no evidence of bleeding from anywhere and hemodynamically stable B12, folate, TSH all normal Transferrin sat low at 7% -Received Venofer IV x 1 -give another dose tomorrow -hold ferrous sulfate as can worsen ileus/constipation. Has received IV iron in the past. With h/o gastric bypass, at risk for nutritional deficiencies. Also with RA and could have some anemia of chronic disease -follow CBC #Hyponatremia-Na+ 132 with hypovolemia/dehydration and now normal after IVFs -follow BMP #Depression/anxiety-no acute issues -continue home bupropion and duloxetine #Knee revision of TKA/RA-post-op care as per Ortho. Started on Plaquenil by Treasury Director about 2 mo ago for new dx of RA and with plans to start MTX in future -recommend holding hydroxychloroquine until healed up from knee surgery-about 2 weeks -pain control, keflex now discontinued per Ortho -HOLLY agudelo, SCDs, and start low dose Xarelto for DVT prophylaxis-avoid ASA given h/o gastric bypass-discussed with Ortho DVT proph-SCDs, TEDs, Xarelto 10mg daily x 2 weeks Dispo-continued stay, hospitalist service will follow, possible discharge to home tomorrow Admission and Anticipated Discharge Date Admission Date: June 12, 2024 Subjective Pt passing flatus and had 2 small BMs today. Tolerating clears diet and denies abd pain or nausea. Has been ambulating. No bleeding from anywhere. Feels her legs are swollen Physical Exam Constitutional: WD/WN, vitals as above Respiratory: normal respiratory effort, lungs clear to auscultation Cardiovascular: RRR, no murmur, no edema Gastrointestinal (Abdomen): normal bowel sounds, soft, nontender, no hepatosplenomegaly Musculoskeletal: Extremities: + extremities abnormal to inspection (right knee dressing c/d/i, +effusion) Psychiatric: A+Ox3, euthymic affect Results & Data Results & Data Vital Signs (Past 12 Hours) Vital Signs Temp Pulse Pulse Resp BP Pulse Ox O2 Del Method 06/14/24 15:09 36.8 C 66 16 138/86 98 Room Air 06/14/24 08:00 36.8 C 70 16 122/75 95 Room Air Laboratory Results CBC, BMP, synovial fluid cx reviewed PG Care Time/CCT Total # of Minutes Spent Total Time Spent with Patient: Total time spent is greater than 50% in coordination of care (as documented) at patient's floor/unit and/or counseling patient: Coding Level of Care Code 95291 SUB INP/OBS CARE 2/35MIN Diagnoses Small bowel obstruction K56.609 Acute blood loss anemia D62 Status post revision of total replacement of right knee Z96.651 Rheumatoid arthritis M06.9
[2024-06-14] MEDS: POLYETHYLENE (MIRALAX) 17 GM PACK PO SCH (17:59)
--- NOTE | 2024-06-14 18:29 | Orthopedic Progress Note ---
Date of Service June 14, 2024 Assessment & Plan (1) Status post revision of total replacement of right knee: Plan: 59-year-old female now 5 days out from a revision knee arthroplasty doing well from the orthopedic standpoint. She had an ileus which seems to be improving. She is extremely afraid of recurrent bowel obstruction like she had previously. Plan: Working continue gradual progression of her p.o. intake. Continue therapy. She is got a hold of our narcotics as her knee is not really painful. Tylenol for pain. Medical management as per the medicine service. Hopefully discharge in the next day or 2. She has been switched to Xarelto for DVT prophylaxis due to her gastric bypass surgery and GI issues. (2) Acute blood loss anemia: (3) Small bowel obstruction: (4) Ileus: Admission and Anticipated Discharge Date Admission Date: June 12, 2024 Subjective 59-year-old female 5 days out from revision total knee arthroplasty complicated by ileus. She is doing quite a bit better. She feels well. Still has not had a bowel movement. There really not much pain and just taken Tylenol for pain. She is drank some clear liquids. Still has not eaten much solid.Human abdominal pain. She has had some flatus but no bowel movement. Physical Exam Physical Exam: Physical nation was a pleasant middle-age female. She is sitting on bed looks comfortable. Examination of the right leg reveals leg to be well aligned. Just a little bit of drainage on her dressing. She can do a straight leg raise. She is neurologically intact. Gastrointestinal (Abdomen): Abdominal exam reveals her abdomen be soft. There is no tenderness to palpation. Seems to have good bowel sounds. Results & Data Vital Signs (Past 12 Hours) Vital Signs Temp Pulse Pulse Resp BP Pulse Ox O2 Del Method 06/14/24 15:09 36.8 C 66 16 138/86 98 Room Air 06/14/24 08:00 36.8 C 70 16 122/75 95 Room Air Laboratory Results Hemoglobin is 8.1. Macro 24.4. Electrolytes are stable.
[2024-06-15 07:35] LABS: Basophils # (auto) 0.03 K/uL (0.00-0.20); Basophils % (auto) 0.6 %; Eosinophils # (auto) 0.15 K/uL (0.00-0.50); Eosinophils % (auto) 2.9 %; Hematocrit (blood only) 23.4 % (37.0-47.0); Hemoglobin 7.8 g/dl (12.0-16.0); Immature Granulocytes # (auto) 0.12 K/uL (0.01-0.20); Immature Granulocytes % (auto) 2.4 %; Lymphocytes # (auto) 1.08 K/uL (1.20-3.40); Lymphocytes % (auto) 21.2 %; Mean Corpuscular Hemoglobin 29.5 pg (25.0-34.0); Mean Corpuscular Hgb Conc 33.3 g/dL (32.0-36.0); Mean Corpuscular Volume 88.6 fL (80.0-100.0); Mean Platelet Volume 9.2 fL (9.4-12.4); Monocytes # (auto) 0.42 K/uL (0.11-0.59); Monocytes % (auto) 8.3 %; Neutrophils # (auto) 3.29 K/uL (1.40-6.50); Neutrophils % (auto) 64.6 %; Nucleated RBC # (auto) 0.04 K/uL (0.00-0.12); Nucleated RBC % (auto) 0.8 %; Platelet Count 280 K/uL (130-400); RDW Coefficient of Variation 15.4 % (11.5-14.5); RDW Standard Deviation 49.5 fL (36.4-46.3); Red Blood Count 2.64 M/uL (4.20-5.40); White Blood Count 5.09 K/ul (4.8-10.8)
[2024-06-15 08:00] LABS: BUN Creatinine Ratio 10.9 (10-20); Calcium 7.7 mg/dl (8.6-10.3); Creatinine Clr Calc Pharmacy 130.3 ml/min; Potassium 3.4 mmol/L (3.5-5.1)
[2024-06-15 08:04] LABS: Hypochromasia Present; Polychromasia 1+
[2024-06-15 08:35] VITALS: BP 149/93; PULSE 87; RESP 16; TEMP 98.1; O2SAT 98
--- NOTE | 2024-06-15 09:10 | Surgery Progress Note ---
Date of Service June 15, 2024 Assessment & Plan (1) Small bowel obstruction: (2) Ileus: Plan avss +flatus and bowel movements abdominal pain resolved Plan: advance to low fiber diet encouraged to continue ambulation to increase GI motility even at discharge continue medical/orthopedic management our services signing off, call with questions/concerns Discussed with Dr. De La Torre who agrees with above Admission and Anticipated Discharge Date Admission Date: June 12, 2024 Subjective feeling well has had 3 bowel movements continuing to pass gas tolerated full liquids no abdominal pain, bloating, belching, nausea Physical Exam Constitutional: WD/WN, vitals as above cooperative and comfortable; no acute distress and not ill appearing Respiratory: normal respiratory effort; no respiratory distress Gastrointestinal (Abdomen): Inspection/Auscultation: abdomen normal to inspection and + abdominal surgical scar (laparoscopic and midline laparotomy scars); abdomen not distended Percussion/Palpation: abdomen soft; abdomen nontender, no guarding, abdomen not rigid and abdomen not firm Skin: no rashes, warm and dry Psychiatric: A+Ox3, euthymic affect Results & Data Vital Signs (Past 12 Hours) Vital Signs Temp Pulse Resp BP Pulse Ox O2 Del Method 06/15/24 07:00 36.7 C 87 16 149/93 H 98 Room Air Laboratory Results 06/15/24 Range/Units 06:50 WBC 5.09 (4.8-10.8) K/ul RBC 2.64 L (4.20-5.40) M/uL Hgb 7.8 L (12.0-16.0) g/dl Hct 23.4 L (37.0-47.0) % MCV 88.6 (80.0-100.0) fL MCH 29.5 (25.0-34.0) pg MCHC 33.3 (32.0-36.0) g/dL RDW Std Deviation 49.5 H (36.4-46.3) fL RDW Coeff of Zahida 15.4 H (11.5-14.5) % Plt Count 280 (130-400) K/uL MPV 9.2 L (9.4-12.4) fL Immature Gran % (Auto) 2.4 % Neut % (Auto) 64.6 % Lymph % (Auto) 21.2 % [place] % (Auto) 8.3 % Eos % (Auto) 2.9 % Baso % (Auto) 0.6 % Neut # (Auto) 3.29 (1.40-6.50) K/uL Lymph # (Auto) 1.08 L (1.20-3.40) K/uL [place] # (Auto) 0.42 (0.11-0.59) K/uL Eos # (Auto) 0.15 (0.00-0.50) K/uL Baso # (Auto) 0.03 (0.00-0.20) K/uL Immature Gran # (Auto) 0.12 (0.01-0.20) K/uL Absolute Nucleated RBC 0.04 (0.00-0.12) K/uL Nucleated RBC % (auto) 0.8 % Polychromasia 1+ Hypochromasia Present Sodium 139 (136-145) mmol/L Potassium 3.4 L (3.5-5.1) mmol/L Chloride 103 (98-107) mmol/L Carbon Dioxide 31 (21-32) mmol/L Anion Gap 5 (3-11) BUN 5 L (6-23) mg/dl Creatinine 0.46 L (0.6-1.2) mg/dl Est Cr Clr Drug Dosing 130.3 ml/min eGFR 110.17 BUN/Creatinine Ratio 10.9 (10-20) Glucose 91 (70-99(Fasting)) mg/dl Calcium 7.7 L (8.6-10.3) mg/dl
--- NOTE | 2024-06-15 10:29 | Hospitalist Progress Note ---
Date of Service June 15, 2024 Assessment & Plan (1) Small bowel obstruction: (2) Acute blood loss anemia: (3) Status post revision of total replacement of right knee: (4) Rheumatoid arthritis: Plan 58 yo female PMHx anxiety/depression, gastric bypass, SOB s/p bowel resection, h ere s/p R total knee revision with recurrent SBO, hypotension. #SBO/H/o Gastric bypass-had acute onset of abd pain, nausea on 06/11--> CT AP w/ IV demonstrates repeat SBO. Had a SBO requiring surgery and repair of incisional hernia at [facility] in fall 2023. - Now having BMs - noted x 3, passing flatus, no abd pain or nausea -Tolerating full liquid - was advanced to low fiber this AM - tolerated lunch -Currently with Colace and Miralax JENN - can change to PRN on discharge. Not requiring opiate pain management which will assist. -Continue to encourage ambulation -Labs acceptable; mild reduce potassium at 3.4 likely due to limited dietary intake. Did discuss supplement but given advanced diet can easily replenish with solid food intake -Avoid NSAIDs and ASA with gastric bypass -Gen Surg followed - no NGT required on acute onset; surg team signed off this AM #Orthostatic hypotension-related to hypovolemia and acute blood loss anemia-hgb dropped to 8 from 12, wasn't tolerating po from SBO. Now resolved after IVF boluses and BPs now normal, not lightheaded with ambulating -Reports some increased edema in legs due to IVFs. Encouraged continued HOLLY stockings and elevation of the non-operative leg to assist. She did ask about a diuretic which could be considered but would be hesitant to not induce further orthostasis. -Hgb 7.8 on labs today but asymptomatic. No indication for transfusion. Recommend outpatient routine monitoring #Acute blood loss anemia on chronic anemia-hgb down to 8.1 from preop 12.5, with hypotension now resolved. Hemodilutional now as no evidence of bleeding from anywhere and hemodynamically stable. B12, folate, TSH all normal Transferrin sat low at 7% -Received Venofer IV x 2 - does not need to remain hospitalized for 3rd dose. PCP can evaluated for future need -Hold ferrous sulfate as can worsen ileus/constipation this can be discussed with PCP for resuming. Has received IV iron in the past. With h/o gastric bypass, at risk for nutritional deficiencies. Also with RA and could have some anemia of chronic disease #Hyponatremia: RESOLVED -Na+132 with hypovolemia/dehydration and now normal after IVFs #Depression/anxiety-no acute issues -continue home bupropion and duloxetine #Knee revision of TKA/RA-post-op care as per Ortho. Started on Plaquenil by Sap Director about 2 mo ago for new dx of RA and with plans to start MTX in future -Recommend holding hydroxychloroquine until healed up from knee surgery-about 2 weeks - discussed with patient to also call her Sap Director to discuss -Pain control, Keflex as per Ortho -HOLLY agudelo, SCDs, and started low dose Xarelto for DVT prophylaxis - avoid ASA given h/o gastric bypass-discussed with Ortho DVT proph-SCDs, TEDs, Xarelto 10mg daily x 1 month Dispo- Home health services planned with start tomorrow. Plan to continue low fiber diet x 2 weeks then gradual increase of fiber. Remains anemic but asymptomatic and can be followed as outpatient with PCP. Recommend Miralax daily and titrate to one bowel movement a day. Hold Plaquenil with instructions placed on D/C. Will recheck patient after lunch, if diet is tolerated no opposition for discharge from hospitalist service. Admission and Anticipated Discharge Date Admission Date: June 12, 2024 Supervising Physician Co-Signing Physician Notes MANUELA Supervision Note: I did not personally see or examine the patient today, but I verified all katz points of MANUELA Dawkins's assessment and plan with the following excep tions/additions: None Subjective Pt was seen and evaluated at bedside. She participated with therapy this AM and reports it is going well. She reports her pain is controlled. She does not some bilateral edema of the legs and was wondering if a diuretic would be beneficial. She is tolerating a full liquid diet and was advanced to a low fiber diet this AM by surgery. She denies abdominal pain, continues to pass flatus, and move her bowels. She denies any new complaints today. Review of Systems Review of Systems: REVIEW OF SYSTEMS General/Constitutional: Denies fever/chills Cardiovascular: +bilateral lower extremity edema; Denies chest pain, palpitatio ns Respiratory: Denies cough, SOB GI: Denies nausea, vomiting, abdominal pain, constipation, diarrhea, melena/hematochezia : Denies dysuria Musculoskeletal: + tolerable pain of R knee Neurologic: Denies dizziness/lightheadedness Physical Exam Physical Exam: PHYSICAL EXAM General Appearance: WDWN in NAD who is A&O x 3 HEENT: Head is normocephalic/atraumatic; Hearing grossly intact; Mucous membranes moist Neck: Supple; Trachea midline; Neg JVD Heart: RRR with no M/G/R Lungs: CTA in all lung bishop bilaterally; Respirations unlabored; Neg accessory muscle use Abdomen: Soft, non-tender, non-distended; Positive BS x 4 quadrants Extremities: RLE with surgical bandage in place with dried serosang fluid. Thigh high stockings in place Neurological: Speech clear; Gross motor/sensory function intact; Neg focal neurologic deficits Psychiatric: Appropriate mood/affect Results & Data Results & Data Vital Signs (Past 12 Hours) Vital Signs Temp Pulse Resp BP Pulse Ox O2 Del Method 06/15/24 07:00 36.7 C 87 16 149/93 H 98 Room Air Laboratory Results Laboratory Results - last 24 hr 06/15/24 06:50 WBC 5.09 RBC 2.64 L Hgb 7.8 L Hct 23.4 L MCV 88.6 MCH 29.5 MCHC 33.3 RDW Std Deviation 49.5 H RDW Coeff of Zahida 15.4 H Plt Count 280 MPV 9.2 L Immature Gran % (Auto) 2.4 Neut % (Auto) 64.6 Lymph % (Auto) 21.2 Hanson % (Auto) 8.3 Eos % (Auto) 2.9 Baso % (Auto) 0.6 Neut # (Auto) 3.29 Lymph # (Auto) 1.08 L Hanson # (Auto) 0.42 Eos # (Auto) 0.15 Baso # (Auto) 0.03 Immature Gran # (Auto) 0.12 Absolute Nucleated RBC 0.04 Nucleated RBC % (auto) 0.8 Polychromasia 1+ Hypochromasia Present Sodium 139 Potassium 3.4 L Chloride 103 Carbon Dioxide 31 Anion Gap 5 BUN 5 L Creatinine 0.46 L Est Cr Clr Drug Dosing 130.3 eGFR 110.17 BUN/Creatinine Ratio 10.9 Glucose 91 Calcium 7.7 L PG Care Time/CCT Total # of Minutes Spent Total Time Spent with Patient: Total time spent is greater than 50% in coordination of care (as documented) at patient's floor/unit and/or counseling patient: Coding Level of Care Code 33244 SUB INP/OBS CARE MIN Diagnoses Small bowel obstruction K56.609 Acute blood loss anemia D62 Status post revision of total replacement of right knee Z96.651 Rheumatoid arthritis M06.9
--- NOTE | 2024-06-15 11:28 | Orthopedic Progress Note ---
Date of Service June 15, 2024 Assessment & Plan (1) Status post revision of total replacement of right knee: Plan: 59-year-old female now 6 days out from revision knee arthroplasty doing much better. She was having some GI bowel issues and has significant ileus which seems to be resolved. Her bowel exam is benign. She has had several bowel movements in the past 24 hours. Plan: We are to continue physical therapy. Continue to gradually advance her di et. I think she is safe for her to be discharged with home health. She will follow back in my office in a week to week and a half. She is parul plan on DVT prophylaxis including thigh-high teds, SCDs, and now on Xarelto for 1 month. (2) Ileus: (3) Small bowel obstruction: (4) Acute blood loss anemia: (5) Hypotension: Admission and Anticipated Discharge Date Admission Date: June 12, 2024 Subjective 59-year-old female postop day 6 now from a revision right total knee arthroplasty. She has been struggling with GI/bowel issues. She is doing better. Having no abdominal pain. Really not much knee pain. Does she did have several bowel movements in the past 24 hours. Feeling much better more optimistic. Physical Exam Physical Exam: The exam shows a pleasant middle-age female. She says sitting up bed looks comfortable. Examination the right leg reveals a dressing in place. Little bit of serosanguineous drainage on the dressing. She can do a good straight leg raise. She can dorsiflex and plantarflex her foot appropriately. She is neurologically intact. Results & Data Vital Signs (Past 12 Hours) Vital Signs Temp Pulse Resp BP Pulse Ox O2 Del Method 06/15/24 07:00 36.7 C 87 16 149/93 H 98 Room Air Laboratory Results Hemoglobin 7.8. Hematocrit 23.4. Electrolytes are stable.
[2024-06-15] MEDS: POTASSIUM CHLORIDE 10 MEQ TABCR PO STA (14:04)
--- NOTE | 2024-06-19 08:43 | Discharge Summary ---
Date of Service June 19, 2024 Admission HPI (Per Admitting) . The patient is a 58-year-old female who presents for follow-up and treatment of her knees. She had both of her knees replaced by Dr. Decker shot back in 2006. She did quite well until just about a year ago when she did start develop increased pain discomfort in both knees right side a bit worse than the left. She saw Dr. Mukherjee and had an extensive evaluation which she really did not show much. 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 She had a bone scan which showed a slightly increased uptake in the right compared to the left. I had seen her back then and the x-rays look pretty normal. Over time she has had persistent pain discomfort and swelling. X-rays now show obvious loosening of the tibial tray is in the right side worse than the left. She presents for definitive treatment. Pains become more disabling. She has an infectious workup which has been negative. Patient does have history of gastric bypass surgery many years ago and lost some weight and then gained some back. She had a bowel obstruction about 5 months ago and now recovered from this. No history of infection. Admission Exam (Per Admitting) . Physical examination reveals a pleasant middle-age female but looks to be in reasonably good health. Examination of both knees reveal patient walks with a bit of a antalgic gait. She limps clearly on the right side more so than the left. Examination of the right knee reveals a well-healed incision. Got a moderate- sized soft tissue envelope. Small to moderate-sized knee effusion. Range of motion 0-1 20. No gross instability. No pain with hip motion. Examination left knee reveals a similar soft tissue envelope. Fairly neutral alignment to her knee. Equivocal effusion. Range of motion 0-1 20. No instability. Principal Diagnosis Same as "Discharge Diagnosis" noted below under Discharge Instructions. Discharge Exam GENERAL: AA&Ox3, NAD. Pleasant, affect is calm. Sitting on edge of bed and appears comfortable. RESPIRATORY: Normal respiratory effort with no signs of distress. CHEST/AXILLA: Chest movement symmetrical. No deformities noted. CARDIOVASCULAR: No edema noted. SKIN: [place], warm and dry. MS/EXTREMITY: Knee dressing mostly intact with dry gauze, but with some caryn exposed under the HOLLY hose and some mild dried serosanguineous saturation noted. HOLLY hose donned to contralateral LE. + ankle dorsi/plantarflexion. NVI distally. Calf soft/NT. PT/DP pulses intact, 2+. Able to SLR without assistance. Discharge Data Consultations 06/11/24 18:39 Consult Hospitalist Routine 06/11/24 23:52 Consult General Surgery Stat Procedures Performed Operation Date: 06/09/24 10:40 Actual Procedures p Right Total Knee Revision(Right) - Brett Nelson MD Ordered Studies 06/09/24 05:00 US - OR guided needle placemen Routine 06/11/24 19:25 CT Abd and Pelvis [CT abd pelvis IV con only] Stat Hospital Course (1) Status post revision of total replacement of right knee: This is a 59 year old patient admitted on 06/09/24 and underwent right total knee revision. She tolerated the procedure well and there were no complications. Transferred to the PACU post op and later to the orthopedic floor for further care. She was given ancef for antibiotic prophylaxis. She was also given HOLLY stockings, SCDs, and aspirin for DVT prophylaxis. Aspirin was eventually discontinued and she was placed on xarelto. Hemoglobin, hematocrit, and vital signs were monitored during her hospital stay and remained stable. Did not require any blood transfusions. She did develop a post op ileus/small bowel obstruction which was managed by the Hospitalist service. She was seen by general surgery but did not require any surgical management. By post op day #6 the patient was tolerating PO intake and began having bowel movements, was not really having much knee pain, and she was participating in physical therapy. On post op day #6 the patient was discharged home and set up with home health care. She was given printed discharge instructions including prescriptions for extra strength tylenol, xarelto, cefadroxil, miralax, senokot, zofran, and oxycodone. Continue physical therapy, weight bearing as tolerated. Continue HOLLY stockings. Follow up approximately 2 weeks post op or sooner if there are problems or concerns. PG Care Time/CCT Total # of Minutes Spent Total Time Spent with Patient: : Discharge Plan Discharge Items Patient Disposition: Home - Home Health Services Reason For Visit: Chronic Knee Pain After Total Replacements of Both Discharge Diagnosis: right Revision Knee Replacement Activity: Per Instructions section Non-emergency contact: Primary Care Provider and Surgeon Call non-emergency contact if: you have any medication questions Follow-up/Referrals: Sanjeev Weinberg MD [Primary Care Provider] - Diet: Regular Addtl Attending Provider Instructions: ACTIVITY RECOMMENDATIONS: Diet: * You may resume previous diet. Physical Therapy: * You will go to physical therapy three times each week for four to six weeks after your surgery in order to regain your knee range of motion and to retrain your knee to work properly. * It is just as important to make sure you are getting your knee perfectly straight as it is to regain your knee bend. * Taking a pain pill an hour before therapy can help you have a more productive and comfortable therapy session. Home Exercise: * You were shown a series of exercises (heel props, heel slides, etc.) in the hospital. Do these exercises three to four times each day including the exercises you were shown in physical therapy. Walking: * Get up and walk several times each day. For the first four weeks, try not to stand or walk for more than one hour at a time. If you do stand or walk for more than one hour, you will not hurt anything, but your knee and leg will likely swell. * As you feel comfortable, you may change from the walker or crutches to a cane and then to independent walking. MEDICATIONS: New Medicine: * You will likely be taking one or more of these medications: 1. Oxycodone - A quick and shorter-acting pain medication. Take one to two tablets every six hours to lessen your pain. 2. Xarelto - Thins your blood to lessen the chance of forming a blood clot. * The most common side effects of pain medicine and iron are nausea and c onstipation. If nausea or constipation is too much of a problem or if you have any questions about your new medicines or doses, call [facility] at . We will try to help you manage these issues. "VERY IMPORTANT TO READ AND REVIEW" Pain: * The immediate post-operative period after knee replacement surgery is often quite painful. * You are given a prescription for pain medicine. You should take it, as directed, when you need it, especially before physical therapy and before going to bed. Pain that interferes with sleep is very common and can last several months. * You will likely need pain medicine for the first four to six weeks. It will not stop all of the pain. The pain will lessen and as you feel better, you may change to milder pain medicine such as Tylenol. * The most common side effects of pain medicine are nausea and constipation, so don't take more than you need. SPECIAL CARE INSTRUCTIONS: TEDs/Elastic Stockings: * The white elastic stockings help limit swelling and prevent blood clots from forming in your legs. The more you wear them, the more they work. * Wear them for six weeks after knee replacement surgery and four weeks after partial knee replacement. Incision Site Care: * Remove dressing postoperative day 2 and then shower. Keep direct shower pressure off the incision site. * After showering, cover caryn with dry gauze and change daily or more frequently if the dressing is getting saturated with drainage. * Use the HOLLY stockings to hold dressing in place. DO NOT apply tape on the skin. * May completely stop using bandage if wound is dry and no drainage * Caryn are removed between 2 and 3 weeks post-op. If your follow-up appointment is made before 2 weeks, please have your appointment re- scheduled. It is too early to remove the caryn. Prevention of Infection: * Take antibiotics one hour before any dental cleaning, dental work, urological procedure, gastrointestinal procedure or any invasive surgery in order to prevent your new joint from getting infected. * You may get the antibiotics from the doctor performing the procedure or you may call our office at [phone] before and we will call in a prescription to the pharmacy of your choice. Things to Watch For: * Drainage from the incision site that occurs more than one week after your surgery. * Severely increased knee/leg pain or swelling. * Increased redness at the incision site. * Fever above 102 degrees Fahrenheit. * Unusual chest pain or shortness of breath. * Unusual pain or burning with urination. Call [facility] at [phone] with any of the above problems or if you have any questions about your medicines or recovery. FOLLOW UP VISIT: Make an appointment to see your doctor for approximately two weeks after surgery for a progress check and staple removal by calling the office at [phone]. Addtl House Director Provider Instructions: Small Bowel Obstruction: - During your hospital stay you develop a small bowel obstruction. This resolved on its own with bowel rest. It will be important to continue to be mindful of you bowel movements. Encourage you to continue to get up and walk which helps move the bowels. Recommend taking over the counter miralax once daily and titrate to have a bowel movement once a day. You had your diet advanced to a low fiber diet and recommend to continue this for about 2 weeks. Initially after an obstruction we do not want to bulk the stool too much. After the 2 weeks you can start to incorporate more fiber into the diet. Rheumatoid Arthritis: -We would recommend holding the Plaquenil for approximately 2 weeks from your surgery date to not impact incision healing. Please call your Medical Affairs Leader to discuss. They can provide you with more direction on when to restart per their discretion. Low Iron: - Your iron was found to be low during this hospital stay. You did have two iron infusions during this stay. You are already set up to see a block sawyer. Please discuss with them and your family doctor to consider IV infusions in the future. Oral iron can increase constipation so would recommend holding this for now. Please discuss this with your family doctor if they would like you to continue it in the future. Leg Swelling: - It is common to have some swelling after surgery and getting IV fluids. This will gradually go down. Recommend to elevate your non-operative leg to help fluid movement. Continue to use compression stockings to help push the fluid out. Due to having the lower blood pressures and orthostasis (blood pressure dropping when moving) it may be best to hold on using a diuretic (water pill) for now. If the swelling continues to be stubborn please discuss with your family doctor. Pending Studies at Discharge: No Stand-Alone Forms: My [facility], Smoking Cessation Medications and DC Order Prescriptions: New Xarelto 10 mg Tablet 10 mg PO DAILY 30 Days Qty: 30 0RF Rx Instructions: Take to prevent blood clots. polyethylene glycol 3350 [Miralax] 17 gram Powder In Packet 17 g PO DAILY Qty: 30 0RF Rx Instructions: OTC. Take to titrate for once a day bowel movements. Continued bupropion HCl 150 mg tablet sustained-release 12 hr 150 mg PO BID Qty: 180 3RF oxycodone 5 mg tablet 5 - 10 mg PO Q6 PRN (Reason: pain) Qty: 40 0RF Rx Instructions: Take as needed for pain ondansetron 4 mg tablet,disintegrating 4 mg PO Q8 PRN (Reason: nausea) Qty: 20 1RF Rx Instructions: Take as needed for nausea sennosides [Senokot] 8.6 mg tablet 8.6 mg PO BID 14 Days Qty: 28 0RF Rx Instructions: Take two times a day to prevent/treat constipation acetaminophen [Tylenol Extra Strength] 500 mg tablet 1,000 mg PO TID 30 Days Qty: 180 0RF Rx Instructions: Take 3 times per day to lessen pain. vitamin A palmitate 3,000 mcg (10,000 unit) tablet 3,000 mcg PO QAM phytonadione (vitamin K1) 100 mcg tablet 100 mcg PO QAM thiamine HCl (vitamin B1) 50 mg tablet 100 mg PO QAM zinc 10 mg Tablet 10 mg PO QAM calcium 600 mg Capsule 600 mg PO QAM ascorbic acid (vitamin C) [Vitamin C] 1,000 mg Tablet 1 g PO DAILY PRN (Reason: Cold Symptoms) cyanocobalamin (vitamin B-12) [Vitamin B-12] 1,000 mcg Tablet 1,000 mcg PO Q3D magnesium Tablet 1 tab PO QAM levomefolate calcium 15 mg Tablet 15 mg PO QAM cholecalciferol (vitamin D3) 1,250 mcg (50,000 unit) tablet 1,250 mcg PO Q7D Rx Instructions: orally weekly; duloxetine [Cymbalta] 30 mg Capsule,Delayed Release(Dr/Ec) 30 mg PO DAILY Held hydroxychloroquine 200 mg Tablet 200 mg PO BID Hold Instructions: Resume on 06/23/24. Please call your director of product marketing to discuss. Discontinued aspirin [Kalli Low Dose Aspirin] 81 mg tablet,delayed release (DR/EC) 81 mg PO BID 45 Days Qty: 90 0RF Rx Instructions: Take to prevent blood clots. acetaminophen 325 mg tablet 975 mg PO Q6H PRN (Reason: Pain) Rx Instructions: x 3 days ferrous sulfate [Iron (ferrous sulfate)] 325 mg (65 mg iron) Tablet 325 mg PO QAM Discharge Orders: Discharge Order (Routine); Ordered 06/15/24 Ordered By: Brett Nelson Admission Data Admit Date/Time: 06/12/24 13:44 Attending Provider: Brett Nelson Admit Provider: Brett Nelson Primary Care Provider: Sanjeev Weinberg Other Providers: [facility]; Yandel Rod; Adele Keene. Other Interventions: Discharge Summary Assessment (RN) Last Done: 06/15/24 11:50
== END 2024-06-15 14:15 | disposition home health service (06) | DRG 467 ==
LOC: ASU 08:06 → 3N 08:06

== ENCOUNTER 2024-12-01 07:08 | Observation (INO) ==
--- NOTE | 2024-10-17 15:07 | PAT Medication Instructions ---
Medication Instructions Date of Service October 17, 2024 Home Medications Medication Instructions Recorded peg 3350-electrolytes 236 240 ml PO Q10M #4,000 mL 07/25/24 gram-22.74 gram-6.74 gram-5.86 gram solution (Golytely) fluoxetine 40 mg capsule 40 mg PO QAM #30 caps 10/09/24 phytonadione (vitamin K1) 100 mcg tablet 100 mcg PO QAM vitamin A palmitate 3,000 mcg (10,000 unit) tablet 3,000 mcg PO QAM zinc 10 mg tablet 10 mg PO QAM cholecalciferol (vitamin D3) 1,250 mcg (50,000 unit) tablet 1,250 mcg PO Q7D cyanocobalamin (vitamin B-12) 1,000 mcg tablet (Vitamin B-12) 1,000 mcg PO Q3D levomefolate calcium 15 mg tablet 15 mg PO QAM magnesium 1 tab PO Q OTHER DAY peg 3350-electrolytes 236 gram-22.74 gram-6.74 gram-5.86 gram solution (Golytely) 240 ml PO Q10M ascorbic acid (vitamin C) 1,000 mg tablet (Vitamin C) 1 g PO DAILY PRN calcium 600 mg capsule 600 mg PO QAM fluoxetine 40 mg capsule 40 mg PO QAM calcium 315 mg (as citrate)-vitamin D3 5 mcg (200 unit) tablet (Calcium Citrate + D) 2 tab PO BID ferrous sulfate 325 mg (65 mg iron) tablet (Iron (ferrous sulfate)) 65 mg PO Q OTHER DAY polyethylene glycol 3350 17 gram oral powder packet (Miralax) 17 g PO DAILY PRN STOP taking 2 weeks before surgery (or as soon as possible if surgery is within 2 weeks) phytonadione (vitamin K1) 100 mcg tablet 100 mcg PO QAM vitamin A palmitate 3,000 mcg (10,000 unit) tablet 3,000 mcg PO QAM levomefolate calcium 15 mg tablet 15 mg PO QAM DO NOT take the morning of surgery zinc 10 mg tablet 10 mg PO QAM cholecalciferol (vitamin D3) 1,250 mcg (50,000 unit) tablet 1,250 mcg PO Q7D cyanocobalamin (vitamin B-12) 1,000 mcg tablet (Vitamin B-12) 1,000 mcg PO Q3D magnesium 1 tab PO Q OTHER DAY peg 3350-electrolytes 236 gram-22.74 gram-6.74 gram-5.86 gram solution (Golytely) 240 ml PO Q10M ascorbic acid (vitamin C) 1,000 mg tablet (Vitamin C) 1 g PO DAILY PRN calcium 600 mg capsule 600 mg PO QAM calcium 315 mg (as citrate)-vitamin D3 5 mcg (200 unit) tablet (Calcium Citrate + D) 2 tab PO BID ferrous sulfate 325 mg (65 mg iron) tablet (Iron (ferrous sulfate)) 65 mg PO Q OTHER DAY polyethylene glycol 3350 17 gram oral powder packet (Miralax) 17 g PO DAILY PRN Take morning of surgery With a small sip of water, OTHERWISE NOTHING TO EAT OR DRINK AFTER MIDNIGHT: fluoxetine 40 mg capsule 40 mg PO QAM Take evening before surgery calcium 315 mg (as citrate)-vitamin D3 5 mcg (200 unit) tablet (Calcium Citrate + D) 2 tab PO BID Other Notes If you have any questions please call us at [phone] or [phone] or [phone] or [phone]
--- NOTE | 2024-10-27 10:08 | Anesthesiology Consultation ---
Date of Service October 27, 2024 Assessment & Plan (1) Encounter for pre-operative examination: THIS IS ANESTHESIA CONSULT FOR LEFT TKA REVISION SCHEDULED 12/01/24 - Infectious disease screening: Per assessment on 10/27/24- No known recent in fectious disease contacts or current infectious disease symptoms. - PCP visit (10/27/24): "59-year-old seen today for follow-up on anxiety and depression. She has improved with fluoxetine 40 mg daily. She will continue that for now. The patient also has noted restless legs on a previous sleep study. She is requesting a home sleep study. We will order that today. Follow- up in 3 months, sooner if needed." - S/P Right Total Knee Revision (06/09/24): SAB at L3/4 (1 attempt) + regional at [facility] > Post op ileus/SBO > medically managed (no surgical intervention) Chart Review Chart Review: Acceptable Risk for Surgery and Patient seen in Pre Admission Testing Teaching & Discussion Pre-Anesthesia Teaching/Discussion Notes: Instructed NPO after midnight before surgery,except medications with 15 cc of water. Medication instructions provided according to the PAT guidelines. History Surgery Operation Date: 12/01/24 07:00 Proposed Procedures p Left Total Knee Arthroplasty Revision - Brett Nelson MD Height/Weight Height: 5 ft 2 in Weight: 77.9 kg Allergies Allergy/AdvReac Type Severity Reaction Status Date / Time hydrocodone Allergy Intermediate Itching Verified 10/27/24 08:25 Medications Home Medications Medication Instructions Recorded Confirmed Last Taken phytonadione (vitamin K1) 100 mcg 100 mcg PO QAM 02/09/24 10/17/24 06/02/24 09:00 tablet vitamin A palmitate 3,000 mcg 3,000 mcg PO QAM 02/09/24 10/27/24 06/08/24 09:00 (10,000 unit) tablet zinc 10 mg tablet 10 mg PO QAM 03/13/24 10/27/24 Unknown cholecalciferol (vitamin D3) 1,250 1,250 mcg PO Q7D 05/01/24 10/27/24 06/07/24 09:00 mcg (50,000 unit) tablet cyanocobalamin (vitamin B-12) 1,000 mcg PO Q3D 05/01/24 10/27/24 06/07/24 09:00 1,000 mcg tablet (Vitamin B-12) peg 3350-electrolytes 236 240 ml PO Q10M #4,000 mL 07/25/24 08/01/24 Unknown gram-22.74 gram-6.74 gram-5.86 gram solution (Golytely) ascorbic acid (vitamin C) 1,000 mg 1 g PO DAILY PRN Cold Symptoms 08/01/24 10/27/24 Unknown tablet (Vitamin C) fluoxetine 40 mg capsule 40 mg PO QAM #30 caps 10/09/24 10/27/24 Unknown calcium 315 mg (as 2 tab PO BID 10/17/24 10/27/24 Unknown citrate)-vitamin D3 5 mcg (200 unit) tablet (Calcium Citrate + D) ferrous sulfate 325 mg (65 mg 65 mg PO Q OTHER DAY 10/17/24 10/27/24 Unknown iron) tablet (Iron (ferrous sulfate)) polyethylene glycol 3350 17 gram 17 g PO DAILY PRN Constipation 10/17/24 10/27/24 Unknown oral powder packet (Miralax) calcium carb-magnesium carb PO DAILY 10/27/24 10/27/24 Unknown levomefolate calcium 15 mg tablet 15 mg PO QAM PRN Wellbutrin 10/27/24 10/27/24 Unknown Absorption Past Medical History Medical History Anxiety Aseptic loosening of prosthetic knee Chronic knee pain after total replacement of both knee joints s/p right knee revision 05/2024 Depression Fibromyalgia Per remote records Patient denies History of COVID-19 2019, no residual symptoms History of reactive airway disease No issues x years No recent issues or inhalers Hx of colonic polyps Hyperlipidemia Hypotension Hx - 05/2024 [facility] IP Incisional hernia Future plan for surgical correction ~12/2024 Inflammatory arthritis Follows with [facility]/Dr. Johnson Iron deficiency anemia Hx IV iron in the past Loose total knee arthroplasty Obesity, Class II, BMI 35-39.9 Osteoarthritis Restless leg syndrome Sleep apnea Device recommended after remote sleep study (patient never used). Restless leg noted additionally. Subsequent gastric bypass. Plan for repeat/future sleep study (not scheduled yet) Small bowel obstruction Hx (12/2023) and (05/2024) [facility] IP Exercise / Class Metabolic Activity II 4-5 Yardwork/Stairs/Walk up hill (one FS: No CP, no SOB) Past Family History Family History Grandmother (Maternal) Family hx of colon cancer Colorectal cancer Mother Atrial fibrillation Father COPD (chronic obstructive pulmonary disease) Sister Obesity Brother Arthritis Grandmother (Maternal) Colorectal cancer Other No family history of adverse response to anesthesia Denies family history of Ovarian cancer Breast cancer Past Surgical History Surgical History Adverse effect of anesthesia Right Total Knee Revision (06/09/24): SAB at L3/4 (1 attempt) + regional at [facility] Post op ileus/SBO 05/2024 after Right TKA revision > medically managed (no surgical intervention) History of arthroplasty of finger of left hand left thumb History of arthroplasty of finger of right hand thumb joint History of arthroscopy of right knee History of bilateral knee replacement History of esophagogastroduodenoscopy (EGD) History of tooth extraction History of trigger finger left hand middle finger History of wisdom tooth extraction Hx of carpal tunnel repair left Hx of colonoscopy with polypectomy Hx of gastric bypass (2007) 2007, Ale-en-Y bypass S/P small bowel resection (12/2023) + umbilical hernia repair, DANI Harris (12/2023) Developed incisional hernia which will be operated on ~12/2024 Status post revision of total replacement of right knee (05/2024) Past Anesthesia History No Family Hx of Anesthesia Complications and Other (Post op ileus/SBO 05/2024 after Right TKA revision > medically managed (no surgical intervention)) History of PONV No Hx of PONV and No Hx of Motion Sickness Social History Smoking Status: Never smoker Do You Dip or Chew Tobacco: No Hx Alcohol Use: No Hx Substance Use: No substance use type: does not use Review of Systems Patient denies chest pain, shortness of breath, dyspnea on exertion, fever, chills, cough, wheezing. Physical Exam Vital Signs BP 120/71 P 54 TEMP 98.9 SP02 97%RA RESP 16 Physical Full cervical extension range of motion. Full TMJ range of motion. TMD > 3.5 finger breaths Mallampati Score II Dentition: + several caps/crowns Lungs: clear throughout to auscultation Cardiac: regular rate and rhythm, no murmurs noted Spine: normal Carotid arteries: negative bruit Extremities: no LE edema Lab Results Anesthesia Preop Results Results Anesthesia Widget: WBC 5.66 K/ul (4.8-10.8) 10/27/24 Hgb 12.2 g/dl (12.0-16.0) 10/27/24 Hct 37.1 % (37.0-47.0) 10/27/24 Plt 288 K/uL (130-400) 10/27/24 Na 137 mmol/L (136-145) 10/27/24 K 4.2 mmol/L (3.5-5.1) 10/27/24 Cl 102 mmol/L (98-107) 10/27/24 CO2 29 mmol/L (21-32) 10/27/24 BUN 11 mg/dl (6-23) 10/27/24 Creat 0.51 mg/dl (0.6-1.2) L 10/27/24 Glucose Level 93 mg/dl (70-99(Fasting)) 10/27/24 PT 10.7 Seconds (9.0-12.0) 10/27/24 PTT 27 Seconds (21-31) 10/27/24 INR 1.0 (0.9-1.1) 10/27/24 Blood Type A Negative 10/27/24 Antibody Screen NEGATIVE 10/27/24 Testing Electrocardiogram Date: 01/13/24 Findings: + NSR @ (91bpm) poor data quality. L axis. Poor R wave progression. Cannot r/o anterior infarct, age undetermined. No significant change from 2018 Chest X-Ray Date: 05/15/24 FINDINGS: Lung volumes are normal. Lungs are clear. There is no pneumothorax or pleural effusion. Cardiac size is normal. Mediastinal contours are normal. There is no evidence for pulmonary edema. Suspected distal right clavicular resection. IMPRESSION: No acute cardiopulmonary findings. Other Testing C-Spine Xray Date: 05/15/24 FINDINGS: There is moderate diffuse degenerative disc disease. There is grade 1 anterolisthesis C6 on 7 and C7 on T1. No fracture seen. No abnormal translation. IMPRESSION: Degenerative disc disease.
--- NOTE | 2024-11-27 07:48 | History & Physical Report ---
Date of Service November 27, 2024 Assessment & Plan (1) Painful total knee replacement, left: 59-year-old female 17 years out from bilateral knee replacements and now about 6 months out from a revision of the left knee. She is doing well from the right side would like to have her left knee revised. Plan:We are going to take her to the operating room and do left knee revision. The risks met this procedure explained. Informed consent was obtained. Will do the best we can to manage her GI issues. She will stay in the hospital overnight. Will plan on aspirin for DVT prophylaxis. (2) Aseptic loosening of prosthetic knee: History of Present Illness Chief Complaint: . Persistent left knee pain discomfort and swelling after previous knee replacement in 2006. Primary Care Provider: Sanjeev Weinberg MD . The patient is a 59-year-old female now approximately 6 months out from aRit total knee replacement revision for aseptic loosening. Her right knee is doing great. She continues to be bothered by left knee pain discomfort and swelling. She had both of her knees initially replaced by Dr. Gongora No 7. She did quite well for many years. Over the past several years that she has developed increased pain discomfort in both knees. She had an extensive infection workup which has been negative to date. X-rays show loosening of both tibial trays. She had her right knee revised and is done well. She now presents for left knee revision.She has pain and discomfort in his knee. It swells quite a bit. She limps all day long. Of note, patient does have a history of gastric bypass surgery. She had some GI issues after her last surgery which took a while to recover. Allergies Allergy/AdvReac Type Severity Reaction Status Date / Time hydrocodone Allergy Intermediate Itching Verified 10/27/24 08:25 Home Medications Medication Instructions Recorded Confirmed Type phytonadione (vitamin K1) 100 mcg 100 mcg PO QAM 02/09/24 10/17/24 History tablet vitamin A palmitate 3,000 mcg 3,000 mcg PO QAM 02/09/24 10/27/24 History (10,000 unit) tablet zinc 10 mg tablet 10 mg PO QAM 03/13/24 10/27/24 History cholecalciferol (vitamin D3) 1,250 1,250 mcg PO Q7D 05/01/24 10/27/24 History mcg (50,000 unit) tablet cyanocobalamin (vitamin B-12) 1,000 mcg PO Q3D 05/01/24 10/27/24 History 1,000 mcg tablet (Vitamin B-12) ascorbic acid (vitamin C) 1,000 mg 1 g PO DAILY PRN Cold Symptoms 08/01/24 10/27/24 History tablet (Vitamin C) fluoxetine 40 mg capsule 40 mg PO QAM #30 caps 10/09/24 10/27/24 Rx calcium 315 mg (as 2 tab PO BID 10/17/24 10/27/24 History citrate)-vitamin D3 5 mcg (200 unit) tablet (Calcium Citrate + D) ferrous sulfate 325 mg (65 mg 65 mg PO Q OTHER DAY 10/17/24 10/27/24 History iron) tablet (Iron (ferrous sulfate)) polyethylene glycol 3350 17 gram 17 g PO DAILY PRN Constipation 10/17/24 10/27/24 History oral powder packet (Miralax) calcium carb-magnesium carb PO DAILY 10/27/24 10/27/24 History levomefolate calcium 15 mg tablet 15 mg PO QAM PRN Wellbutrin 10/27/24 10/27/24 History Absorption peg 3350-electrolytes 236 240 ml PO Q10M #4,000 mL 10/30/24 Rx gram-22.74 gram-6.74 gram-5.86 gram solution (Golytely) rivaroxaban 10 mg tablet (Xarelto) 10 mg PO DAILY 30 days #30 tabs 11/23/24 Rx Past Med/Surg History Problem List (Updated 11/27/24 @ 07:45 by Brett Nelson MD) Painful total knee replacement, left Restless legs syndrome Iron deficiency anemia Hyperlipidemia Reactive airway disease (Acute) Vitamin D deficiency (Chronic) Depression with anxiety (Chronic) Medical History Inflammatory arthritis Follows with [facility]/Dr. Johnson Incisional hernia Future plan for surgical correction ~12/2024 Hyperlipidemia Iron deficiency anemia Hx IV iron in the past Hypotension Hx - 05/2024 [facility] IP Small bowel obstruction Hx (12/2023) and (05/2024) [facility] IP Chronic knee pain after total replacement of both knee joints s/p right knee revision 05/2024 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 Hx of colonic polyps Obesity, Class II, BMI 35-39.9 History of COVID-19 2019, no residual symptoms History of reactive airway disease No issues x years No recent issues or inhalers Sleep apnea Device recommended after remote sleep study (patient never used). Restless leg noted additionally. Subsequent gastric bypass. Plan for repeat/future sleep study (not scheduled yet) Fibromyalgia Per remote records Patient denies Osteoarthritis Depression Anxiety Restless leg syndrome Surgical History Hx of colonoscopy with polypectomy Adverse effect of anesthesia Right Total Knee Revision (06/09/24): SAB at L3/4 (1 attempt) + regional at [facility] Post op ileus/SBO 05/2024 after Right TKA revision > medically managed (no surgical intervention) Hx of carpal tunnel repair left History of bilateral knee replacement Status post revision of total replacement of right knee (05/2024) Hx of gastric bypass (2007) 2007, Ale-en-Y bypass S/P small bowel resection (12/2023) + umbilical hernia repair, DANI Harris (12/2023) Developed incisional hernia which will be operated on ~12/2024 History of arthroplasty of finger of left hand left thumb History of trigger finger left hand middle finger History of arthroplasty of finger of right hand thumb joint History of arthroscopy of right knee History of esophagogastroduodenoscopy (EGD) History of tooth extraction History of wisdom tooth extraction Family History Grandmother (Maternal) Family hx of colon cancer Colorectal cancer Mother Atrial fibrillation Father COPD (chronic obstructive pulmonary disease) Sister Obesity Brother Arthritis Grandmother (Maternal) Colorectal cancer Other No family history of adverse response to anesthesia Denies family history of Ovarian cancer Breast cancer Social History Smoking Status: Never smoker Second Hand Exposure: No; Do You Dip or Chew Tobacco: No; Hx Alcohol Use: No Hx Substance Use: No Preferred Language: Italian Communication Ability: Effective Tank Washer Required: No Beliefs That Will Affect Care: None marital status: Current Living Situation: Spouse current occupational status: employed current occupation: [employer] How many Children do You have: 1 Feels Safe at Home: Yes Childhood Exposure to Second-Hand Smoke: Yes Diet: regular caffeine: Yes Dental Care, Regularly: Yes Physical Activity Frequency: 1-2 Times per Week Seatbelt Use: always Sunscreen Use: No Assistive Devices: Contacts Review of Systems All systems reviewed & are unremarkable except as noted in HPI & below. Physical Exam . Physical examination reveals a pleasant middle-age female. Looks in good health. Her HEENT exam is benign. Neck supple no lymphadenopathy lungs clear auscultation. Heart is a regular rate and rhythm james soft nontender nondistended extremity Emge grossly neuro vas intact up as follows. Examination of the right knee reveals patient walks without any limp on the side. Her knee incisions healed nicely. Not much swelling. Range of motion streamed is 0-1 20. Good straight leg raise. No instability. Examination of the left knee reveals moderate-sized soft tissue envelope. She got a significant knee joint effusion. Range of motion is 0-1 10. She does have some varus valgus laxity. No pain with hip motion. Constitutional WD/WN, vitals as above Neck trachea midline, no thyromegaly Respiratory normal respiratory effort, lungs clear to auscultation Cardiovascular RRR, no murmur, no edema Gastrointestinal (Abdomen) normal bowel sounds, soft, nontender, no hepatosplenomegaly Results & Data Results & Data Laboratory Results . Laboratory values reveal a normal white count. She is slightly anemic with a hemoglobin 12.2. Sed rate is 5 and CRP is less than 0.50 Left knee aspirate reveals 1042 white cells with 35% polys and 65% mononuclear cells. Cultures were no growth. Diagnostic Findings .X-rays of the knee were reviewed. Shows evidence of the previous left knee replacement. She has got obvious loosening of the tibial tray. PG Care Time/CCT Total # of Minutes Spent Total Time Spent with Patient: Total time spent is greater than 50% in coordination of care (as documented) at patient's floor/unit and/or counseling patient: Coding Level of Care Code None Diagnoses Painful total knee replacement, left T84.84XA; Z96.652 Aseptic loosening of prosthetic knee T84.038A; Z96.659
[~2024-12-01 07:08] MED LIST changes: -BUPIVACAINE 0.25% PF 30 ML VIAL ONE; +ROPIVACAINE 0.5% 5 MG/ML 30 ML VIAL ONE
[2024-12-01] MEDS: LR 60ML/HR IV SCH (07:32)
[2024-12-01] MEDS: LR 500ML BOLUS, THEN 15ML/HR IV SCH (07:32)
[2024-12-01] MEDS: CeleBREX 200 MG CAP PO SCH (07:33)
[2024-12-01] MEDS: ACETAMINOPHEN 500 MG TAB PO SCH ×2 (07:33→15:25)
[2024-12-01] MEDS: dexAMETHasone**PF** 10 MG/ML VIAL IV SCH (07:34)
[2024-12-01] MEDS: FAMOTIDINE 20 MG TAB PO SCH (07:34)
[2024-12-01] MEDS: METOCLOPRAMIDE HCL 10 MG TABLET PO SCH (07:34)
[2024-12-01] MEDS ORDERED: MIDAZOLAM HCL 1 MG/ML 2ML VIAL ONE ×2 (07:52→09:04)
[2024-12-01] MEDS ORDERED: LIDOCAINE 2% 2 ML VIAL/AMP(20MG/ML) INFIL ONE (07:53)
[2024-12-01] MEDS ORDERED: PROPOFOL IV EMULSION 10 MG/ML 100 ML VIAL IV ONE (07:53)
[2024-12-01] MEDS ORDERED: PROMETHAZINE HCL 6.25 MG in SODIUM CHLORIDE 0.9% 50 ML IV PRN (08:34)
[2024-12-01] MEDS ORDERED: ATROPINE SULFATE 0.1 MG/ML 10ML SYR IV PRN (08:34)
[2024-12-01] MEDS ORDERED: HYDROmorphone INJ 2 MG/ML SYR/VIAL IV PRN (08:34)
[2024-12-01] MEDS ORDERED: ONDANSETRON INJ 2 MG/ML 2 ML VIAL IV PRN (08:34)
--- NOTE | 2024-12-01 09:19 | History & Physical Bridge Note ---
Date of Service December 01, 2024 History & Physical Bridge Note I have examined the patient, reviewed the History & Physical and in the interval since the performance of the History & Physical I have noted the following changes of clinical significance: no changes noted
[2024-12-01] MEDS ORDERED: ePHEDrine sulfate 50 MG/5 ML SYR ONE (09:53)
[2024-12-01] MEDS ORDERED: GLYCOPYRROLATE 0.2 MG/ML VIAL ONE (09:53)
[2024-12-01] MEDS ORDERED: KETAMINE HCL 10MG/ML SYR ONE (09:56)
[2024-12-01] MEDS ORDERED: HYDROmorphone INJ 2 MG/ML SYR/VIAL ONE (10:21)
[2024-12-01] MEDS ORDERED: ONDANSETRON INJ 2 MG/ML 2 ML VIAL ONE (10:40)
[2024-12-01] MEDS: VANCOMYCIN HCL 1000MG/20ML VIAL ONE (10:46)
[2024-12-01] MEDS: ORTHO JOINT ANESTHETIC ONE (10:46)
[2024-12-01] MEDS: ROPIV 0.5% 246mg, Ketorolac 30mg, EPINEPHrine 0.5mg in NSS INFIL SCH (10:47)
--- NOTE | 2024-12-01 12:59 | Operative Report ---
PG Post Operative Report Pre & Post Diagnosis Operation Date: 12/01/24 08:50 Pre-Op Diagnosis: Painful total knee replacement, left; Aseptic loosening of prosthetic knee Post-Op Diagnosis: Painful total knee replacement, left; Aseptic loosening of prosthetic knee I identified the patient and participated in the time-out.: Yes Procedure Operation Date: 12/01/24 08:50 Actual Procedures p Left Revision Total Knee Arthroplasty(Left) - Brett Nelson MD Surgeon Brett Nelson MD [employer] Duty Manager Shereen Malave PA-C Estimated Blood Loss 50 Findings Consistent with Post-Op Diagnosis Operative findings revealed a large serosanguineous effusion. That she had a grossly loose tibial component. She had extensive synovitis. Specimens Left knee synovium sent for frozen section which revealed 0 polys per high-power field. Left knee bone sent for pathology. Left knee joint fluid sent for stat Gram stain and aerobic and anaerobic cul ture. Anesthesia Type General Regional Complications none Disposition Accompanied Patient To Recovery: No Indications The patient is a 59-year-old female who is now about 18 years out from bilateral knee replacements. She really did well for the first 16 to 17 years. Over the past year she developed increased pain discomfort both knees. She underwent an aseptic revision of the right knee for gross tibial loosening. The left knee showed progressive loosening of the tibial tray. She elected proceed with surgical management. She had an extensive infectious workup preoperatively which was negative. Description of Procedure Operative implants consists of: 1 Biomet Vanguard III 160 62.5 left posterior stabilized femoral component with distal medial and distal lateral augments and a 2.5 mm offset with a 17 x 80 mm offset stem. 2. Biomet Vanguard III 160 67 tibial tray with a 5 mm offset, 13 x 80 mm stem and a small cruciate wing. 3. 20 mm posterior stabilized constrained polyethylene insert. The patient was taken to the op room, identified, placed on the operating table in the supine position. All conductors were appropriately padded. IV antibiotics fibra anesthesia team. A adductor canal block had been Weida in the holding area. A spinal anesthetic was attempted but unsuccessful. A general anesthetic was then implemented. A Grier catheter was placed in sterile fashion. A left thigh tent was then placed. The left lower extremity was then prepped and draped in usual sterile fashion. The left leg was elevated exsanguinated with use of an Esmarch and torse placed at 300 mmHg. An anterior approach to the left knee was then performed through previous incision extending approximately about 2 cm and distally about a centimeter. Sharp dissection was carried through subcutaneous tissue down the extensor mechanism. A medial parapatellar arthrotomy incision was made. An extensive synovectomy was performed of the suprapatellar pouch and medial lateral gutters. The synovium was sent for pathology which revealed 0 polys per high-power field. The joint fluid was sent for stat Gram stain and aerobic and anaerobic culture. We did not get the results of that. Based on the frozen section we proceed with revision. The knee was flexed. The polyethylene was removed. The femoral component was then removed using a thin sawblade along with a stacked osteotome technique. The tibial component was grossly loose and removed without difficulty. I then used a drill and osteotomes to remove the cement from the tibial metaphysis. Once this was cleared and the plug removed we reamed the tibia up to a size 17. It was prepared for a 5.0 mm offset stem. The implant was assembled and fit nicely in the tibia. Attention drawn the femur. The distal femur was entered with entry drill. We then reamed up to a size 17. The distal femoral cutting block was placed with a 5 degree angle device. A freshen up cut was then performed to remove just a little bit of bone distally from both ends. The femur was then sized to a size 62.5. The AP cutting block was placed in the anterior cut, anterior chamfer, posterior cut, posterior chamfer cuts were made. The femoral trial was placed. The box cutting guide was placed the box cut was made. We then assembled the implant and placed and it fit nicely. This was prepared for a 2.5 mm offset stem. I then trialed the knee and we elected to place two 5 mm distal augments on each side. With this we used a 20 mm insert and it fit nicely. We elected to place the constrained insert to maximize her soft tissue stability. We then examined the patella and it was well-fixed. We went to placing the implants. NuPrep all trial implants were removed. All extraneous cement was removed. We curetted the canals of all fibers to be. We irrigated extensively. A double batch Palacos G cement was mixed with 2 g of vancomycin. The femoral component was placed cementing the metaphysis and the tibia was placed cementing the metaphysis. A trial implant was placed. The knee was reduced and held in extension till the cement hardened. A final cement check was then performed. The tourniquet was then let down. We then removed the poly and there was no excessive bleeding from the back. The permanent polyethylene insert was placed. Attention jointer closing. The wound was irrigated with an Somaxon normal saline. The patient did receive 1 g tranexamic acid before the tourniquet was down. We also injected with 60 cc of half percent Marcaine with epinephrine. The total tourniquet time was 120 minutes. Hemostasis carriages electrocautery. The wound was irrigated. The extensor Metros then closed with a combination of 1 PDS suture and normal Vicryl suture in a [id number] fashion. Extensor Meclomen checked found to be intact the subcutaneous tissue then closed with 2 Dexon suture in buried interrupted fashion skin was closed skin caryn. The leg was then cleaned and dried and a sterile dressing with Xeroform, 4 fours, sterile cast padding, Kevin bandage were applied. Patient then transferred to the recovery room in stable condition. Patient tolerated procedure well and there were no complications. Shereen Malave, physician printing assistant, was present for the entire procedure. Her assistance was required for proper patient positioning, prepping and draping, surgical exposure, retraction, removal of the implants, perform the technical details of the operation, placement of the implants, closure of the incision site, placement of the postoperative sterile bandage. I attest to the content of the Intraoperative Record and any orders documented therein. Any exceptions are noted below.
--- NOTE | 2024-12-01 13:13 | XRay Report ---
XR knee LT 1 or 2V routine CLINICAL HISTORY: Surgical Post Op COMPARISON: None FINDINGS: Long stem left knee prosthesis shows no hardware complication. There is expected soft tiss ue gas. Skin caryn are present. IMPRESSION: Unremarkable postoperative exam. ACT 112: Negative or not required by law. Electronically signed by: Dain Pickering M.D. 12/01/2024 1:12 PM
--- NOTE | 2024-12-01 13:48 | Anesthesiology Progress Note ---
Date of Service December 01, 2024 Anesthesia Post Procedure Vital Signs Vital Signs: Temp Pulse Resp BP Pulse Ox O2 Del Method O2 Flow Rate 12/01/24 13:40 36.6 C 78 16 123/67 93 Room Air 12/01/24 13:30 78 16 126/70 92 Room Air 12/01/24 13:20 82 20 123/67 93 Room Air 12/01/24 13:10 83 16 127/68 96 Room Air 12/01/24 13:00 90 16 125/70 98 Oxymask 3 12/01/24 12:50 36.5 C 108 H 18 121/72 97 Oxymask 6 12/01/24 07:15 36.7 C 65 20 146/90 H 99 Room Air Transfer of Care Handoff Completed per policy Notes Mental Status: alert / awake / arousable Patient Amnestic to Procedure: Yes Nausea / Vomiting: adequately controlled Pain: adequately controlled Airway Patency, RR, SpO2: stable & adequate BP & HR: stable & adequate Hydration State: stable & adequate Anesthetic Complications: no major complications apparent and Pt Satisfied with anesthetic care
[2024-12-01] MEDS ORDERED: NALOXONE HCL 0.4 MG/1 ML VIAL/CARP IV PRN (15:03)
[2024-12-01] MEDS ORDERED: POLYETHYLENE (MIRALAX) 17 GM PACK PO PRN (15:03)
[2024-12-01] MEDS ORDERED: HYDROmorphone INJ 0.5 MG/0.5 ML SYR IV PRN (15:03)
[2024-12-01] MEDS ORDERED: LAVAGE SOLUTION 4000ML PO SCH (15:03)
[2024-12-01] MEDS ORDERED: ALUMINUM/MAGNESIUM SUSP 30 ML UDC PO PRN (15:03)
[2024-12-01] MEDS ORDERED: METOCLOPRAMIDE HCL INJ 5 MG/ML 2 ML VIAL IV PRN (15:03)
[2024-12-01] MEDS: SODIUM CHLORIDE 0.9% 1,000 ML IV SCH (15:27)
[2024-12-01] MEDS: KETOROLAC 30 MG/ML VIAL IV SCH (16:13)
[2024-12-01] MEDS: ASCORBIC ACID 500 MG TAB PO SCH (18:44)
[2024-12-01] MEDS: TRANEXAMIC ACID / 0.7% NACL 1,000 MG/100 ML BAG IV SCH (20:31)
[2024-12-01] MEDS: CALCIUM 600MG + VIT D 400 IU TAB PO SCH (20:36)
[2024-12-01] MEDS: DOCUSATE SODIUM 100 MG CAP PO SCH (20:39)
[2024-12-01] MEDS: SENNA 8.6 MG TAB PO SCH (20:39)
[2024-12-01] MEDS: ONDANSETRON INJ 2 MG/ML 2 ML VIAL IV PRN (20:43)
[2024-12-01] MEDS ORDERED: SENNA 8.6 MG TAB PO SCH (21:00)
[2024-12-02 06:43] LABS: Hematocrit (blood only) 27.8 % (37.0-47.0); Hemoglobin 9.3 g/dl (12.0-16.0); Mean Corpuscular Hemoglobin 31.8 pg (25.0-34.0); Mean Corpuscular Volume 95.2 fL (80.0-100.0); Platelet Count 213 K/uL (130-400); RDW Standard Deviation 43.7 fL (36.4-46.3); Red Blood Count 2.92 M/uL (4.20-5.40); White Blood Count 10.04 K/ul (4.8-10.8)
[2024-12-02 06:58] LABS: Anion Gap 5.0 (3-11); Blood Urea Nitrogen 12.0 mg/dl (6-23); Calcium 8.6 mg/dl (8.6-10.3); Carbon Dioxide 27.0 mmol/L (21-32); Chloride 98.0 mmol/L (98-107); Creatinine Clr Calc Pharmacy 81.7 ml/min; Glucose 116.0 mg/dl (70-99(Fasting)); Potassium 4.5 mmol/L (3.5-5.1); Sodium 130.0 mmol/L (136-145)
--- NOTE | 2024-12-02 08:03 | Orthopedic Progress Note ---
Date of Service December 02, 2024 Assessment & Plan (1) Status post revision of total replacement of left knee: Plan: 59-year-old female postop day 1 from a left revision arthroplasty for aseptic loosening. She is doing well orthopedically. Pain is controlled. She is neurologically intact. Her bowels seem to be doing okay. She is passing some gas. Plan: 1. DVT prophylaxis including Thiede teds, SCDs, and Xarelto for 30 days. 2. PT/OT. Weight-bear as tolerated left total knee protocol. 3. Pain control. Doing okay with current pain regimen. Working to try and limit narcotics that she has had significant GI issues after previous surgery and will try to stick to Tylenol is much as possible. 4. Disposition. Plan is to discharge to home with some home health. Will see how therapy goes today. (2) Hyperlipidemia: (3) Depression with anxiety: Admission and Anticipated Discharge Date Admission Date: December 01, 2024 Subjective 59-year-old female now postop day 1 from a left revision total knee arthroplasty for aseptic loosening. She is doing well. Really not have much pain. No chest pain or shortness of breath. She states she has been passing gas. She is taking it easy on the food. Has not really taken much at all pain medicine. Physical Exam Physical Exam: Physical examination is a pleasant middle-aged female. She is sitting up in bed eating breakfast looks comfortable. Examination of left leg reveals the leg to be well aligned. Dressings clean dry and intact. She can dorsiflex and plantarflex the foot appropriately. She is neurologically intact. Good straight leg raise. Respiratory: normal respiratory effort, lungs clear to auscultation Cardiovascular: RRR, no murmur, no edema Gastrointestinal (Abdomen): normal bowel sounds, soft, nontender, no hepatosplenomegaly Results & Data Vital Signs (Past 12 Hours) Vital Signs Temp Pulse Resp BP Pulse Ox O2 Del Method 12/02/24 07:06 36.8 C 70 16 121/77 100 Room Air 12/02/24 02:00 36.8 C 64 20 115/66 98 Room Air 12/01/24 22:35 36.4 C L 81 16 102/66 100 Room Air 12/01/24 21:30 74 20 101/64 98 Room Air Laboratory Results Hemoglobin is 9.3. Hematocrit is 27.8. Electrolytes are stable. (2) Hyperlipidemia Hyperlipidemia type: pure hypercholesterolemia Qualified Code(s): E78.00 - Pure hypercholesterolemia, unspecified
[2024-12-02] MEDS: MULTIVITAMIN TAB PO SCH (08:23)
[2024-12-02] MEDS: CYANOCOBALAMIN (B-12) 500 MCG TABLET PO SCH (08:25)
[2024-12-02] MEDS: FERROUS SULFATE 325 MG TAB PO SCH (08:26)
[2024-12-02] MEDS: dexAMETHasone 10 MG in SYRINGE 0 ML IV SCH (08:27)
[2024-12-02] MEDS ORDERED: CALCIUM CARB MAGNESIUM CARB PO SCH (09:00)
[2024-12-02] MEDS ORDERED: PHYTONADIONE 100 MCG PO SCH (09:00)
[2024-12-02] MEDS ORDERED: VITAMIN A PALMITATE PO SCH (09:00)
[2024-12-02] MEDS ORDERED: NON-FORMULARY MEDICATION (Zinc 10 mg Tablet) PO SCH (09:00)
[2024-12-02] MEDS: RIVAROXABAN 10 MG TABLET PO SCH (13:12)
[2024-12-02] MEDS: MAGNESIUM HYDROXIDE SUSP 30 ML UDC PO PRN (20:54)
[2024-12-03 07:11] VITALS: BP 147/84; PULSE 69; RESP 16; TEMP 98.2; O2SAT 100
--- NOTE | 2024-12-03 07:36 | Orthopedic Progress Note ---
Date of Service December 03, 2024 Assessment & Plan (1) Status post revision of total replacement of left knee: Plan: 59-year-old female postop day 2 from a left revision R knee arthroplasty with for aseptic loosening doing well. Hypotension seems to be improved. Pain is controlled. She is neurologically intact. She has had some GI issues in the past but had a bowel movement already and feeling well. Plan: 1. DVT prophylaxis including thigh-high teds, SCDs, aspirin twice a day. 2. PT/OT. Weight-bear as taught. Left total knee protocol. 3. Pain control. Doing okay with current pain regimen. Will try to limit narcotics to avoid GI issues. 4. Hypotension. Seems to be resolved. She been up walking quite well without any symptoms. 5. Disposition. Plan is discharge to home with some home health later today. Admission and Anticipated Discharge Date Admission Date: December 01, 2024 Subjective 59-year-old female postop day 2 from a left revision total knee arthroplasty for aseptic loosening. She is doing better this morning. Pain is controlled. She has been able to get up and around the better. Less dizziness and lightheadedness. She has had a bowel movement. Physical Exam Physical Exam: Physical nation is a pleasant middle-age female. Sitting in bed looks comfortable. Examination of left leg reveals dressing be clean dry and intact. She can do a straight leg raise with some effort. She can dorsiflex and plantarflex her foot appropriately. She is neurologically intact. Respiratory: normal respiratory effort, lungs clear to auscultation Cardiovascular: RRR, no murmur, no edema Gastrointestinal (Abdomen): normal bowel sounds, soft, nontender, no hepatosplenomegaly Results & Data Vital Signs (Past 12 Hours) Vital Signs Temp Pulse Resp BP Pulse Ox O2 Del Method 12/03/24 07:10 36.8 C 69 16 147/84 H 100 Room Air 12/02/24 22:45 36.4 C L 66 18 167/93 H 99 Room Air
--- NOTE | 2024-12-05 17:06 | Discharge Summary ---
Date of Service December 05, 2024 Admission HPI (Per Admitting) . The patient is a 59-year-old female now approximately 6 months out from [facility] total knee replacement revision for aseptic loosening. Her right knee is doing great. She continues to be bothered by left knee pain discomfort and swelling. She had both of her knees initially replaced by Dr. Gongora No 7. She did quite well for many years. Over the past several years that she has developed increased pain discomfort in both knees. She had an extensive infection workup which has been negative to date. X-rays show loosening of both tibial trays. She had her right knee revised and is done well. She now presents for left knee revision.She has pain and discomfort in his knee. It swells quite a bit. She limps all day long. Of note, patient does have a history of gastric bypass surgery. She had some GI issues after her last surgery which took a while to recover. Admission Exam (Per Admitting) . Physical examination reveals a pleasant middle-age female. Looks in good health. Her HEENT exam is benign. Neck supple no lymphadenopathy lungs clear auscultation. Heart is a regular rate and rhythm james soft nontender nondistended extremity Emge grossly neuro vas intact up as follows. Examination of the right knee reveals patient walks without any limp on the side. Her knee incisions healed nicely. Not much swelling. Range of motion streamed is 0-1 20. Good straight leg raise. No instability. Examination of the left knee reveals moderate-sized soft tissue envelope. She got a significant knee joint effusion. Range of motion is 0-1 10. She does have some varus valgus laxity. No pain with hip motion. Principal Diagnosis Same as "Discharge Diagnosis" noted below under Discharge Instructions. Discharge Exam GENERAL: AA&Ox3, NAD. Pleasant, affect is calm. Sitting on edge of bed and appears comfortable. RESPIRATORY: Normal respiratory effort with no signs of distress. CHEST/AXILLA: Chest movement symmetrical. No deformities noted. CARDIOVASCULAR: No edema noted. SKIN: Eldred, warm and dry. MS/EXTREMITY: Knee dressing intact with dry gauze. NVI distally. Calf soft/NT. PT/DP pulses intact, 2+. Able to SLR without assistance. Discharge Data Procedures Performed Operation Date: 12/01/24 08:50 Actual Procedures p Left Revision Total Knee Arthroplasty(Left) - Brett Nelson MD Ordered Studies 12/01/24 05:00 US - OR guided needle placemen Routine Hospital Course (1) Status post revision of total replacement of left knee: PG Care Time/CCT Total # of Minutes Spent Total Time Spent with Patient: Total time spent is greater than 50% in coordination of care (as documented) at patient's floor/unit and/or counseling patient: Discharge Plan Discharge Items Patient Disposition: Home - Home Health Services Reason For Visit: Chronic Knee Pain after Total Replacement Discharge Diagnosis: Left Knee Replacement Revision Activity: Per Instructions section Weightbearing: Full weightbearing Non-emergency contact: Surgeon Call non-emergency contact if: you have any medication questions Follow-up/Referrals: Sanjeev Weinberg MD [Primary Care Provider] - Diet: Regular Addtl Attending Provider Instructions: ACTIVITY RECOMMENDATIONS: Diet: * You may resume previous diet. Physical Therapy: * You will go to physical therapy three times each week for four to six weeks after your surgery in order to regain your knee range of motion and to retrain your knee to work properly. * It is just as important to make sure you are getting your knee perfectly straight as it is to regain your knee bend. * Taking a pain pill an hour before therapy can help you have a more productive and comfortable therapy session. Home Exercise: * You were shown a series of exercises (heel props, heel slides, etc.) in the hospital. Do these exercises three to four times each day including the exercises you were shown in physical therapy. Walking: * Get up and walk several times each day. For the first four weeks, try not to stand or walk for more than one hour at a time. If you do stand or walk for more than one hour, you will not hurt anything, but your knee and leg will likely swell. * As you feel comfortable, you may change from the walker or crutches to a cane and then to independent walking. MEDICATIONS: New Medicine: * You will likely be taking one or more of these medications: 1. Tramadol - A quick and shorter-acting pain medication. Take one to two tablets every six hours to lessen your pain. 2. Aspirin - Thins your blood to lessen the chance of forming a blood clot. * The most common side effects of pain medicine and iron are nausea and constipation. If nausea or constipation is too much of a problem or if you have any questions about your new medicines or doses, call [facility] at . We will try to help you manage these issues. "VERY IMPORTANT TO READ AND REVIEW" Pain: * The immediate post-operative period after knee replacement surgery is often quite painful. * You are given a prescription for pain medicine. You should take it, as directed, when you need it, especially before physical therapy and before going to bed. Pain that interferes with sleep is very common and can last several months. * You will likely need pain medicine for the first four to six weeks. It will not stop all of the pain. The pain will lessen and as you feel better, you may change to milder pain medicine such as Tylenol. * The most common side effects of pain medicine are nausea and constipation, so don't take more than you need. SPECIAL CARE INSTRUCTIONS: TEDs/Elastic Stockings: * The white elastic stockings help limit swelling and prevent blood clots from forming in your legs. The more you wear them, the more they work. * Wear them for six weeks after knee replacement surgery and four weeks after partial knee replacement. Incision Site Care: * Remove dressing postoperative day 2 and then shower. Keep direct shower pressure off the incision site. * After showering, cover caryn with dry gauze and change daily or more frequently if the dressing is getting saturated with drainage. * Use the HOLLY stockings to hold dressing in place. DO NOT apply tape on the skin. * May completely stop using bandage if wound is dry and no drainage * Caryn are removed between 2 and 3 weeks post-op. If your follow-up appointment is made before 2 weeks, please have your appointment re- scheduled. It is too early to remove the caryn. Prevention of Infection: * Take antibiotics one hour before any dental cleaning, dental work, urological procedure, gastrointestinal procedure or any invasive surgery in order to prevent your new joint from getting infected. * You may get the antibiotics from the doctor performing the procedure or you may call our office at [phone] before and we will call in a prescription to the pharmacy of your choice. Things to Watch For: * Drainage from the incision site that occurs more than one week after your surgery. * Severely increased knee/leg pain or swelling. * Increased redness at the incision site. * Fever above 102 degrees Fahrenheit. * Unusual chest pain or shortness of breath. * Unusual pain or burning with urination. Call [facility] at [phone] with any of the above problems or if you have any questions about your medicines or recovery. FOLLOW UP VISIT: Make an appointment to see your doctor for approximately two weeks after surgery for a progress check and staple removal by calling the office at [phone]. Pending Studies at Discharge: No Stand-Alone Forms: My [facility], Smoking Cessation Medications and DC Order Prescriptions: Continued fluoxetine 40 mg capsule 40 mg PO QAM Qty: 30 6RF peg 3350-electrolytes [Golytely] 236-22.74-6.74 -5.86 gram recon soln 240 ml PO Q10M Qty: 4000 0RF Patient Comments: has not had colonoscopy yet Rx Instructions: Take per split dose instructions Xarelto 10 mg tablet 10 mg PO DAILY 30 Days Qty: 30 0RF Patient Comments: post op Rx Instructions: Take to prevent blood clots after surgery. tramadol 50 mg tablet 50 - 100 mg PO Q6 PRN (Reason: pain) Qty: 30 0RF Patient Comments: post op Rx Instructions: Take as needed for pain ondansetron 4 mg tablet,disintegrating 4 mg PO Q8 PRN (Reason: nausea) Qty: 20 1RF Patient Comments: post op Rx Instructions: Take as needed for nausea sennosides [Senokot] 8.6 mg tablet 8.6 mg PO BID 14 Days Qty: 28 0RF Patient Comments: post op Rx Instructions: Take two times a day to prevent/treat constipation acetaminophen [Tylenol Extra Strength] 500 mg tablet 1,000 mg PO TID 30 Days Qty: 180 0RF Rx Instructions: Take 3 times per day to lessen pain. calcium carb-magnesium carb 1 tab PO DAILY vitamin A palmitate 3,000 mcg (10,000 unit) tablet 3,000 mcg PO QAM phytonadione (vitamin K1) 100 mcg tablet 100 mcg PO QAM zinc 10 mg Tablet 10 mg PO QAM cyanocobalamin (vitamin B-12) [Vitamin B-12] 1,000 mcg Tablet 1,000 mcg PO Q3D cholecalciferol (vitamin D3) 1,250 mcg (50,000 unit) tablet 1,250 mcg PO Q7D Rx Instructions: orally weekly; ascorbic acid (vitamin C) [Vitamin C] 1,000 mg tablet 1 g PO DAILY PRN (Reason: Cold Symptoms) levomefolate calcium 15 mg tablet 15 mg PO QAM PRN (Reason: Wellbutrin Absorption) calcium citrate-vitamin D3 [Calcium Citrate + D] 315 mg-5 mcg (200 unit) Tablet 2 tab PO BID polyethylene glycol 3350 [Miralax] 17 gram powder in packet 17 g PO DAILY PRN (Reason: Constipation) Rx Instructions: OTC. Take to titrate for once a day bowel movements. ferrous sulfate [Iron (ferrous sulfate)] 325 mg (65 mg iron) Tablet 65 mg PO Q OTHER DAY Discharge Orders: Discharge Order (Routine); Ordered 12/03/24 Ordered By: Brett Nelson Admission Data Admit Date/Time: 12/01/24 12:54 Attending Provider: Brett Nelson Admit Provider: Brett Nelson Primary Care Provider: Sanjeev Weinberg Other Providers: [facility],Home Health Other Interventions: Discharge Summary Assessment (RN) Last Done: 12/03/24 12:56
[2024-12-06] MEDS ORDERED: ERGOCALCIFEROL 1250 MCG (50,000 UNITS) CAP PO SCH (09:00)
== END 2024-12-03 14:02 | disposition home health service (06) | DRG 468 ==
LOC: ASU 07:08 → INTOOBSV 12:54 → 3E 12:54